=== PATIENT | male | born 1945 | race Caucasian/White ===

== ENCOUNTER 2019-06-17 06:00 | Outpatient (RCR) | payer MEDICARE, SELFPAY | END 2019-06-29 00:01 | LOC: APT 06:00 | PROVIDERS: Family Provider Family Medicine; Visit Provider Specialist | DX: Z47.1 Aftercare following joint replacement surgery (principal); Z96.651 Presence of right artificial knee joint | CPT/HCPCS: 97110 ×3; 97163 ==

== ENCOUNTER 2019-07-01 | Outpatient (RCR) | payer MEDICARE, SELFPAY | END 2019-07-30 23:59 | disposition home or self-care (01) | LOC: APT | PROVIDERS: PCP Family Medicine; Visit Provider Specialist | DX: Z47.1 Aftercare following joint replacement surgery (principal); Z96.651 Presence of right artificial knee joint | CPT/HCPCS: 97110 ==

== ENCOUNTER → 2019-07-05 09:54 | Outpatient (BNVA) | payer MEDICARE, SELFPAY | PROVIDERS: Family Provider Family Medicine; PCP Family Medicine; Visit Provider Specialist | DX: Z48.89 Encounter for other specified surgical aftercare (principal) | CPT/HCPCS: 73560; 73565 ==

== ENCOUNTER 2019-09-02 15:49 | Outpatient (CLI) | payer MEDICARE, SELFPAY ==
--- NOTE | 2019-09-02 | XR_ITS ---
WS: [id number] CHEST 2 VIEWS HISTORY: PRODUCTIVE COUGH COMPARISON: 05/31/2019 05/07/2019 Lungs: Moderate pulmonary hyperinflation with scattered granulomata. Patient has a known indeterminat e mass at the RIGHT lung base seen on the prior CT from 05/31/2019. This mass is not adequately evalua mikael radiographically. There is no pneumonia. Cardiac size: Normal. Mediastinum/Aorta: Mild atherosclerosis aorta. Bones: Thoracic spondylosis. XR/XR chest 2V* 26119 IMPRESSION: 1. Severe emphysema with no pneumonia. 2. Prior granulomatous disease. 3. Indeterminate mass at the RIGHT lung base seen on the chest CT of 05/31/2019 is not definitely seen radiographically. Radiograph is not an adequate study f or evaluating change. Chest CT with IV contrast should be obtained as recommend ed.
== END 2019-09-02 15:50 | disposition home or self-care (01) ==
LOC: RADOUTREAD 09-03 07:39
PROVIDERS: Family Provider Family Medicine; PCP Family Medicine; Visit Provider Family Medicine
DX: Z01.89 Encounter for other specified special examinations (principal)

== ENCOUNTER 2019-09-24 12:21 | Outpatient (CLI) | payer MEDICARE, SELFPAY ==
--- NOTE | 2019-09-24 12:39 | CT_ITS ---
WS: [id number] CT scan of the chest without IV contrast, additional two-dimensional coronal and sagittal reconstruct ion was performed. 09/24/2019 Clinical Data: ABNORMAL FINDINGS ON IMAGING TEST Comparison: CT chest, 05/31/2019 DLP: 1045.[address] scans at [facility] use at least one of these dose optimization techniques: automat ed exposure control; mA and/or kV adjustment per patient size (includes targeted exams where dose is matched to clinical indication); or iterative reconstruction. Findings: The right lower lobe posterior lesion noted on the prior study has completely cleared. Ther e is no residual. The lungs shows the changes of bullous emphysema. No nodules, masses or effusions a re seen. The heart size is normal with no pericardial effusion. Trachea bifurcates normally into the bronchi. The pulmonary arterial system and thoracic aorta demonstrate no abnormalities or dilatations . There is no axillary or significant mediastinal adenopathy. Calcified granulomas in both radha and t he subcarinal area. There are calcified granulomas in the peripheries of both lungs. The upper abdomen shows no change from before. There is osteoarthritic change of the thoracic vertebr al bodies. CT/CT chest wo con 52961 Impression: 1. Complete clearing of right lower lobe density which probably represented min imal basilar pneumonia. 2. Diffuse bullous emphysema unchanged.
== END 2019-09-24 12:22 | disposition home or self-care (01) ==
LOC: RADWPI 12:26
PROVIDERS: Family Provider Family Medicine; PCP Family Medicine; Visit Provider Family Medicine
DX: J43.9 Emphysema, unspecified (principal); R93.89 Abnormal findings on diagnostic imaging of other specified body structures
CPT/HCPCS: 71250

== ENCOUNTER → 2019-11-17 09:22 | Outpatient (BNVA) | payer MEDICARE, SELFPAY | PROVIDERS: Family Provider Family Medicine; PCP Family Medicine; Visit Provider Specialist | DX: Z48.89 Encounter for other specified surgical aftercare (principal); Z98.890 Other specified postprocedural states; Z96.651 Presence of right artificial knee joint | CPT/HCPCS: 73560; 73565 ==

== ENCOUNTER 2019-11-25 07:17 | Outpatient (CLI) | payer MEDICARE, SELFPAY ==
--- NOTE | 2019-11-25 08:00 | NM_ITS ---
WS: [id number] THREE-PHASE BONE SCAN HISTORY: ankle pain past surgery and fracture to ankle COMPARISON: Ankle radiographs obtained on 11/25/2019 for comparison. Patient is is injected with 25.7 mCi Tc99m HDP intravenously. Immediate angiographic phase imaging is performed over the area of concern. Static blood pool imaging also performed. Two-hour whole-body sc intigrams performed in anterior and posterior projections. Additional large field of view imaging sub mitted as necessary. 3 phase bone scan imaging is performed over the ankles. RIGHT ankle: Angiographic and blood pool phase imaging is normal. Delayed imaging is also normal. The re is no increased uptake at the ankle.. Prior RIGHT knee arthroplasty. Degenerative changes at the LEFT knee and at the AC joints and glenohu meral joints. Normal soft tissue uptake. Normal activity in the kidneys. NM/NM bone 3 phase 29342 IMPRESSION: Negative three-phase bone scan imaging of the RIGHT ankle. There is no evidence for osteomyelitis or acute fracture.
--- NOTE | 2019-11-25 10:47 | XR_ITS ---
WS: [id number] RIGHT ANKLE: 3 VIEW(S) TECHNIQUE: AP, oblique(s) and lateral. HISTORY: BONE SCAN COMPARISON COMPARISON: Bone scan imaging 11/25/2019. Bone scan was obtained to evaluate the RIGHT ankle. Plate and screw fixation distal fibula. No residual fracture. Screw fixation at the medial malleolus. There is mild narrowing of the tibiotalar joint space. No lucency around the screws or soft tissue e travis. No joint effusion. No soft tissue abnormality. XR/XR ankle RT min 3V* [id number] IMPRESSION: Status post bimalleolar ORIF. Mild degenerative changes at the tibiotalar joint.
== END 2019-11-25 07:18 | disposition home or self-care (01) ==
LOC: RAD 07:22
PROVIDERS: PCP Family Medicine; Visit Provider Specialist
DX: M25.571 Pain in right ankle and joints of right foot (principal)
CPT/HCPCS: 73610; 78315; A9561

== ENCOUNTER 2020-01-19 14:07 | Emergency (ER) | payer MEDICARE, SELFPAY ==
[2020-01-19 14:10] VITALS: BP 97/69; PULSE 84; RESP 20; TEMP 36.7; O2SAT 97; BMI 29.9
--- NOTE | 2020-01-19 15:07 | ED_ITS ---
Documented by User: LIZANDRO Rousseau 01/20/20 07:08 HPI - Abdominal Pain General: Chief Complaint: Abdominal Pain Stated Complaint: sent over by doctor fidelia Time Seen by Provider: 01/19/20 14:59 Source: patient Mode of arrival: ambulatory Limitations: no limitations History of Present Illness: HPI narrative: Patient is a 74-year-old male who presents to ED today along with his daughter for complaints of right upper quadrant pain and yellowing to his skin and eyes. Patient was seen by PCP Dr. Thompson and referred here for further evaluation. Patient tells me on Friday he began having a few episodes of non-bloody vomit. He states the following day he began developing right upper quadrant pain and noticed yesterday his skin and eyes turning yellow. Patient tells me he has no previous history of gallbladder disease. He has not been running fevers. He is having normal bowel movements. Urinary habits have been normal apart from some darker than normal urine. MD elicited complaint: abdominal pain Associated Symptoms: Reports nausea and vomiting; Denies change in stool character, chills, constipation, diarrhea, fever(s), hematochezia and melena Review of Systems Const: Denies: fever(s), chills or body aches Eyes: Reports: other (yellowing to eyes) Card: Denies: chest pain Resp: Denies: dyspnea GI: Reports: abdominal pain, nausea and vomiting; Denies: diarrhea, constipation, change in stool character, hematochezia, melena or white/light colored stool : Reports: other (dark colored urine); Denies: flank pain Skin/Breast: Denies: rash Neuro: Denies: headache(s), numbness in extremities, weakness in extremities or sensory changes PFS ED PFSH: Medical History (Updated 01/19/20 @ 21:22 by SKY Castro) Diabetes mellitus type 1 Primary osteoarthritis of right knee Surgical History Hx of total knee arthroplasty Right knee Family History Mother Hypertension Myocardial infarction CAD (coronary artery disease) Son Diabetes Social History Smoking and tobacco status: former smoker Alcohol intake: current Physical Exam Const: COMMON NORMALS: no acute distress, patient oriented x3, no limitations and alert NUTRITIONAL APPEARANCE: obese Eye: SCLERA: scleral abnormal (scleral icterus) Resp: COMMON NORMALS: normal respiratory effort and clear to auscultation bilaterally AUSCULTATION: clear to auscultation bilaterally Cardio: COMMON NORMALS: regular rate and regular rhythm RATE: regular rate RHYTHM: regular rhythm GI: COMMON NORMALS: Normal to inspection, nondistended, normoactive bowel sounds present, Soft to palpation, No hepatosplenomegaly present and no masses PALPATION: Yes Soft to palpation, Yes Tenderness to palpation present (GI) (RUQ) and Yes No hepatosplenomegaly present : COMMON NORMALS: Yes no CVA tenderness BLADDER/KIDNEY EXAM: Yes no CVA tenderness Back/Pelvis: COMMON NORMALS: no CVA tenderness Neuro: COMMON NORMALS: patient oriented x3 SENSORIUM/ORIENTATION: Yes alert Skin: NARRATIVE SKIN EXAM: jaundice Course Vital Signs: Vital signs: Vital Signs Temperature 98.1 F 01/19/20 14:10 Pulse Rate 72 01/19/20 21:51 Respiratory Rate 16 01/19/20 21:51 Blood Pressure 135/78 01/19/20 21:51 Pulse Oximetry 95 01/19/20 21:51 MDM - Abdominal Pain MDM Narrative: Medical decision making narrative: Patient with elevated LFTs, alk phos, lipase. Gallbladder ultrasound showing cholelithiasis with probable CBD stone. Patient will undergo MRCP evaluation. He is aware of possible transfer if a CBD stone is present. Care will be transferred over to SKY Castro at shift change. Lab Data: Labs: Lab Results 01/19/20 01/19/20 01/19/20 Range/Units 15:16 15:16 15:16 WBC 6.9 (4.0-10.0) 10^3/ uL RBC 4.19 (4.1-5.3) 10^6/u L Hgb 13.2 (11.7-16.6) g/dL Hct 40.3 L (42.0-52.0) % MCV 96.2 H (80-94) fL MCH 31.5 (28.0-34.0) pg MCHC 32.8 (30.0-36.0) g/dL RDW 16.8 H (12.1-15.1) % Plt Count 311 (130-400) 10^3/c mm MPV 11.3 H (7.4-10.4) fL Neut % (Auto) 61.1 % Lymph % (Auto) 18.3 % [place] % (Auto) 11.9 % Eos % (Auto) 7.4 % Baso % (Auto) 1.0 % Neut # (Auto) 4.20 (1.8-7.7) 10^3/u L Lymph # (Auto) 1.3 (0.8-4.8) 10^3/u L [place] # (Auto) 0.8 (0.2-0.9) 10^3/u L Eos # (Auto) 0.5 (0.0-0.8) 10^3/u L Baso # (Auto) 0.1 (0.0-0.1) 10^3/u L Nucleated RBC % (a uto) 0 % Nucleated RBCs # 0.0 /100WBC PT 13.10 (10.5-13.3) SECO NDS INR 0.96 (0.8-1.2) APTT 28.4 (23.9-36.7) SECO NDS Sodium 139 (136-145) mmol/L Potassium 4.2 (3.5-5.1) mmol/L Chloride 98 (98-107) mmol/L Carbon Dioxide 25 (22-29) mmol/L Anion Gap 20.2 H (5-19) BUN 54 H (8-23) mg/dL Creatinine 2.5 H (0.7-1.2) mg/dL GFR Calculation Not Reportable Glucose 101 (65-115) mg/dL Calculated Osmolal ity 287 (285-295) mOsm/k g Calcium 10.0 (8.5-10.5) mg/dL Total Bilirubin 17.4 H* (0.15-1.2) mg/dL AST 143 H (0-40) U/L ALT 191 H (0-41) U/L Alkaline Phosphata se 388 H (40-130) IU/L Ammonia (16-60) umol/L Total Protein 7.7 (6.6-8.7) g/dL Albumin 4.1 (3.5-5.2) g/dL Globulin 3.6 (1.3-4.6) g/dL Lipase 192 H (13-60) U/L Urine Color (Yellow) Urine Appearance (CLEAR) Urine pH (5-7) Ur Specific Gravit y (1.005-1.030) Urine Protein (Negative) Urine Glucose (UA) (Normal) Urine Ketones (Negative) Urine Blood (Negative) Urine Nitrate (Negative) Urine Bilirubin (NEGATIVE) Urine Urobilinogen (Negative) mg/dL Ur Leukocyte Erika ase (Negative) Urine RBC (0-2) /hpf Urine WBC (0-5) /hpf Ur Squamous Epith Cells (0-5) Amorphous Sediment Urine Bacteria (NONE) Coarse Granular Ca sts /lpf Urine Mucus Urine Opiates Scre en (Negative) ng/mL Acetaminophen < 5.0 L (10-30) ug/mL Ur Barbiturates Sc reen (Negative) ng/mL Ur Phencyclidine S crn (Negative) ng/mL Ur Amphetamines Sc reen (Negative) ng/mL U Benzodiazepines Scrn (Negative) ng/mL Urine Cocaine Scre en (Negative) ng/mL U Marijuana (THC) Screen (Negative) ng/mL Ethyl Alcohol < 10 (0-10) mg/dL Hepatitis A IgM Ab Non-reactive (Nonreactive) Hep Bs Antigen Non-reactive (Nonreactive) Hep B Core IgM Ab Non-reactive (Nonreactive) Hepatitis C Antibo dy Non-reactive (Nonreactive) 01/19/20 01/19/20 01/19/20 Range/Units 15:16 15:42 15:42 WBC (4.0-10.0) 10^3/ uL RBC (4.1-5.3) 10^6/u L Hgb (11.7-16.6) g/dL Hct (42.0-52.0) % MCV (80-94) fL MCH (28.0-34.0) pg MCHC (30.0-36.0) g/dL RDW (12.1-15.1) % Plt Count (130-400) 10^3/c mm MPV (7.4-10.4) fL Neut % (Auto) % Lymph % (Auto) % [place] % (Auto) % Eos % (Auto) % Baso % (Auto) % Neut # (Auto) (1.8-7.7) 10^3/u L Lymph # (Auto) (0.8-4.8) 10^3/u L [place] # (Auto) (0.2-0.9) 10^3/u L Eos # (Auto) (0.0-0.8) 10^3/u L Baso # (Auto) (0.0-0.1) 10^3/u L Nucleated RBC % (a uto) % Nucleated RBCs # /100WBC PT (10.5-13.3) SECO NDS INR (0.8-1.2) APTT (23.9-36.7) SECO NDS Sodium (136-145) mmol/L Potassium (3.5-5.1) mmol/L Chloride (98-107) mmol/L Carbon Dioxide (22-29) mmol/L Anion Gap (5-19) BUN (8-23) mg/dL Creatinine (0.7-1.2) mg/dL GFR Calculation Glucose (65-115) mg/dL Calculated Osmolal ity (285-295) mOsm/k g Calcium (8.5-10.5) mg/dL Total Bilirubin (0.15-1.2) mg/dL AST (0-40) U/L ALT (0-41) U/L Alkaline Phosphata se (40-130) IU/L Ammonia 19 (16-60) umol/L Total Protein (6.6-8.7) g/dL Albumin (3.5-5.2) g/dL Globulin (1.3-4.6) g/dL Lipase (13-60) U/L Urine Color [place] (Yellow) Urine Appearance Clear (CLEAR) Urine pH 5 (5-7) Ur Specific Gravit y 1.010 (1.005-1.030) Urine Protein Trace (Negative) Urine Glucose (UA) Norm (Normal) Urine Ketones Negative (Negative) Urine Blood Neg (Negative) Urine Nitrate Negative (Negative) Urine Bilirubin 2+ H (NEGATIVE) Urine Urobilinogen 4 H (Negative) mg/dL Ur Leukocyte Erika ase Negative (Negative) Urine RBC None (0-2) /hpf Urine WBC 0-4 H (0-5) /hpf Ur Squamous Epith Cells 0-4 H (0-5) Amorphous Sediment Not Reportable Urine Bacteria 1+ H (NONE) Coarse Granular Ca sts 0-4 H /lpf Urine Mucus 1+ Urine Opiates Scre en Negative (Negative) ng/mL Acetaminophen (10-30) ug/mL Ur Barbiturates Sc reen Negative (Negative) ng/mL Ur Phencyclidine S crn Negative (Negative) ng/mL Ur Amphetamines Sc reen Negative (Negative) ng/mL U Benzodiazepines Scrn Negative (Negative) ng/mL Urine Cocaine Scre en Negative (Negative) ng/mL U Marijuana (THC) Screen Negative (Negative) ng/mL Ethyl Alcohol (0-10) mg/dL Hepatitis A IgM Ab (Nonreactive) Hep Bs Antigen (Nonreactive) Hep B Core IgM Ab (Nonreactive) Hepatitis C Antibo dy (Nonreactive) Imaging Data ^: US gallbladder: Radiologist's impression: [address] [address] Ultrasound Report Signed Patient: Rohit Merritt Unit #: [id number] : 1945 Age/Sex: 74 / M ADM Date: 01/19/20 Loc: ER Room/Bed: Attending Dr: Ordering Provider/Ordering MD: Dalila Gotti Date of Service: 01/19/20 Procedure(s): US gall bladder 27671 Accession Number(s): [id number] Report Number: [id number] WS: [id number] RIGHT UPPER QUADRANT ULTRASOUND HISTORY: pain; jaundice COMPARISON: None available. Liver: 21.1 cm in length. Liver is moderately enlarged with coarsened echotexture. Very mild central bile duct dilatation. Gallbladder: Normally distended gallbladder with numerous stones. Gallbladder wall is top normal in 3 to 4 mm. No pericholecystic fluid. CBD: 1.0 cm Pancreas: Poorly visualized pancreas. No pancreatic head mass. Right kidney: 9.1 cm in length. Normal echogenicity with no mass or hydronephrosis. Aorta and IVC: Unremarkable. No ascites. US/US gall bladder 55076 IMPRESSION: 1. Cholelithiasis without other evidence for acute cholecystitis. 2. Dilated common bile duct and mild central hepatic duct dilatation. Recommend further evaluation by CT to exclude common bile duct stone. Dictated By: Jeane Mendoza DO Signed By: Jeane Mendoza DO Signed Date/Time: 01/19/20 1606 DD/ 1603 Discharge Plan Discharge Patient Disposition: Xfer Other Clinical Impression: Common bile duct (CBD) obstruction Condition: Stable Referrals: Kyle Thompson MD [Primary Care Provider] - Discharge Date/Time: 01/19/20 23:18 Coding Level of Care Code ED Blender/Braze Applicator for Chg Fwd Exam Detailed Documented by User: SKY Castro 01/19/20 23:18 HPI - Abdominal Pain General: Chief Complaint: Abdominal Pain Stated Complaint: sent over by doctor fidelia Time Seen by Provider: 01/19/20 14:59 PFSH ED PFSH: Medical History (Updated 01/19/20 @ 21:22 by SKY Castro) Diabetes mellitus type 1 Primary osteoarthritis of right knee Surgical History Hx of total knee arthroplasty Right knee Family History Mother Hypertension Myocardial infarction CAD (coronary artery disease) Son Diabetes Social History Smoking and tobacco status: former smoker Alcohol intake: current Course Vital Signs: Vital signs: Vital Signs Temperature 98.1 F 01/19/20 14:10 Pulse Rate 72 01/19/20 21:51 Respiratory Rate 16 01/19/20 21:51 Blood Pressure 135/78 01/19/20 21:51 Pulse Oximetry 95 01/19/20 21:51 MDM - Abdominal Pain MDM Narrative: Medical decision making narrative: [facility] think patient spoke with [facility] in transfer he spoke with Dr. Albaro Francis agreed except patient I was not involved speaking to Dr. Avila paperwork was signed patient's MRCP was positive for stone in the common bile duct will be going by ground ambulance Lab Data: Labs: Lab Results 01/19/20 01/19/20 01/19/20 Range/Units 15:16 15:16 15:16 WBC 6.9 (4.0-10.0) 10^3/ uL RBC 4.19 (4.1-5.3) 10^6/u L Hgb 13.2 (11.7-16.6) g/dL Hct 40.3 L (42.0-52.0) % MCV 96.2 H (80-94) fL MCH 31.5 (28.0-34.0) pg MCHC 32.8 (30.0-36.0) g/dL RDW 16.8 H (12.1-15.1) % Plt Count 311 (130-400) 10^3/c mm MPV 11.3 H (7.4-10.4) fL Neut % (Auto) 61.1 % Lymph % (Auto) 18.3 % [place] % (Auto) 11.9 % Eos % (Auto) 7.4 % Baso % (Auto) 1.0 % Neut # (Auto) 4.20 (1.8-7.7) 10^3/u L Lymph # (Auto) 1.3 (0.8-4.8) 10^3/u L [place] # (Auto) 0.8 (0.2-0.9) 10^3/u L Eos # (Auto) 0.5 (0.0-0.8) 10^3/u L Baso # (Auto) 0.1 (0.0-0.1) 10^3/u L Nucleated RBC % (a uto) 0 % Nucleated RBCs # 0.0 /100WBC PT 13.10 (10.5-13.3) SECO NDS INR 0.96 (0.8-1.2) APTT 28.4 (23.9-36.7) SECO NDS Sodium 139 (136-145) mmol/L Potassium 4.2 (3.5-5.1) mmol/L Chloride 98 (98-107) mmol/L Carbon Dioxide 25 (22-29) mmol/L Anion Gap 20.2 H (5-19) BUN 54 H (8-23) mg/dL Creatinine 2.5 H (0.7-1.2) mg/dL GFR Calculation Not Reportable Glucose 101 (65-115) mg/dL Calculated Osmolal ity 287 (285-295) mOsm/k g Calcium 10.0 (8.5-10.5) mg/dL Total Bilirubin 17.4 H* (0.15-1.2) mg/dL AST 143 H (0-40) U/L ALT 191 H (0-41) U/L Alkaline Phosphata se 388 H (40-130) IU/L Ammonia (16-60) umol/L Total Protein 7.7 (6.6-8.7) g/dL Albumin 4.1 (3.5-5.2) g/dL Globulin 3.6 (1.3-4.6) g/dL Lipase 192 H (13-60) U/L Urine Color (Yellow) Urine Appearance (CLEAR) Urine pH (5-7) Ur Specific Gravit y (1.005-1.030) Urine Protein (Negative) Urine Glucose (UA) (Normal) Urine Ketones (Negative) Urine Blood (Negative) Urine Nitrate (Negative) Urine Bilirubin (NEGATIVE) Urine Urobilinogen (Negative) mg/dL Ur Leukocyte Erika ase (Negative) Urine RBC (0-2) /hpf Urine WBC (0-5) /hpf Ur Squamous Epith Cells (0-5) Amorphous Sediment Urine Bacteria (NONE) Coarse Granular Ca sts /lpf Urine Mucus Urine Opiates Scre en (Negative) ng/mL Acetaminophen < 5.0 L (10-30) ug/mL Ur Barbiturates Sc reen (Negative) ng/mL Ur Phencyclidine S crn (Negative) ng/mL Ur Amphetamines Sc reen (Negative) ng/mL U Benzodiazepines Scrn (Negative) ng/mL Urine Cocaine Scre en (Negative) ng/mL U Marijuana (THC) Screen (Negative) ng/mL Ethyl Alcohol < 10 (0-10) mg/dL Hepatitis A IgM Ab Non-reactive (Nonreactive) Hep Bs Antigen Non-reactive (Nonreactive) Hep B Core IgM Ab Non-reactive (Nonreactive) Hepatitis C Antibo dy Non-reactive (Nonreactive) 01/19/20 01/19/20 01/19/20 Range/Units 15:16 15:42 15:42 WBC (4.0-10.0) 10^3/ uL RBC (4.1-5.3) 10^6/u L Hgb (11.7-16.6) g/dL Hct (42.0-52.0) % MCV (80-94) fL MCH (28.0-34.0) pg MCHC (30.0-36.0) g/dL RDW (12.1-15.1) % Plt Count (130-400) 10^3/c mm MPV (7.4-10.4) fL Neut % (Auto) % Lymph % (Auto) % [place] % (Auto) % Eos % (Auto) % Baso % (Auto) % Neut # (Auto) (1.8-7.7) 10^3/u L Lymph # (Auto) (0.8-4.8) 10^3/u L [place] # (Auto) (0.2-0.9) 10^3/u L Eos # (Auto) (0.0-0.8) 10^3/u L Baso # (Auto) (0.0-0.1) 10^3/u L Nucleated RBC % (a uto) % Nucleated RBCs # /100WBC PT (10.5-13.3) SECO NDS INR (0.8-1.2) APTT (23.9-36.7) SECO NDS Sodium (136-145) mmol/L Potassium (3.5-5.1) mmol/L Chloride (98-107) mmol/L Carbon Dioxide (22-29) mmol/L Anion Gap (5-19) BUN (8-23) mg/dL Creatinine (0.7-1.2) mg/dL GFR Calculation Glucose (65-115) mg/dL Calculated Osmolal ity (285-295) mOsm/k g Calcium (8.5-10.5) mg/dL Total Bilirubin (0.15-1.2) mg/dL AST (0-40) U/L ALT (0-41) U/L Alkaline Phosphata se (40-130) IU/L Ammonia 19 (16-60) umol/L Total Protein (6.6-8.7) g/dL Albumin (3.5-5.2) g/dL Globulin (1.3-4.6) g/dL Lipase (13-60) U/L Urine Color [place] (Yellow) Urine Appearance Clear (CLEAR) Urine pH 5 (5-7) Ur Specific Gravit y 1.010 (1.005-1.030) Urine Protein Trace (Negative) Urine Glucose (UA) Norm (Normal) Urine Ketones Negative (Negative) Urine Blood Neg (Negative) Urine Nitrate Negative (Negative) Urine Bilirubin 2+ H (NEGATIVE) Urine Urobilinogen 4 H (Negative) mg/dL Ur Leukocyte Erika ase Negative (Negative) Urine RBC None (0-2) /hpf Urine WBC 0-4 H (0-5) /hpf Ur Squamous Epith Cells 0-4 H (0-5) Amorphous Sediment Not Reportable Urine Bacteria 1+ H (NONE) Coarse Granular Ca sts 0-4 H /lpf Urine Mucus 1+ Urine Opiates Scre en Negative (Negative) ng/mL Acetaminophen (10-30) ug/mL Ur Barbiturates Sc reen Negative (Negative) ng/mL Ur Phencyclidine S crn Negative (Negative) ng/mL Ur Amphetamines Sc reen Negative (Negative) ng/mL U Benzodiazepines Scrn Negative (Negative) ng/mL Urine Cocaine Scre en Negative (Negative) ng/mL U Marijuana (THC) Screen Negative (Negative) ng/mL Ethyl Alcohol (0-10) mg/dL Hepatitis A IgM Ab (Nonreactive) Hep Bs Antigen (Nonreactive) Hep B Core IgM Ab (Nonreactive) Hepatitis C Antibo dy (Nonreactive) Discharge Plan Discharge Patient Disposition: Xfer Other Clinical Impression: Common bile duct (CBD) obstruction Condition: Stable Referrals: Kyle Thompson MD [Primary Care Provider] - Discharge Date/Time: 01/19/20 23:18 Coding Level of Care Code ED Blender/Braze Applicator for Chg Fwd Exam Detailed
--- NOTE | 2020-01-19 15:18 | US_ITS ---
WS: [id number] RIGHT UPPER QUADRANT ULTRASOUND HISTORY: pain; jaundice COMPARISON: None available. Liver: 21.1 cm in length. Liver is moderately enlarged with coarsened echotexture. Very mild central bile duct dilatation. Gallbladder: Normally distended gallbladder with numerous stones. Gallbladder wall is top normal in 3 to 4 mm. No pericholecystic fluid. CBD: 1.0 cm Pancreas: Poorly visualized pancreas. No pancreatic head mass. Right kidney: 9.1 cm in length. Normal echogenicity with no mass or hydronephrosis. Aorta and IVC: Unremarkable. No ascites. US/US gall bladder [id number] IMPRESSION: 1. Cholelithiasis without other evidence for acute cholecystitis. 2. Dilated common bile duct and mild central hepatic duct dilatation. Recommen d further evaluation by CT to exclude common bile duct stone.
[2020-01-19 15:28] LABS: Basophils # 0.1 10^3/uL (0.0-0.1); Eosinophils # 0.5 10^3/uL (0.0-0.8); Eosinophils % 7.4 %; Hematocrit 40.3 % (42.0-52.0); Hemoglobin 13.2 g/dL (11.7-16.6); Lymphocytes # 1.3 10^3/uL (0.8-4.8); Lymphocytes % 18.3 %; Mean Corpuscular HGB Conc 32.8 g/dL (30.0-36.0); Mean Corpuscular Hemoglobin 31.5 pg (28.0-34.0); Mean Corpuscular Volume 96.2 fL (80-94); Mean Platelet Volume 11.3 fL (7.4-10.4); Monocytes # 0.8 10^3/uL (0.2-0.9); Monocytes % 11.9 %; Neutrophils % 61.1 %; Nucleated Red Blood Cells % 0 %; Platelet Count 311 10^3/cmm (130-400); Red Blood Count 4.19 10^6/uL (4.1-5.3); Red Cell Distribution Width 16.8 % (12.1-15.1); White Blood Count 6.9 10^3/uL (4.0-10.0)
[2020-01-19 15:42] LABS: Ammonia 19 umol/L (16-60)
[2020-01-19 15:43] LABS: INR 0.96 (0.8-1.2)
[2020-01-19 15:44] LABS: Partial Thromboplastin Time 28.4 SECONDS (23.9-36.7)
[2020-01-19 16:05] LABS: Hepatitis A Antibody IgM Non-Reactive (Nonreactive); Hepatitis B Core IgM Non-Reactive (Nonreactive); Hepatitis B Surface Antigen Non-Reactive (Nonreactive); Hepatitis C Virus Antibody Non-Reactive (Nonreactive)
[2020-01-19 16:17] VITALS: BP 103/59; PULSE 70; RESP 16; O2SAT 99
[2020-01-19 16:17] LABS: Alanine Aminotransferase 191 U/L (0-41); Albumin Level 4.1 g/dL (3.5-5.2); Alkaline Phosphatase 388 IU/L (40-130); Anion Gap 20.2 (5-19); Aspartate Amino Transferase 143 U/L (0-40); Blood Urea Nitrogen 54 mg/dL (8-23); Carbon Dioxide 25 mmol/L (22-29); Chloride 98 mmol/L (98-107); Globulin 3.6 g/dL (1.3-4.6); Glucose 101 mg/dL (65-115); Lipase 192 U/L (13-60); Osmolality Calculated 287 mOsm/kg (285-295); Potassium 4.2 mmol/L (3.5-5.1); Sodium 139 mmol/L (136-145); Total Protein 7.7 g/dL (6.6-8.7)
[2020-01-19 16:24] LABS: Acetaminophen < 5.0 ug/mL (10-30); Alcohol Level < 10 mg/dL (0-10); Total Bilirubin 17.4 mg/dL (0.15-1.2)
[2020-01-19 16:30] LABS: Amphetamines Screen Urine Negative (Negative); Barbiturates Screen Urine Negative (Negative); Benzodiazepines Screen Urine Negative (Negative); Cocaine Screen Urine Negative (Negative); Opiate Screen Urine Negative (Negative); PCP Screen Urine Negative (Negative); THC Screen Urine Negative (Negative)
[2020-01-19 16:37] LABS: Urine Appearance Clear (CLEAR); Urine Color Orange (Yellow)
[2020-01-19 16:38] LABS: Add Urine Microscopic? YES; Bilirubin Urine 2+ (NEGATIVE); Blood Urine Neg (Negative); Glucose Urine UA Norm (Normal); Ketones Urine Negative (Negative); Leukocyte Esterase Urine Negative (Negative); Nitrate Urine Negative (Negative); Protein Urine Trace (Negative); Squamous Epithelial Cell Urine 0-4 (0-5); Urobilinogen Urine 4 mg/dL (Negative); WBC Urine 0-4 /hpf (0-5); pH Urine 5 (5-7)
[2020-01-19 16:39] LABS: Add Urine Culture? No; Bacteria Urine 1+; Coarse Granular Casts Urine 0-4 /lpf; Mucus Urine 1+
--- NOTE | 2020-01-19 16:42 | MRR_ITS ---
PROCEDURE INFORMATION: Exam: MR Abdomen Without Contrast, MRCP Exam date and time: 01/19/2020 4:43 PM Age: 74 years old Clinical indication: Constipation and vomiting; Additional info: Ruq pain; Elevated lfts, lipase; Possible cbd stone TECHNIQUE: Imaging protocol: MR of the abdomen without contrast. Exam focused on the bile ducts and pancreatic ducts. 3D MRCP images were acquired and processed without radiologist supervision. COMPARISON: US gall bladder [id number] 01/19/2020 3:45 PM FINDINGS: Liver: No mass. Gallbladder and bile ducts: Gallbladder contains numerous small gallstones. No gallbladder wall thickening or pericholecystic fluid. No asymmetrical gallbladder wall thickening. Suspected gallstone within the proximal cystic duct measuring approximately 5 mm. Distal common bile duct choledocholithiasis foci measuring approximately 6 mm. Common bile duct measures 9 mm proximally and 7 mm distally. Mild intrahepatic biliary ectasia. Pancreas: Mild atrophy with partial fatty replacement of the pancreas. No pancreatic ductal ectasia. Kidneys and ureters: Small left renal cortical cysts. No follow-up recommended. Intraperitoneal space: No fluid collection. MR/MR MRCP [id number] IMPRESSION: 1. Distal common bile duct choledocholithiasis foci measuring approximately 6 mm. 2. Cholelithiasis. 3. Suspected proximal cystic duct stone measuring approximately 5 mm. 4. Mild intra and extrahepatic biliary ectasia with the common bile duct measuring 9 mm proximally and 7 mm distally.
[2020-01-19] MEDS: sodium chloride 0.9% 1,000 ML 999 ML IV (16:57)
--- NOTE | 2020-01-19 17:23 | PC.NURSE ---
PT BEING TRANSPORTED VIA AMBULANCE TO MRI.
[2020-01-19 18:29] VITALS: BP 130/70; PULSE 71; RESP 16; O2SAT 98
[2020-01-19 20:30] VITALS: BP 121/59; PULSE 86; RESP 18; O2SAT 97
[2020-01-19 21:51] VITALS: BP 135/78; PULSE 72; RESP 16; O2SAT 95
== END 2020-01-19 23:18 | disposition other institution (70) ==
PROVIDERS: Family Medicine; Physician Assistant; Emergency Provider Nurse Practitioner Family; PCP Family Medicine
DX: K83.1 Obstruction of bile duct (principal); E10.9 Type 1 diabetes mellitus without complications; Z87.891 Personal history of nicotine dependence
CPT/HCPCS: 12345; 36415; 74181; 76705; 80053; 80074; 80306; 80307; 81001; 81003; 82140; 83690; 85025; 85610; 85730; 96360; 99283; 99285; J7030

== ENCOUNTER 2021-12-14 08:09 | Outpatient (CLI) | payer BC, SELFPAY ==
--- NOTE | 2021-12-14 08:16 | CT_ITS ---
WS: [id number] CT CHEST WITH INTRAVENOUS CONTRAST HISTORY: CHRONIC COUGH TECHNIQUE: Contiguous 5 mm axial imaging performed on the thorax. Coronal and sagittal reformats are submitted. All CT scans at [facility] use at least one of these dose optimization techniques: automated exposure control; mA and/or kV adjustment per patient size (includes targeted exams where dose is matched to clinical indication); or iterative reconstruction. CONTRAST: Visipaque 320; 50 mL IV. DLP: 800.91 mGy.cm COMPARISON: 09/24/2019, chest radiograph 12/10/2021 Lungs and central airway: Chronic emphysema. New nodular opacifications in the RIGHT upper lobe. Tubu lar and nodular appearance suggests bronchial obstruction and opacifications. This is adjacent to a l arge bulla. Benign granuloma RIGHT lower lobe. Numerous scattered granulomata throughout the LEFT eulalia g. Pleura: Normal. No pleural effusion. Heart and pericardium: Normal size heart with no pericardial effusion. Mediastinum and radha: Soft tissue lymphadenopathy at the RIGHT hilum. Cluster of lymph nodes measures 3.6 x 2.9 cm. Small caliber RIGHT upper lobe pulmonary artery. The configuration of the arteries is similar to the prior study from 05/31/2019. The soft tissue at the RIGHT hilum appears external to the pulmonary arteries and is probably adenopathy. This study was not protocoled for pulmonary embolism. Small amount of debris in the trachea. Vessels: Normal size pulmonary artery. Atherosclerosis aorta. No RIGHT heart strain. Chest wall and lower neck: No soft tissue masses. Upper abdomen: Small hiatal hernia. Prior cholecystectomy. There is a tiny focus of air near the port a hepatis which may be of pneumobilia. No adrenal mass. Osseous structures: Moderate thoracic spondylosis. CT/CT chest w con* [id number] IMPRESSION: 1. Nodular infiltrate RIGHT upper lobe corresponds to the finding on the recen t radiograph. Suspect this is bronchial occlusion and endobronchial pneumonia. There is additional RIGHT hilar lymphadenopathy. Neoplasm is obviously not excl uded. Recommend short-term CT follow-up to exclude a neoplasm. Suggest 2 week f ollow-up after treatment. 2. Severe emphysema and prior granulomatous disease. 3. Prominent soft tissue at the RIGHT hilum is probably all adenopathy. It is difficult to differentiate the lymph nodes from the pulmonary artery as this st udy was not obtained as a CTA angiogram for PE. Clinically if there is concern for pulmonary embolism additional CT angiogram should be obtained. Notified Kyle Thompson MD at 12/14/2021 9:21 AM.
[2021-12-14] MEDS: iodixanol 320 mg/mL 100mL Btl IV (08:54)
== END 2021-12-14 08:10 | disposition home or self-care (01) ==
LOC: RAD 08:11
PROVIDERS: PCP Family Medicine; Visit Provider Family Medicine
DX: J43.9 Emphysema, unspecified (principal)
CPT/HCPCS: 71260

== ENCOUNTER → 2021-12-28 09:06 | Outpatient (BNVA) | payer MEDICARE, SELFPAY | PROVIDERS: PCP Family Medicine; Visit Provider Internal Medicine Critical Care Medicine | DX: R59.0 Localized enlarged lymph nodes (principal); J44.9 Chronic obstructive pulmonary disease, unspecified; Z87.891 Personal history of nicotine dependence; I10 Essential (primary) hypertension; E10.8 Type 1 diabetes mellitus with unspecified complications | CPT/HCPCS: 99204 ==

== ENCOUNTER 2022-01-01 06:41 | Day surgery (SDC) | payer MEDICARE, SELFPAY ==
[2022-01-01] VITALS (8 sets, daily range): BP systolic 110–129; BP diastolic 64–82; PULSE 60–75; RESP 16–18; TEMP 36.1–36.2; O2SAT 95–97; BMI 29.0
--- NOTE | 2022-01-01 06:51 | ECG_ITS ---
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 Measurements Intervals [place] Rate: 69 P: 102 CA: 175 QRS: 30 QRSD: 93 T: 65 QT: 396 QTc: 425 Interpretive Statements SINUS RHYTHM Compared to ECG 05/07/2019 09:06:54 No significant changes Electronically Signed On 01-01-2022 16:58:24 CDT by Bryon Conte M.D. [id number]
--- NOTE | 2022-01-01 07:15 | ANES.PREANE2 ---
Pre-Anesthetic Assessment Height/Weight: Height 1.8 m Weight 94.347 kg Temp Pulse Resp BP Pulse Ox 97.1 F L 75 18 129/80 97 01/01/22 07:08 01/01/22 07:08 01/01/22 07:08 01/01/22 07:08 01/01/22 07:08 Preop Diagnosis: Right hilar lymphadenopathy Operation Date: 01/01/22 07:10 Proposed Procedures p Bronch, EBUS, 24554,21704, 08553, 54160,R59.0(Not Applicable) - Anjum Torres MD s Ebus(Not Applicable) - Anjum Torres MD Familial anesthetic complications: no issues Was Beta Esequiel taken within 24 hours: N/A Was Clonidine taken within 24 hours: N/A Last intake: Intake Last Liquid Date 12/31/21 Last Liquid Time 15:30 Last Solid Date 12/31/21 Last Solid Time 15:30 Social No alcohol and No tobacco previous smoker 2004 Exam alert, oriented x 3, clear to auscultation bilaterally and regular rate & rhythm Airway Submandibular: within normal limits Cervical ROM: within normal limits Mallampati: Class I Dentition: false Pulmonary Chronic Obstructive Pulmonary Disease, Sleep Apnea and Shortness of Breath CV/HEM Stable Angina (last took nitro 3-4 weeks prior states chest pain is pleuritic usually happens when he breaths heavy. ) and Hypertension Chronic Renal Insufficiency Hepatic None reported GI Gastroesophageal Reflux Disease Metabolic Diabetes Mellitus and Hyperlipidemia [facility] [place] None reported Neuropsych None reported Anesthetic Plan ASA status: 3 Anesthesia: General Medications/Allergies Home Medications Medication Instructions Recorded Confirmed Last Taken Type budesonide-formoterol HFA 160 2 puff INHALATION BID 07/05/19 01/01/22 1 Week Ago History mcg-4.5 mcg/actuation aerosol ~12/25/21 inhaler (Symbicort) losartan 100 1 tab PO DAILY 07/05/19 01/01/22 01/01/22 History mg-hydrochlorothiazide 12.5 mg tablet nitroglycerin 0.4 mg sublingual 0.4 mg SUBLINGUAL Q5M PRN 07/05/19 01/01/22 2 Months Ago History tablet (Nitrostat) ~11/01/21 potassium chloride 10 mEq 10 meq PO DAILY 07/05/19 01/01/22 12/31/21 History tablet,extended release (Klor-Con) fluticasone propionate 50 1 spray INTRANASAL BID 12/28/21 01/01/22 12/31/21 History mcg/actuation nasal spray,suspension (Allergy Relief (fluticasone)) furosemide 20 mg tablet 20 mg PO DAILY PRN 12/28/21 01/01/22 6 Months Ago History ~07/04/21 glipizide 2.5 mg tablet, extended 2.5 mg PO DAILY tab 12/28/21 01/01/22 12/31/21 History release 24 hr Allergies Allergy/AdvReac Type Severity Reaction Status Date / Time No Known Allergies Allergy Verified 01/01/22 06:59 [facility] Anesthesia Medical History Bradycardia COPD (chronic obstructive pulmonary disease) Diabetes mellitus type 1 Hypertension Primary osteoarthritis of right knee Sleep apnea Surgical History History of ankle surgery Hx of total knee arthroplasty Right knee Family History Mother Hypertension Myocardial infarction CAD (coronary artery disease) Son Diabetes Social History Smoking and tobacco status: former smoker Quit status (tobacco): has quit using tobacco Year quit tobacco: 1972 Former quit date comment: 1.5 ppd X 10 years Alcohol intake: current Data Anesthesia Cardiac Studies: No Data to Display
[2022-01-01] MEDS: sodium chloride 0.9% 1,000 ML 30 ML IV (07:21)
--- NOTE | 2022-01-01 07:46 | W.PM.OPSUD ---
Surgery/Procedure H&P Update DATE OF PROCEDURE: January 01, 2022 DATE H&P PERFORMED: 12/28/21 PREOP DIAGNOSIS: Right hilar lymphadenopathy PRIMARY INDICATION FOR PROCEDURE: Right hilar lymphadenopathy PLANNED PROCEDURE: Bronchoscopy inspection of the airway, bronchoalveolar lavage, possible endobronchial biopsy, endobronchial ultrasound-guided transbronchial needle aspiration of lymph nodes and control of bleeding. Operation Date: 01/01/22 07:10 Proposed Procedures p Bronch, EBUS, 12233,36629, 45640, 40473,R59.0(Not Applicable) - Anjum Torres MD s Ebus(Not Applicable) - Anjum Torres MD
[2022-01-01 07:50] LABS: Anion Gap 16.2 (5-19); Blood Urea Nitrogen 29 mg/dL (8-23); Calcium 9.2 mg/dL (8.5-10.5); Carbon Dioxide 24 mmol/L (22-29); Chloride 103 mmol/L (98-107); Glucose 84 mg/dL (65-115); Osmolality Calculated 293 mOsm/kg (285-295); Potassium 4.2 mmol/L (3.5-5.1); Sodium 139 mmol/L (136-145)
[2022-01-01 08:50] LABS: Cyto Order Verification Order Verified
--- NOTE | 2022-01-01 09:01 | P.OP_ITS ---
Operative Report Date of procedure: January 01, 2022 Pre-op diagnosis: Preop Diagnosis Right hilar lymphadenopathy Post-op diagnosis: Same Post-op findings: Name of the procedure: Bronchoscopy with inspection of the airway, bronchoalveolar lavage, endobronchial ultrasound-guided transbronchial needle aspiration of lymph nodes and control of bleeding. Indication: Right hilar lymphadenopathy Anesthesia: General anesthesia. Local anesthesia: The alexandra in the right and left mainstem bronchi were anesthetized with 1% lidocaine, 3 mL. Description of the procedure: The procedure was explained to the patient and the consent was obtained. The patient was brought to the OR. The patient underwent endotracheal intubation for general anesthesia. Following induction of general anesthesia, the bronchoscope was advanced through the ET tube. The lower trachea appeared to be normal. The alexandra was sharp. The alexandra, the right and left mainstem bronchi are anesthetized with 1% lidocaine. In a systematic manner bilateral bronchial tree was then examined. The bronchoscope was advanced into the left mainstem bronchus. The left upper lobe, lingula and left lower lobe bronchi were examined up to the third subsegmental level and no abnormalities were identified.The bronchoscope was then introduced into the right mainstem bronchus. The right upper lobe, right middle lobe and right lower lobe bronchi were examined up to the third subsegmental level and no abnormalities were identified. There was mild mucus throughout the airways. Bronchoalveolar lavage was performed from the posterior segment of the right upper lobe. 2 aliquots of 60 mL saline was instilled. Fluid return was 25 mm. The fluid was cloudy. The endobronchial ultrasound was introduced through the ET tube. Significant right hilar lymphadenopathy was noted. There was mild paratracheal lymphadenopathy as well. Fine-needle aspiration was obtained from the right hilar lymph node. Multiple samples were obtained. Samples: 1. Bronchoalveolar lavage specimen was sent for cell count and differential, Gr am stain and culture, fungal stain and culture, AFB stain and culture. 2. The transbronchial needle aspiration of the aforementioned lymph node was sent for histopathology. Complications: There was no immediate complications.
--- NOTE | 2022-01-01 14:40 | ANE.PACU2 ---
Inpatient post-anesthesia follow up: Airway intact: Yes Vital signs: Temperature 97.0 F Pulse Rate 60 Respiratory Rate 16 Blood Pressure 117/82 Pulse Oximetry 95 Oxygen Delivery Me thod Room Air Oxygen Flow Rate Fraction of Inspir ed Oxygen Hydration adequate: Yes Nausea and vomiting: No Pain level: 2 Mental status: Baseline
[2022-01-04 13:46] LABS: Total Cells Counted Bronch 100
[2022-01-04 13:47] LABS: Apprearance, Bronch Wash Clear (CLEAR); Color, Bronc Wash Slight Pink
[2022-01-04 13:48] LABS: Bronch Source Right Upper Lobe
== END 2022-01-01 10:21 | disposition home or self-care (01) ==
PROVIDERS: Anesthesiology; PCP Family Medicine; Visit Provider Internal Medicine Critical Care Medicine
PROC: 0BJ08ZZ Inspection of Tracheobronchial Tree, Via Natural or Artificial Opening Endoscopic (ICD-10-PCS; CPT 31622; principal; 2022-01-01 07:00)
PROC: BB4BZZZ Ultrasonography of Pleura (ICD-10-PCS; 2022-01-01 07:00)
DX: I89.0 Lymphedema, not elsewhere classified (principal)
CPT/HCPCS: 31624; 31652; 36415; 80048; 80503; 87015; 87070; 87102; 87116; 87205; 87206; 87801; 88108; 88305; 88342; 89050; 93005; J1100; J2405; J2704; J3010; J3490; J7030

== ENCOUNTER 2022-01-14 12:34 | Oncology outpatient (recurring) (ONCR) | payer MEDICARE, SELFPAY | END 2022-01-14 23:59 | disposition home or self-care (01) | PROVIDERS: PCP Family Medicine; Visit Provider Internal Medicine Medical Oncology | DX: C34.11 Malignant neoplasm of upper lobe, right bronchus or lung; Z87.891 Personal history of nicotine dependence; R19.7 Diarrhea, unspecified; J44.9 Chronic obstructive pulmonary disease, unspecified; F09 Unspecified mental disorder due to known physiological condition | CPT/HCPCS: 99205 ==

== ENCOUNTER 2022-01-15 14:23 | Outpatient (CLI) | payer MEDICARE, SELFPAY ==
[2022-01-15 14:58] LABS: Basophils # 0.1 10^3/uL (0.0-0.1); Basophils % 0.5 %; Eosinophils # 1.3 10^3/uL (0.0-0.8); Hematocrit 38.5 % (42.0-52.0); Hemoglobin 12.2 g/dL (11.7-16.6); Lymphocytes # 1.9 10^3/uL (0.8-4.8); Lymphocytes % 14.1 %; Mean Corpuscular HGB Conc 31.7 g/dL (30.0-36.0); Mean Corpuscular Hemoglobin 32.5 pg (28.0-34.0); Mean Corpuscular Volume 102.7 fl (80-94); Mean Platelet Volume 10.6 fL (7.4-10.4); Monocytes # 1.2 10^3/uL (0.2-0.9); Monocytes % 9.2 %; Neutrophils # 8.67 10^3/uL (1.8-7.7); Neutrophils % 65.8 %; Nucleated Red Blood Cells % 0.2 %; Platelet Count 333 10^3/cmm (130-400); Red Blood Count 3.75 10^6/uL (4.1-5.3); Red Cell Distribution Width 15.9 % (12.1-15.1); White Blood Count 13.2 10^3/uL (4.0-10.0)
[2022-01-15 15:53] LABS: Alanine Aminotransferase 9 U/L (0-41); Albumin Level 3.8 g/dL (3.5-5.2); Alkaline Phosphatase 79 IU/L (40-130); Aspartate Amino Transferase 16 U/L (0-40); Blood Urea Nitrogen 22 mg/dL (8-23); Calcium 9.1 mg/dL (8.5-10.5); Carbon Dioxide 24 mmol/L (22-29); Chloride 102 mmol/L (98-107); Globulin 3.1 g/dL (1.3-4.6); Glucose 100 mg/dL (65-115); Lactate Dehydrogenase 161 U/L (135-225); Osmolality Calculated 287 mOsm/kg (285-295); Sodium 137 mmol/L (136-145); Total Bilirubin 0.4 mg/dL (0.15-1.2); Total Protein 6.9 g/dL (6.6-8.7); Vitamin B12 470 pg/mL (232-1245)
== END 2022-01-15 14:24 | disposition home or self-care (01) ==
PROVIDERS: Internal Medicine Medical Oncology; PCP Family Medicine; Visit Provider Family Medicine
DX: C34.11 Malignant neoplasm of upper lobe, right bronchus or lung (principal); F09 Unspecified mental disorder due to known physiological condition
CPT/HCPCS: 36415; 80053; 82607; 83615; 84443; 85025

== ENCOUNTER 2022-01-21 09:28 | Oncology outpatient (recurring) (ONCR) | payer MEDICARE, SELFPAY ==
--- NOTE | 2022-01-15 15:17 | MR_ITS ---
WS: [id number] MRI BRAIN WITH AND WITHOUT CONTRAST HISTORY: small cell lung cancer staging COMPARISON: None available. TECHNIQUE: Multiplanar imaging performed through the brain with MultiHance 20 ml's IV. No acute infarcts are seen. Hernandez-white matter differentiation is well preserved. There are scattered T2 and FLAIR signal hyperintensities in the periventricular and subcortical white matter distribution . Very minimal small vessel ischemic disease. No prior infarct. No susceptibility artifacts or prior lacunar infarcts. Ventricles are very mildly prominent on the basis of atrophy. Clivus and pituitary gland are normal. Visualized posterior fossa and brainstem are also normal. Postcontrast images are negative for masses or vascular malformations. Dural venous sinuses are normal. Paranasal sinuses: Well aerated with no significant disease. Mastoid air cells: Normal. Calvarium and scalp: Normal. MR/MR head wo/w con [id number] IMPRESSION: 1. No evidence for metastatic disease to the brain. 2. Mild atrophy and mild small vessel ischemic disease. 3. No prior infarct. 4. No acute infarct.
[2022-01-15] MEDS: gadobenate dimeglumine 20 mL vial IV (16:36)
--- NOTE | 2022-01-16 17:01 | N.ONRAD NP_ITS ---
And although there could be radiation Oncology New Patient Visit Patient: Rohit Merritt MR#: [id number] : 1945 Age: 76 Sex: Male> Dictated by: Dr. Frederic Toscano Date of Service: 01/16/2022 Referring Physician(s) : Dr. Abdi Diagnosis: Lung, right, small cell carcinoma, stage limited Radiotherapy to date: Summary > No prior radiation therapy. Chief Complaint / History of Present Illness: Mr. Merritt is a 76-year-old man with a long history of COPD who presented with increasing cough, chest discomfort with cough, and periodic hemoptysis. A chest x-ray showed opacification in the right upper lobe. A CT was performed 12/14/2021 that showed a nodule associated with infiltrate in the right upper lobe as well as right hilar lymphadenopathy. Severe emphysema was also noted. He underwent a bronchoscopy 01/01/2022. He did not have an endobronchial lesion but a biopsy through the transbronchial route of a right hilar node showed small cell carcinoma. Staging was performed with a PET/CT. The patient has uptake in the right upper lobe in the area of the nodular infiltrate measuring 3.2 x 4 centimeters. Uptake was suspicious for malignancy. Also uptake on PET was noted in multiple right hilar nodes and also a right paratracheal lymph node. His scan was read as showing some uptake in the area of the diaphragm on the right posterior and lateral. The possibility of a pleural metastasis was mentioned. Overall Mr. Merritt has felt poorly recently. He has had increased fatigue for several months and his appetite is poor. He cannot give me an accurate estimate of recent weight loss. He states that he can only walk 15 to 25 feet before getting dyspnea. He has never used any supplemental oxygen. He has no new or acute bone pain. He does have headaches. Dr. Abdi ordered an MRI of the brain which has returned negative for metastatic disease. I reviewed the PET personally with Dr. Abdi. We believe that the area mentioned as a possible pleural metastasis may well be due to inflammatory changes. We feel that Mr. Merritt should be treated as limited stage small cell carcinoma and today he is referred for evaluation and preparation for treatment. He has a port scheduled for placement next week. Current Medications: Symbicort, fluticasone, furosemide, glipizide ER, losartan-HCTZ ,metformin, nitroglycerin, potassium Allergies: NKA Medical History: No history of collagen vascular disease. No previous radiation therapy. Cognitive dysfunction, COPD, degenerative arthritis, hypertension, sleep apnea, type 2 diabetes mellitus, depression. Surgical History: Ankle surgery, cholecystectomy Family History: Social History: Current Complaints / Review of Systems: . Vital Signs: Performed on 01/16/2022 3:23 PM BMI - 28.369 kg/m2 (high), Height - 71 in, Weight - 203.4 lbs, Temperature - 97.6 f, Pulse - 75 /min, Respiration - 18 /min, O2 Sat - 98 %, Pain - 0, Fatigue - 6 and BP - 121/ 64 mm(hg)(/low). Physical Exam: General: Alert, oriented, no acute distress neck: Supple. No masses. No cervical or supraclavicular lymphadenopathy. Lungs: Clear to percussion. On auscultation breath sounds are nearly silent. No rales rhonchi or wheezes noted. Heart rhythm regular. No murmur or gallop. Abdomen no distention. No organomegaly or mass or tenderness. Musculoskeletal no bone tenderness. Performance Status: ECOG 2 Pathology: Lung, small cell carcinoma Lab: Imaging: See HPI Impression: Limited stage small cell carcinoma. Mr. Merritt is a candidate for concomitant chemotherapy and radiation. He does have significantly symptomatic COPD. I told him using radiation could result in oxygen dependence. However I told him that his COPD alone or in combination with the cancer could also result in permanent oxygen dependence. Dr. Chris Toscano His cancer is in the right hemithorax and so major injury to the heart is very unlikely. He wishes to proceed with treatment as recommended. We will schedule simulation. The patient's asked about medication for depression. I recommended they talk to his family physician about that. <<Signature on File>> Time spent with patient: CPT Code: CPT Code:
--- NOTE | 2022-01-21 | CT_ITS ---
Radiation Therapy Planning CT images; total exam DLP: 720.47 mGy-cm MTDD
== END 2022-01-27 23:59 | disposition home or self-care (01) ==
PROVIDERS: PCP Family Medicine; Visit Provider Specialist
DX: Z51.0 Encounter for antineoplastic radiation therapy (principal); C34.11 Malignant neoplasm of upper lobe, right bronchus or lung; J44.9 Chronic obstructive pulmonary disease, unspecified; G47.33 Obstructive sleep apnea (adult) (pediatric); F32.A Depression, unspecified
CPT/HCPCS: 36415; 70553; 77290; 77300; 77301; 77334; 77338; 77470; 80053; 82607; 83615; 84443; 85025; 99204; 99205; A9577

== ENCOUNTER → 2022-01-22 10:41 | Outpatient (BNVA) | payer MEDICARE, SELFPAY | PROVIDERS: PCP Family Medicine; Referring Provider Internal Medicine Medical Oncology; Visit Provider Surgery | DX: C34.11 Malignant neoplasm of upper lobe, right bronchus or lung (principal); Z95.828 Presence of other vascular implants and grafts ==

== ENCOUNTER 2022-01-24 08:32 | Day surgery (SDC) | payer MEDICARE, SELFPAY ==
[2022-01-23 14:22] VITALS: BMI 14.5
--- NOTE | 2022-01-24 | SCC_ITS ---
Procedure done: Placement of PowerPort in the left subclavian vein Fluoroscopic guided interpretation for placement of catheter 32 seconds of fluoroscopic guidance, for a cumulative dose of 5.09 mGy, was provided to Dr. Coley by the radiology department. C-arm images of the chest were saved for the patient's permanent record. [facility]
[2022-01-24 08:56] VITALS: BP 144/98; PULSE 89; RESP 18; TEMP 36.7; O2SAT 98
--- NOTE | 2022-01-24 09:21 | P.ANESASSM_ITS ---
Pre-Anesthetic Assessment Height/Weight: Height 1.8 m Weight 47.174 kg Temp Pulse Resp BP Pulse Ox O2 Del Method 98.0 F 89 18 144/98 98 01/24/22 08:56 01/24/22 08:56 01/24/22 08:56 01/24/22 08:56 01/24/22 08:56 01/24/22 08:56 Preop Diagnosis: Lung cancer Operation Date: 01/24/22 10:15 Proposed Procedures p Portacath Placement 75080,C34.11(Not Applicable) - Clifton Coley MD Familial anesthetic complications: none Was Beta Esequiel taken within 24 hours: N/A Was Clonidine taken within 24 hours: N/A Last intake: 01/23/22 Social No alcohol and No tobacco Exam alert, oriented x 3 and regular rate & rhythm diminished breath sounds b/l Airway Submandibular: within normal limits Cervical ROM: within normal limits Mallampati: Class II Dentition: chipped Comments: Comments: Missing upper teeth and lower molars Pulmonary Chronic Obstructive Pulmonary Disease and Sleep Apnea Hilar lymphadenopathy SCC CV/HEM EGK 01/01/22 Interpretive Statements SINUS RHYTHM Compared to ECG 05/07/2019 09:06:54 No significant changes Electronically Signed On 01-01-2022 16:58:24 CDT by Bryon Conte M.D. [email or web address] [id number] None reported Hepatic None reported GI None reported Metabolic Diabetes Mellitus [facility] None reported Neuropsych None reported Anesthetic Plan ASA status: 3 Anesthesia: Anesthesia Evaluation, General and MAC Other: I discussed with the patient risks, goals, and benefits of MAC and general anesthesia. We discussed spectrum of MAC anesthesia including conversion to general as well as possibility of recall of intraoperative stimuli including discomfort/pain. Patient agrees to proceed with MAC. Risk of > 500 ml blood loss (7ml/kg in children): No Medications/Allergies Home Medications Medication Instructions Recorded Confirmed Last Taken Type budesonide-formoterol HFA 160 2 puff inhalation BID 07/05/19 01/24/22 01/16/22 History mcg-4.5 mcg/actuation aerosol inhaler (Symbicort) nitroglycerin 0.4 mg sublingual 0.4 mg sublingual Q5M PRN Chest 07/05/19 01/23/22 2 Months Ago History tablet (Nitrostat) Pain ~11/01/21 potassium chloride 10 mEq 10 meq PO DAILY 07/05/19 01/24/22 01/23/22 History tablet,extended release (Klor-Con) fluticasone propionate 50 1 spray intranasal BID 12/28/21 01/24/22 01/23/22 History mcg/actuation nasal spray,suspension (Allergy Relief (fluticasone)) furosemide 20 mg tablet 20 mg PO DAILY PRN edema 12/28/21 01/24/22 01/23/22 07:00 History glipizide 2.5 mg tablet, extended 2.5 mg PO DAILY 12/28/21 01/24/22 01/23/22 History release 24 hr losartan 100 1 tab PO DAILY 01/14/22 01/24/22 01/23/22 History mg-hydrochlorothiazide 12.5 mg tablet metformin 500 mg tablet See Rx Instructions PO DAILY 01/14/22 01/24/22 01/22/22 History Allergies Allergy/AdvReac Type Severity Reaction Status Date / Time No Known Allergies Allergy Verified 01/23/22 14:21 [facility] Anesthesia Medical History Bradycardia Cognitive dysfunction COPD (chronic obstructive pulmonary disease) Degenerative arthritis Hypertension Sleep apnea Type 2 diabetes mellitus Surgical History History of ankle surgery Open reduction for right ankle fracture History of bronchoscopy (01/01/22) Bronchoscopy with EBUS and FNA biopsy of lymph nodes History of cholecystectomy 2020 [place] Hx of total knee arthroplasty Right knee Family History Mother Hypertension Myocardial infarction CAD (coronary artery disease) Cancer Son Diabetes Grandmother Diabetes Other Hyperlipidemia Lung disease Denies family history of Clotting disorder Dementia Psychiatric illness Chronic kidney disease (CKD) Suicide Anesthesia complication Bleeding disorder Stroke Social History Smoking and tobacco status: former smoker Quit status (tobacco): has quit using tobacco Year quit tobacco: 1972 Former quit date comment: 1.5 ppd X 10 years Alcohol intake: current Data Anesthesia Cardiac Studies: No Data to Display
[2022-01-24 09:41] LABS: Glucose Point of Care 102 mg/dL (70-110)
--- NOTE | 2022-01-24 09:41 | SC_ITS ---
WS: [id number] C-ARM RADIOGRAPHS CHEST; 3 IMAGES HISTORY: Intraoperative imaging COMPARISON: None available. Intraoperative imaging during Port-A-Cath placement. Mediport ends just to the LEFT subclavian vein. SC/C-arm FL for CVA [id number] IMPRESSION: Intraoperative imaging during Mediport placement.
[2022-01-24 09:49] VITALS: BMI 28.4
[2022-01-24] MEDS: sodium chloride 0.9% 1,000 ML 30 ML IV (09:52)
[2022-01-24] MEDS: ceFAZolin 2,000 MG in sodium chloride 0.9% (plus) 50 ML 100 MG IV (09:57)
--- NOTE | 2022-01-24 10:00 | W.PM.OPSFHP ---
Same Day Surgery H&P Indication for Procedure/HPI DATE OF PROCEDURE: January 24, 2022 CHIEF COMPLAINT/INDICATIONFOR SURGICAL PROCEDURE: port placement PREOP DIAGNOSIS: Lung cancer PLANNED PROCEDURE: Operation Date: 01/24/22 10:15 Proposed Procedures p Portacath Placement 29983,C34.11(Not Applicable) - Clifton Coley MD Medications/Allergies* Home Medications Medication Instructions Recorded Confirmed Type budesonide-formoterol HFA 160 2 puff inhalation BID 07/05/19 01/24/22 History mcg-4.5 mcg/actuation aerosol inhaler (Symbicort) nitroglycerin 0.4 mg sublingual 0.4 mg sublingual Q5M PRN Chest 07/05/19 01/23/22 History tablet (Nitrostat) Pain potassium chloride 10 mEq 10 meq PO DAILY 07/05/19 01/24/22 History tablet,extended release (Klor-Con) fluticasone propionate 50 1 spray intranasal BID 12/28/21 01/24/22 History mcg/actuation nasal spray,suspension (Allergy Relief (fluticasone)) furosemide 20 mg tablet 20 mg PO DAILY PRN edema 12/28/21 01/24/22 History glipizide 2.5 mg tablet, extended 2.5 mg PO DAILY 12/28/21 01/24/22 History release 24 hr losartan 100 1 tab PO DAILY 01/14/22 01/24/22 History mg-hydrochlorothiazide 12.5 mg tablet metformin 500 mg tablet See Rx Instructions PO DAILY 01/14/22 01/24/22 History Allergies/Adverse Reactions Allergy/AdvReac Type Severity Reaction Status Date / Time No Known Allergies Allergy Verified 01/23/22 14:21 Current Medications: Generic Name Dose Route Start Last Admin Trade Name Freq PRN Reason Stop Dose Admin Sodium Chloride 1,000 mls @ 30 mls/hr 01/24/22 09:00 01/24/22 09:52 Sodium Chloride 0.9% IV 01/25/22 08:59 30 mls/hr .Q24H GIULIANO Administration Pertinent History/Comorbid Conditions* Medical History (Updated 01/15/22 @ 08:14 by Huseyin Abdi MD) Bradycardia Cognitive dysfunction COPD (chronic obstructive pulmonary disease) Degenerative arthritis Hypertension Sleep apnea Type 2 diabetes mellitus Surgical History (Updated 01/15/22 @ 05:50 by Huseyin Abdi MD) History of ankle surgery Open reduction for right ankle fracture History of bronchoscopy (01/01/22) Bronchoscopy with EBUS and FNA biopsy of lymph nodes History of cholecystectomy 2020 [place] R Sain[place], [place] Hx of total knee arthroplasty Right knee Family History (Updated 01/14/22 @ 14:52 by Alejandra Bond LPN) Diabetes Son Grandmother CAD (coronary artery disease) Mother Hyperlipidemia Myocardial infarction Mother Lung disease Cancer Mother Hypertension Mother Denies family history of Clotting disorder Dementia Psychiatric illness Chronic kidney disease (CKD) Suicide Anesthesia complication Bleeding disorder Stroke Social History Smoking and tobacco status: former smoker Quit status (tobacco): has quit using tobacco Year quit tobacco: 1972 Former quit date comment: 1.5 ppd X 10 years Alcohol intake: current Pertinent Exam Findings alert, oriented x 3 and regular rate & rhythm Recommendations Surgery/Procedure today Coding Level of Care Code 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
[2022-01-24] MEDS: lidocaine 2% INJ 20 mL INJECTION (10:14)
[2022-01-24] MEDS: heparin, porcine 1,000 unit/mL INJ 10 mL 6000 UNIT XX (10:18)
[2022-01-24] MEDS: sodium chloride 0.9% 100 mL Bag XX (10:20)
[2022-01-24 10:37] VITALS: BP 134/91; PULSE 74; RESP 21; TEMP 36.8; O2SAT 100
[2022-01-24 10:42] VITALS: BP 143/104; PULSE 75; RESP 18; O2SAT 100
[2022-01-24 10:46] VITALS: BP 157/82; PULSE 76; RESP 19; TEMP 36.6; O2SAT 100
[2022-01-24 11:32] VITALS: BP 162/92; PULSE 76; RESP 16; TEMP 36.8; O2SAT 98
[2022-01-24 11:43] VITALS: BP 153/88; PULSE 85; RESP 16; O2SAT 94
--- NOTE | 2022-01-24 11:52 | PM.OP ---
Operative Report Date of procedure: January 24, 2022 Pre-op diagnosis: Right lung cancer requiring central venous access for chemotherapy Post-op diagnosis: same Procedure done: Placement of PowerPort in the left subclavian vein Fluoroscopic guided interpretation for placement of catheter Pathology: none sent Surgeon: Clifton Coley Anesthesia: General Condition: stable Disposition: PACU Procedure: The patient was taken to the Operating Room and the chest and neck bilaterally were prepped and draped in a sterile manner after the antibiotic had been administered and shoulder rolls had been placed. A total of 10 mL of 1% lidocaine with 0.5% Marcaine was infiltrated under the clavicle on the left side at the site of the planned entry into the subclavian vein. An introducer needle was then used to access the subclavian vein under the clavicle and after withdrawing blood syringe was removed and a guidewire passed under fluoroscopy into the superior vena cava. The site of the planned port was then marked on the chest and a 15 blade was used to make a 3 cm skin incision this was extended into the subcutaneous tissue using electrocautery and a subcutaneous pocket over the pectoralis fascia was created 2-0 Vicryl suture was used to suture the port to the pectoral fascia in the pocket on 3 sides. The catheter, after having been flushed with hep saline, was attached to the tunneler and a tunnel created between the port site and the subclavian vein entry site. Under fluoroscopy the dilator sheath was passed over the guidewire into the proximal superior vena cava. The inner dilator was removed and the sheath left behind and~ the catheter was introduced through the peel-away sheath with the tip in the superior vena cava. The peel-away sheath was removed. The proximal end of the catheter was cut to the right size and was attached to the port. Using a Cosby needle the port was accessed, it withdrew blood easily and flushed easily. A final 5cc of heparin was used to flush the PowerPort. The subcutaneous tissue was approximated using interrupted 3-0 Vicryl sutures and the skin at the introducer site and the port site was closed using subcuticular running 4-0 Monocryl sutures. Surgical glue was applied and the patient was stable throughout the procedure. Fluoroscopic guidance and interpretation was performed for introduction of the guidewire in the left subclavian vein, passage of dilator and placement of catheter tip in the distal superior vena cava.
--- NOTE | 2022-01-24 12:54 | ANE.PACU2 ---
Inpatient post-anesthesia follow up: Airway intact: Yes Vital signs: Temperature 98.3 F Pulse Rate 85 Respiratory Rate 16 Blood Pressure 153/88 Pulse Oximetry 94 Oxygen Delivery Me thod Room Air Oxygen Flow Rate Fraction of Inspir ed Oxygen Hydration adequate: Yes Nausea and vomiting: No Pain level: 1 Mental status: Baseline
== END 2022-01-24 11:57 | disposition home or self-care (01) ==
PROVIDERS: PCP Family Medicine; Visit Provider Surgery
PROC: (CPT 36561; principal; 2022-01-24 09:55)
DX: C34.11 Malignant neoplasm of upper lobe, right bronchus or lung (principal); J44.9 Chronic obstructive pulmonary disease, unspecified; I10 Essential (primary) hypertension; G47.30 Sleep apnea, unspecified; E11.9 Type 2 diabetes mellitus without complications; Z87.891 Personal history of nicotine dependence; Z79.84 Long term (current) use of oral hypoglycemic drugs; M19.90 Unspecified osteoarthritis, unspecified site
CPT/HCPCS: 36561; 36416; 77001; 82962; C1788; J1644; J2704; J3010; J3490; J7030

== ENCOUNTER → 2022-01-28 08:56 | Outpatient (BNVA) | payer MEDICARE, SELFPAY | PROVIDERS: PCP Family Medicine; Visit Provider Internal Medicine Critical Care Medicine | DX: J44.9 Chronic obstructive pulmonary disease, unspecified (principal); C34.90 Malignant neoplasm of unspecified part of unspecified bronchus or lung; Z87.891 Personal history of nicotine dependence | CPT/HCPCS: 99214 ==

== ENCOUNTER 2022-02-27 10:00 | Oncology outpatient (recurring) (ONCR) | payer MEDICARE, SELFPAY ==
[2022-01-30 10:37] LABS: Basophils # 0.1 10^3/uL (0.0-0.1); Eosinophils % 10.1 %; Hematocrit 39.8 % (42.0-52.0); Hemoglobin 12.8 g/dL (11.7-16.6); Lymphocytes # 1.9 10^3/uL (0.8-4.8); Lymphocytes % 19.1 %; Mean Corpuscular HGB Conc 32.2 g/dL (30.0-36.0); Mean Corpuscular Hemoglobin 33.2 pg (28.0-34.0); Mean Corpuscular Volume 103.1 fl (80-94); Mean Platelet Volume 10.7 fL (7.4-10.4); Monocytes # 0.6 10^3/uL (0.2-0.9); Monocytes % 5.6 %; Neutrophils # 6.36 10^3/uL (1.8-7.7); Nucleated Red Blood Cells % 0 %; Platelet Count 292 10^3/cmm (130-400); Red Blood Count 3.86 10^6/uL (4.1-5.3); Red Cell Distribution Width 15.9 % (12.1-15.1); White Blood Count 9.9 10^3/uL (4.0-10.0)
[2022-01-30 10:58] LABS: Alanine Aminotransferase 8 U/L (0-41); Albumin Level 3.7 g/dL (3.5-5.2); Alkaline Phosphatase 80 IU/L (40-130); Anion Gap 14.2 (5-19); Aspartate Amino Transferase 19 U/L (0-40); Blood Urea Nitrogen 25 mg/dL (8-23); Carbon Dioxide 26 mmol/L (22-29); Chloride 103 mmol/L (98-107); Globulin 2.9 g/dL (1.3-4.6); Glucose 193 mg/dL (65-115); Osmolality Calculated 298 mOsm/kg (285-295); Potassium 4.2 mmol/L (3.5-5.1); Sodium 139 mmol/L (136-145); Total Bilirubin 0.6 mg/dL (0.15-1.2); Total Protein 6.6 g/dL (6.6-8.7)
[2022-01-30] MEDS: sodium chloride 0.9% 250 ML 75 ML IV (12:21)
[2022-01-30] MEDS: ondansetron 2 mg/ML SDV 2 mL 8 MG IVP (12:22)
[2022-01-30] MEDS: famotidine 20 mg/2 mL INJ IVP (12:24)
[2022-01-30] MEDS: OLANZapine 5 mg TABLET PO (12:25)
[2022-01-30] MEDS: diphenhydrAMINE 50 mg/mL SDV 1mL 25 MG IVP (12:25)
[2022-01-30] MEDS: fosaprepitant 150 MG in sodium chloride 0.9% 150 ML 300 MG IV (12:40)
[2022-01-30 15:35] VITALS: BP 128/68; PULSE 55; RESP 16; TEMP 35.9; O2SAT 98
[2022-01-31] MEDS: sodium chloride 0.9% 250 ML 100 ML IV (10:13)
[2022-01-31] MEDS: ondansetron 2 mg/ML SDV 2 mL 8 MG IVP (10:14)
[2022-02-01] MEDS: sodium chloride 0.9% 250 ML 100 ML IV (08:17)
[2022-02-01] MEDS: palonosetron 0.25 mg/5 mL SDV IVP (08:20)
[2022-02-01 09:59] VITALS: BP 133/72; PULSE 64; TEMP 37.1; O2SAT 99
--- NOTE | 2022-02-05 14:15 | ONCRAD TMN_ITS ---
Radiation Oncology Treatment Management Note Patient Name: Rohit Merritt Date of : 1945 Date of Service: 02/05/2022 Attending Physician: Khadar Villeda M.D. 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 The patient has received 8 Gy of a prescribed 60 Hernandez with an intensity modulated radiotherapy plan utilizing a step and shoot treatment technique. He has been prescribed carboplatin (AUC 5) and etoposide (100 mg/m???) every three weeks. Upon review of systems, he denied new pulmonary symptoms. On physical examination, the patient weighed 246 lbs. His temperature was 96.6 ???F with a blood pressure of 137/72 mmHg. The pulse was 74 bpm and his respiratory rate was 20. Oxygen saturation while breathing room air was 93%. Bilateral decreased breath sounds were auscultated. There was no erythema within the treatment . Continue thoracic radiotherapy as prescribed. Signed by: Dr. Khadar Villeda 02/05/2022 2:13:59 PM
[2022-02-06 09:10] LABS: Basophils % 0.7 %; Eosinophils # 0.1 10^3/uL (0.0-0.8); Eosinophils % 8.6 %; Hematocrit 33.3 % (42.0-52.0); Hemoglobin 11.1 g/dL (11.7-16.6); Lymphocytes # 0.5 10^3/uL (0.8-4.8); Lymphocytes % 35.5 %; Mean Corpuscular HGB Conc 33.3 g/dL (30.0-36.0); Mean Corpuscular Hemoglobin 33.5 pg (28.0-34.0); Mean Corpuscular Volume 100.6 fl (80-94); Mean Platelet Volume 10.7 fL (7.4-10.4); Monocytes % 1.3 %; Neutrophils % 43.4 %; Nucleated Red Blood Cells % 0 %; Platelet Count 133 10^3/cmm (130-400); Red Blood Count 3.31 10^6/uL (4.1-5.3); Red Cell Distribution Width 15.7 % (12.1-15.1); White Blood Count 1.5 10^3/uL (4.0-10.0)
[2022-02-06 09:30] LABS: Alanine Aminotransferase 20 U/L (0-41); Albumin Level 3.5 g/dL (3.5-5.2); Alkaline Phosphatase 68 IU/L (40-130); Anion Gap 14.3 (5-19); Aspartate Amino Transferase 28 U/L (0-40); Blood Urea Nitrogen 30 mg/dL (8-23); Calcium 8.7 mg/dL (8.5-10.5); Carbon Dioxide 27 mmol/L (22-29); Chloride 105 mmol/L (98-107); Globulin 2.9 g/dL (1.3-4.6); Glucose 109 mg/dL (65-115); Osmolality Calculated 301 mOsm/kg (285-295); Potassium 4.3 mmol/L (3.5-5.1); Sodium 142 mmol/L (136-145); Total Bilirubin 0.3 mg/dL (0.15-1.2); Total Protein 6.4 g/dL (6.6-8.7)
[2022-02-06 10:08] LABS: Slide Review Slide Review Perform
[2022-02-06 10:10] LABS: Neutrophils # 0.66 10^3/uL (1.8-7.7)
[2022-02-06] MEDS: sodium chloride 0.9% 500 ML 999 ML IV (10:52)
[2022-02-07 13:19] VITALS: BP 126/80; PULSE 94; RESP 20; TEMP 36.2; O2SAT 99
[2022-02-08 10:50] VITALS: BP 108/61; PULSE 97; RESP 18; TEMP 36.3; O2SAT 98
--- NOTE | 2022-02-12 14:07 | ONCRAD TMN_ITS ---
Radiation Oncology Treatment Management Note Patient Name: Rohit Merritt Date of : 1945 Date of Service: 02/12/2022 Attending Physician: Khadar Villeda M.D. 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 The patient has received 18 Gy of a prescribed 60 Hernandez with an intensity modulated radiotherapy plan utilizing a step and shoot treatment technique. He has been prescribed carboplatin (AUC 5) and etoposide (100 mg/m???) every three weeks. Upon review of systems, he reported dizziness. On physical examination, the patient weighed 195 lbs. His temperature was 97 ???F and the blood pressure was 91/61 mmHg. The pulse was 101 bpm and his respiratory rate was 20. Oxygen saturation while breathing room air was 98%. Bilateral decreased breath sounds were auscultated. There was no erythema within the treatment . Continue thoracic radiotherapy as planned. I will request IVFs and obtain orthostatic blood pressure testing. Signed by: Dr. Khadar Villeda 02/12/2022 2:05:39 PM
[2022-02-12 14:33] LABS: Basophils % 0.7 %; Hematocrit 26.1 % (42.0-52.0); Hemoglobin 8.9 g/dL (11.7-16.6); Lymphocytes # 0.5 10^3/uL (0.8-4.8); Mean Corpuscular HGB Conc 34.1 g/dL (30.0-36.0); Mean Corpuscular Hemoglobin 33.3 pg (28.0-34.0); Mean Corpuscular Volume 97.8 fl (80-94); Monocytes # 0.3 10^3/uL (0.2-0.9); Monocytes % 24.8 %; Neutrophils % 36.6 %; Nucleated Red Blood Cells % 0 %; Red Blood Count 2.67 10^6/uL (4.1-5.3); Red Cell Distribution Width 14.4 % (12.1-15.1); White Blood Count 1.4 10^3/uL (4.0-10.0)
[2022-02-12] MEDS: sodium chloride 0.9% 1,000 ML 999 ML IV (14:34)
[2022-02-12 15:17] LABS: Platelet Count 15 10^3/cmm (130-400)
[2022-02-12 15:18] LABS: Slide Review Slide Review Perform
[2022-02-12 15:20] LABS: Alanine Aminotransferase 12 U/L (0-41); Albumin Level 3.4 g/dL (3.5-5.2); Alkaline Phosphatase 69 U/L (40-130); Anion Gap 18.5 (5-19); Aspartate Amino Transferase 16 U/L (0-40); Blood Urea Nitrogen 44 mg/dL (8-23); Calcium 8.6 mg/dL (8.5-10.5); Carbon Dioxide 22 mmol/L (22-29); Chloride 99 mmol/L (98-107); Globulin 3.5 g/dL (1.3-4.6); Glucose 142 mg/dL (65-115); Osmolality Calculated 296 mOsm/kg (285-295); Potassium 3.5 mmol/L (3.5-5.1); Sodium 136 mmol/L (136-145); Total Bilirubin 0.3 mg/dL (0.15-1.2); Total Protein 6.9 g/dL (6.6-8.7)
[2022-02-12 16:09] VITALS: BP 97/56; PULSE 80; RESP 18; TEMP 36.1; O2SAT 97
[2022-02-13] MEDS: diphenhydrAMINE 25 mg Capsule PO (14:52)
[2022-02-13] MEDS: acetaminophen 325 mg Tablet 650 MG PO (14:53)
[2022-02-13 15:33] VITALS: BP 85/53; PULSE 100; RESP 18; TEMP 36.6; O2SAT 97
[2022-02-13 15:35] VITALS: BP 85/53; PULSE 100; RESP 18; TEMP 35.9; O2SAT 97
[2022-02-13 15:40] VITALS: BP 92/56; PULSE 100; RESP 18; TEMP 36.1; O2SAT 98
--- NOTE | 2022-02-19 13:58 | ONCRAD TMN_ITS ---
Radiation Oncology Treatment Management Note Patient Name: Rohit Merritt Date of : 1945 Date of Service: 02/19/2022 Attending Physician: Khadar Villeda M.D. 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 The patient has received 28 Gy of a prescribed 60 Hernandez with an intensity modulated radiotherapy plan utilizing a step and shoot treatment technique. He has been prescribed carboplatin (AUC 5) and etoposide (100 mg/m???) every three weeks. Upon review of systems, he continues to complain of intermittent dizziness. On physical examination, the patient weighed 196 lbs. His temperature was 97.7 ???F and the blood pressure was 105/72 mmHg. The pulse was 96 bpm and his respiratory rate was 18. Oxygen saturation while breathing room air was 96%. Bilateral decreased breath sounds were present. There was no erythema within the treatment . Continue thoracic radiotherapy as prescribed. Hold antihypertensive medications. Signed by: Dr. Khadar Villeda 02/19/2022 1:57:51 PM
[2022-02-20 09:56] LABS: Basophils # 0.1 10^3/uL (0.0-0.1); Basophils % 0.5 %; Hematocrit 24.8 % (42.0-52.0); Hemoglobin 8.4 g/dL (11.7-16.6); Lymphocytes # 0.7 10^3/uL (0.8-4.8); Mean Corpuscular HGB Conc 33.9 g/dL (30.0-36.0); Mean Corpuscular Hemoglobin 32.7 pg (28.0-34.0); Mean Corpuscular Volume 96.5 fl (80-94); Mean Platelet Volume 10.2 fL (7.4-10.4); Monocytes # 1.8 10^3/uL (0.2-0.9); Monocytes % 17.3 %; Neutrophils # 7.55 10^3/uL (1.8-7.7); Neutrophils % 71.6 %; Nucleated Red Blood Cells % 0.2 %; Platelet Count 431 10^3/cmm (130-400); Red Blood Count 2.57 10^6/uL (4.1-5.3); Red Cell Distribution Width 14.9 % (12.1-15.1); White Blood Count 10.6 10^3/uL (4.0-10.0)
[2022-02-20 10:10] LABS: Alanine Aminotransferase 7 U/L (0-41); Albumin Level 3.4 g/dL (3.5-5.2); Alkaline Phosphatase 99 U/L (40-130); Anion Gap 16.2 (5-19); Aspartate Amino Transferase 18 U/L (0-40); Blood Urea Nitrogen 27 mg/dL (8-23); Calcium 8.4 mg/dL (8.5-10.5); Carbon Dioxide 25 mmol/L (22-29); Chloride 100 mmol/L (98-107); Globulin 3.7 g/dL (1.3-4.6); Glucose 103 mg/dL (65-115); Osmolality Calculated 289 mOsm/kg (285-295); Potassium 4.2 mmol/L (3.5-5.1); Sodium 137 mmol/L (136-145); Total Bilirubin 0.2 mg/dL (0.15-1.2); Total Protein 7.1 g/dL (6.6-8.7)
[2022-02-20] MEDS: ondansetron 2 mg/ML SDV 2 mL 8 MG IVP (11:26)
[2022-02-20] MEDS: sodium chloride 0.9% 250 ML 100 ML IV (11:26)
[2022-02-20] MEDS: OLANZapine 5 mg TABLET PO (11:27)
[2022-02-20] MEDS: famotidine 20 mg/2 mL INJ IVP (11:27)
[2022-02-20] MEDS: diphenhydrAMINE 50 mg/mL SDV 1mL 25 MG IVP (11:27)
[2022-02-20] MEDS: fosaprepitant 150 MG in sodium chloride 0.9% 150 ML 300 MG IV (11:34)
[2022-02-20] MEDS: CARBOPLATIN IV (12:25)
[2022-02-20] MEDS: SODIUM CHLORIDE 0.9% IV (12:25)
[2022-02-20 14:45] VITALS: BP 125/70; PULSE 91; TEMP 36.2; O2SAT 99
[2022-02-21] MEDS: sodium chloride 0.9% 250 ML 100 ML IV (09:07)
[2022-02-21] MEDS: ondansetron 2 mg/ML SDV 2 mL 8 MG IVP (09:08)
[2022-02-21 11:25] VITALS: BP 125/66; PULSE 74; TEMP 36; O2SAT 99
[2022-02-22] MEDS: sodium chloride 0.9% 250 ML 100 ML IV (09:25)
[2022-02-22] MEDS: palonosetron 0.25 mg/5 mL SDV IVP (09:25)
[2022-02-22 10:47] VITALS: BP 124/68; PULSE 57; TEMP 36.3; O2SAT 98
--- NOTE | 2022-02-26 14:13 | ONCRAD TMN_ITS ---
Radiation Oncology Weekly Treatment Management Patient: René Bee MR#: [id number] : 1945 Attending Physician: Dr. Frederic Toscano Date of Service: 02/26/2022 Referring Physician(s) : Dr. Huseyin Abdi Diagnosis: C34.2 - Malignant neoplasm of middle lobe, bronchus or lung, Diagnosed 01/01/2022 (Active) Radiotherapy to date: Course: RT Lung, Treatment Site: RT [id number], Ref. ID: [id number], Energy: 6X, Dose/Fx (cGy): 200, #Fx: 30, Dose Correction (cGy): 0, Total Dose (cGy): 3,600, Start Date: 01/30/2022, Elapsed Days: 27 Reason for visit: The patient is being seen today as part of their regularly scheduled weekly on treatment visits to assess for acute toxicities from radiotherapy. Review of Systems: He has received 18 of 30 fractions. He has moderate fatigue. He has decreased appetite and early satiety. Weight is stable. He has developed mild swelling of the left hand. No swelling of the arm that he is aware of. His port is on the left, and he states that it is painful to access. He is scheduled for blood work today. He had his second cycle of carboplatin and etoposide on 02/20/2022. He has no nausea. His breathing is stable but poor. Pulse ox was 96% last week and is 99% today. No troublesome cough, sputum production, or hemoptysis. No unusual pain. Vital Signs: Performed on 02/26/2022 1:23 PM BMI - 27.56 kg/m2 (high), Height - 71 in, Weight - 197.6 lbs, Temperature - 97.0 f, Pulse - 79 /min, Respiration - 18 /min, O2 Sat - 99 %, Pain - 0, Fatigue - 3 and BP - 118/ 56 mm(hg)(/low). Physical Exam: Alert, oriented, no acute distress. He appears chronically ill. He has no lymphadenopathy in the neck. No distended neck veins. Lung exam reveals the breath sounds to be greatly diminished but clear without rales rhonchi or wheezes. Heart rhythm regular. The right hand and arm have no swelling. No right axillary nodes. The left hand is mildly swollen. No swelling detected above the hand. No tenderness along the course of the vasculature. No axillary nodes. No distention of veins in the neck and no lymphadenopathy in the supraclavicular area or neck. Imaging: Radiation therapy imaging related to accurate target localization (i.e. KV, MV and CBCT) was reviewed. Appropriate changes, if any, were made to ensure treatment accuracy. Plan: Continue radiation per plan. He is scheduled for blood work today and our therapist is notifying the chemotherapy staff of the pain with access of the port, and that he has mild left hand swelling. We discussed his nutrition. Discussed eating small amounts through the day. Signed by: Dr. Chris Toscano 02/26/2022 2:12:58 PM
[2022-02-26 14:20] LABS: Basophils % 3.1 %; Hemoglobin 6.7 g/dL (11.7-16.6); Lymphocytes # 0.2 10^3/uL (0.8-4.8); Lymphocytes % 17.6 %; Mean Corpuscular HGB Conc 32.5 g/dL (30.0-36.0); Mean Corpuscular Hemoglobin 32.8 pg (28.0-34.0); Mean Platelet Volume 9.2 fL (7.4-10.4); Monocytes % 1.5 %; Neutrophils % 65.6 %; Nucleated Red Blood Cells % 0 %; Platelet Count 333 10^3/cmm (130-400); Red Blood Count 2.04 10^6/uL (4.1-5.3); Red Cell Distribution Width 15.4 % (12.1-15.1); White Blood Count 1.3 10^3/uL (4.0-10.0)
[2022-02-26 14:24] VITALS: BP 118/56; PULSE 79; RESP 18; TEMP 36.4; O2SAT 99
[2022-02-26 14:37] LABS: Hematocrit 20.6 % (42.0-52.0)
[2022-02-26 14:38] LABS: Neutrophils # 0.86 10^3/uL (1.8-7.7)
[2022-02-26 14:48] LABS: Alanine Aminotransferase 6 U/L (0-41); Albumin Level 2.9 g/dL (3.5-5.2); Alkaline Phosphatase 61 U/L (40-130); Anion Gap 12.6 (5-19); Aspartate Amino Transferase 15 U/L (0-40); Blood Urea Nitrogen 22 mg/dL (8-23); Calcium 8.4 mg/dL (8.5-10.5); Carbon Dioxide 27 mmol/L (22-29); Chloride 103 mmol/L (98-107); Globulin 3.2 g/dL (1.3-4.6); Glucose 97 mg/dL (65-115); Osmolality Calculated 289 mOsm/kg (285-295); Potassium 4.6 mmol/L (3.5-5.1); Sodium 138 mmol/L (136-145); Total Bilirubin 0.3 mg/dL (0.15-1.2); Total Protein 6.1 g/dL (6.6-8.7)
[2022-02-27] VITALS (10 sets, daily range): BP systolic 120–135; BP diastolic 63–74; PULSE 53–84; RESP 16–20; TEMP 36.1–36.4; O2SAT 97–98
[2022-02-27] MEDS: acetaminophen 325 mg Tablet 650 MG PO (11:32)
[2022-02-27] MEDS: sodium chloride 0.9% 250 ML IV (11:33)
[2022-02-27] MEDS: diphenhydrAMINE 25 mg Capsule PO (11:33)
[2022-02-27] MEDS: FUROsemide 10 mg/mL SDV 2mL 20 MG IVP (13:17)
== END 2022-02-27 23:59 | disposition home or self-care (01) ==
PROVIDERS: Nurse Practitioner; Nurse Practitioner Family; PCP Family Medicine; Visit Provider Specialist
DX: C34.11 Malignant neoplasm of upper lobe, right bronchus or lung (principal)
CPT/HCPCS: 36430; 36591; 77014; 77336; 77386; 80053; 85025; 86850; 86900; 86920; 96365; 96367; 96372; 96374; 96375; 96401; 96413; 96417; 99214; 99215; J1100; J1200; J1453; J1940; J2405; J2469; J3490; J7030; J7040; J7050; J7060; J9045; J9181; P9040; Q5101

== ENCOUNTER 2022-03-27 14:30 | Oncology outpatient (recurring) (ONCR) | payer MEDICARE, SELFPAY ==
--- NOTE | 2022-03-05 13:48 | ONCRAD TMN_ITS ---
Radiation Oncology Treatment Management Note Patient Name: Rohit Merritt Date of : 1945 Date of Service: 03/05/2022 Attending Physician: Khadar Villeda M.D. 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 The patient has received 42 Gy of a prescribed 60 Hernandez with an intensity modulated radiotherapy plan utilizing a step and shoot treatment technique. He has been prescribed carboplatin (AUC 5) and etoposide (100 mg/m???) every three weeks. Upon review of systems, he reported odynophagia. On physical examination, the patient weighed 191 lbs. His temperature was 97.6 ???F and the blood pressure was 139/61 mmHg. The pulse was 100 bpm and his respiratory rate was 18. Oxygen saturation while breathing room air was 99%. Bilateral decreased breath sounds were noted. There was no erythema within the treatment . Continue thoracic radiotherapy as planned. I will prescribe oxycodone elixir for his complaint of odynophagia. Signed by: Dr. Khadar Villeda 03/05/2022 1:47:04 PM
[2022-03-05 14:24] LABS: Hematocrit 21.3 % (42.0-52.0); Hemoglobin 7.1 g/dL (11.7-16.6); Mean Corpuscular HGB Conc 33.3 g/dL (30.0-36.0); Mean Platelet Volume 10.7 fL (7.4-10.4); Red Blood Count 2.29 10^6/uL (4.1-5.3); Red Cell Distribution Width 14.4 % (12.1-15.1)
[2022-03-05 14:40] LABS: Slide Review Slide Review Perform
[2022-03-05 14:42] LABS: White Blood Count 0.9 10^3/uL (4.0-10.0)
[2022-03-05 14:43] LABS: Platelet Count 10 10^3/cmm (130-400)
[2022-03-05 14:44] LABS: Alanine Aminotransferase 6 U/L (0-41); Albumin Level 3.3 g/dL (3.5-5.2); Alkaline Phosphatase 70 U/L (40-130); Anion Gap 12.5 (5-19); Aspartate Amino Transferase 11 U/L (0-40); Blood Urea Nitrogen 23 mg/dL (8-23); Calcium 8.6 mg/dL (8.5-10.5); Carbon Dioxide 26 mmol/L (22-29); Chloride 101 mmol/L (98-107); Globulin 3.4 g/dL (1.3-4.6); Glucose 124 mg/dL (65-115); Osmolality Calculated 287 mOsm/kg (285-295); Potassium 3.5 mmol/L (3.5-5.1); Sodium 136 mmol/L (136-145); Total Bilirubin 0.5 mg/dL (0.15-1.2); Total Protein 6.7 g/dL (6.6-8.7)
[2022-03-05 15:03] LABS: Absolute Segmented Neutrophil 0.2 10/cmm (1.6-7.1); Eosinophils 2 %; Lymphocytes 24 %; Lymphocytes Absolute 0.6 10^3/cmm (1.2-3.4); Platelet Estimate Decreased (Normal); Segmented Neutrophils 26 %; Total Cells Counted 100 (0-100)
[2022-03-05 15:04] LABS: Absolute Neutrophil 0.2 10^3/cmm (1.4-6.5)
[2022-03-06] VITALS (9 sets, daily range): BP systolic 122–145; BP diastolic 62–90; PULSE 60–72; RESP 18; TEMP 35.8–36.1; O2SAT 96–99
[2022-03-06] MEDS: acetaminophen 325 mg Tablet 650 MG PO (09:39)
[2022-03-06] MEDS: diphenhydrAMINE 25 mg Capsule PO (09:40)
[2022-03-06] MEDS: FUROsemide 10 mg/mL SDV 2mL 20 MG IVP (12:10)
[2022-03-06] MEDS: sodium chloride 0.9% 250 ML 75 ML IV (15:37)
[2022-03-12 10:40] LABS: Basophils % 0.3 %; Eosinophils % 0.3 %; Hematocrit 26.7 % (42.0-52.0); Hemoglobin 8.8 g/dL (11.7-16.6); Lymphocytes # 0.4 10^3/uL (0.8-4.8); Lymphocytes % 9.1 %; Mean Corpuscular Hemoglobin 30.9 pg (28.0-34.0); Mean Corpuscular Volume 93.7 fl (80-94); Mean Platelet Volume 11.1 fL (7.4-10.4); Monocytes # 0.6 10^3/uL (0.2-0.9); Monocytes % 13.9 %; Neutrophils # 3.01 10^3/uL (1.8-7.7); Neutrophils % 75.9 %; Nucleated Red Blood Cells % 0 %; Platelet Count 89 10^3/cmm (130-400); Red Blood Count 2.85 10^6/uL (4.1-5.3); Red Cell Distribution Width 14.6 % (12.1-15.1)
--- NOTE | 2022-03-12 11:03 | ONCRAD TMN_ITS ---
Radiation Oncology Treatment Management Note Patient Name: Rohit Merritt Date of : 1945 Date of Service: 03/12/2022 Attending Physician: Khadar Villeda M.D. 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 The patient has received 52 Gy of a prescribed 60 Hernandez with an intensity modulated radiotherapy plan utilizing a step and shoot treatment technique. He has been prescribed carboplatin (AUC 5) and etoposide (100 mg/m???) every three weeks. Upon review of systems, he reported odynophagia. On physical examination, the patient weighed 190 lbs. His temperature was 97.8 ???F and the blood pressure was 147/64 mmHg. The pulse was 74 bpm and his respiratory rate was 16. Oxygen saturation while breathing room air was 98%. Decreased breath sounds were auscultated. Continue thoracic radiotherapy as prescribed. Signed by: Dr. Khadar Villeda 03/12/2022 11:02:02 AM
[2022-03-12 11:06] LABS: Alanine Aminotransferase 6 U/L (0-41); Albumin Level 3.1 g/dL (3.5-5.2); Alkaline Phosphatase 80 U/L (40-130); Anion Gap 10.6 (5-19); Aspartate Amino Transferase 14 U/L (0-40); Blood Urea Nitrogen 14 mg/dL (8-23); Calcium 8.5 mg/dL (8.5-10.5); Carbon Dioxide 30 mmol/L (22-29); Chloride 104 mmol/L (98-107); Globulin 3.4 g/dL (1.3-4.6); Glucose 117 mg/dL (65-115); Osmolality Calculated 294 mOsm/kg (285-295); Potassium 3.6 mmol/L (3.5-5.1); Sodium 141 mmol/L (136-145); Total Bilirubin 0.3 mg/dL (0.15-1.2); Total Protein 6.5 g/dL (6.6-8.7)
[2022-03-18 09:22] LABS: Basophils % 0.7 %; Eosinophils % 0.7 %; Hematocrit 26.2 % (42.0-52.0); Hemoglobin 8.3 g/dL (11.7-16.6); Lymphocytes # 0.4 10^3/uL (0.8-4.8); Lymphocytes % 8.7 %; Mean Corpuscular HGB Conc 31.7 g/dL (30.0-36.0); Mean Corpuscular Volume 97.8 fl (80-94); Mean Platelet Volume 9.9 fL (7.4-10.4); Monocytes # 0.7 10^3/uL (0.2-0.9); Neutrophils # 2.87 10^3/uL (1.8-7.7); Neutrophils % 71.7 %; Nucleated Red Blood Cells % 0 %; Platelet Count 212 10^3/cmm (130-400); Red Blood Count 2.68 10^6/uL (4.1-5.3)
[2022-03-18 09:54] LABS: Alanine Aminotransferase 6 U/L (0-41); Albumin Level 2.9 g/dL (3.5-5.2); Alkaline Phosphatase 102 U/L (40-130); Aspartate Amino Transferase 24 U/L (0-40); Blood Urea Nitrogen 15 mg/dL (8-23); Calcium 8.4 mg/dL (8.5-10.5); Carbon Dioxide 30 mmol/L (22-29); Chloride 107 mmol/L (98-107); Globulin 3.5 g/dL (1.3-4.6); Glucose 110 mg/dL (65-115); Osmolality Calculated 297 mOsm/kg (285-295); Sodium 143 mmol/L (136-145); Total Bilirubin 0.3 mg/dL (0.15-1.2); Total Protein 6.4 g/dL (6.6-8.7)
--- NOTE | 2022-03-18 11:00 | CT_ITS ---
WS: [id number] CT CHEST WITH INTRAVENOUS CONTRAST HISTORY: History of lung cancer. TECHNIQUE: Contiguous 5 mm axial imaging performed on the thorax. Coronal and sagittal reformats are submitted. All CT scans at [facility] use at least one of these dose optimization techniques: automated exposure control; mA and/or kV adjustment per patient size (includes targeted exams where dose is matched to clinical indication); or iterative reconstruction. CONTRAST: Omnipaque 350; 95 mL IV. DLP: 892.06 mGy.cm COMPARISON: 12/14/2021, 09/24/2019, PET/CT 01/05/2022 Lungs, pleura and central airway: Severe bullous emphysema. Bullous and bleb disease predominantly in the upper lobes. Recently described nodular opacifications in the RIGHT upper lobe has resolved sinc e the prior examination. This was positive on recent PET/CT. There is mild residual pleural thickenin g in the RIGHT upper lobe. There is a new small RIGHT pleural effusion. Diaphragmatic implant that wa s noted on a recent PET/CT measures 1.8 x 1.0 cm. Not significantly changed in size. Additional benig n scattered granulomata. Heart and pericardium: Normal size heart. No pericardial effusion. Mediastinum and radha: Significant decrease in size of the RIGHT hilar lymphadenopathy. Largest cluste r of lymph nodes now measures 1.4 x 1.5 cm as compared to 3.6 x 2.9 cm. No enlarging or new lymph nod es. Diffuse mild wall thickening of the esophagus. Vessels: Mild atherosclerosis aorta. Normal size pulmonary artery. Chest wall and lower neck: No soft tissue masses. Upper abdomen: Small hiatal hernia. No adrenal mass. No metastatic lesions within the liver. No adeno chip or ascites. Moderate amount of thrombus noted in the proximal SMA. There is greater than 50% st enosis of the SMA. Pancreas is fatty replaced. Osseous structures: Increase in thoracic kyphosis. No destructive bone lesions. CT/CT chest w con* [id number] IMPRESSION: 1. Near complete resolution of the PET/CT positive nodular opacification in th e RIGHT upper lobe. There is now only very minimal pleural thickening and tethe ring remaining. 2. Significant decrease in size of the RIGHT hilar lymphadenopathy since 2021. 3. Severe emphysema. 4. 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 5. New small RIGHT pleural effusion. 6. 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 Increasing p atient's risk for GI tract ischemia. 7. Negative adrenal glands.
[2022-03-18] MEDS: iohexol 350 mg/mL 100 mL Btl IV (12:04)
[2022-03-18] MEDS: sodium chloride 0.9% 250 ML 100 ML IV (12:52)
[2022-03-18] MEDS: ondansetron 2 mg/ML SDV 2 mL 8 MG IVP (12:53)
[2022-03-18] MEDS: OLANZapine 5 mg TABLET PO (12:53)
[2022-03-18] MEDS: famotidine 20 mg/2 mL INJ IVP (12:54)
[2022-03-18] MEDS: diphenhydrAMINE 50 mg/mL SDV 1mL 25 MG IVP (12:55)
[2022-03-18] MEDS: fosaprepitant 150 MG in sodium chloride 0.9% 150 ML 300 MG IV (13:16)
[2022-03-18] MEDS: etoposide 205 MG in sodium chloride 0.9%(non-DEHP) 500 ML 510.25 MG IV (14:08)
[2022-03-18] MEDS: CARBOplatin 550 MG in sodium chloride 0.9% 500 ML 555 MG IV (15:23)
[2022-03-18 16:29] VITALS: BP 153/76; PULSE 73; RESP 16; TEMP 36.2; O2SAT 93
[2022-03-19] MEDS: sodium chloride 0.9% 250 ML 100 ML IV (13:14)
[2022-03-19] MEDS: ondansetron 2 mg/ML SDV 2 mL 8 MG IVP (13:15)
[2022-03-19] MEDS: etoposide 205 MG in sodium chloride 0.9%(non-DEHP) 500 ML 510.25 MG IV (13:28)
[2022-03-19 14:52] VITALS: BP 125/62; PULSE 69; RESP 16; TEMP 36.2; O2SAT 98
[2022-03-20] MEDS: sodium chloride 0.9% 250 ML 100 ML IV (13:17)
[2022-03-20] MEDS: palonosetron 0.25 mg/5 mL SDV IVP (13:20)
[2022-03-20] MEDS: etoposide 205 MG in sodium chloride 0.9%(non-DEHP) 500 ML 510.25 MG IV (14:03)
[2022-03-20 15:10] VITALS: BP 144/74; PULSE 58; RESP 16; TEMP 36.2; O2SAT 99
[2022-03-25 11:28] LABS: Basophils % 1.6 %; Eosinophils % 2.4 %; Hematocrit 25.4 % (42.0-52.0); Hemoglobin 8.1 g/dL (11.7-16.6); Lymphocytes # 0.1 10^3/uL (0.8-4.8); Lymphocytes % 7.9 %; Mean Corpuscular HGB Conc 31.9 g/dL (30.0-36.0); Mean Corpuscular Hemoglobin 30.5 pg (28.0-34.0); Mean Corpuscular Volume 95.5 fl (80-94); Mean Platelet Volume 9.9 fL (7.4-10.4); Monocytes % 2.4 %; Nucleated Red Blood Cells % 0 %; Platelet Count 143 10^3/cmm (130-400); Red Blood Count 2.66 10^6/uL (4.1-5.3); Red Cell Distribution Width 16.8 % (12.1-15.1); White Blood Count 1.3 10^3/uL (4.0-10.0)
[2022-03-25 11:50] LABS: Alanine Aminotransferase 13 U/L (0-41); Albumin Level 3.3 g/dL (3.5-5.2); Alkaline Phosphatase 86 U/L (40-130); Anion Gap 14.8 (5-19); Aspartate Amino Transferase 24 U/L (0-40); Blood Urea Nitrogen 21 mg/dL (8-23); Calcium 8.7 mg/dL (8.5-10.5); Carbon Dioxide 27 mmol/L (22-29); Chloride 102 mmol/L (98-107); Globulin 3.6 g/dL (1.3-4.6); Glucose 128 mg/dL (65-115); Osmolality Calculated 295 mOsm/kg (285-295); Potassium 3.8 mmol/L (3.5-5.1); Sodium 140 mmol/L (136-145); Total Bilirubin 0.4 mg/dL (0.15-1.2); Total Protein 6.9 g/dL (6.6-8.7)
[2022-03-25 11:51] LABS: Neutrophils % 85.7 %
[2022-03-25 11:52] LABS: Neutrophils # 1.08 10^3/uL (1.8-7.7); Slide Review Slide Review Perform
[2022-03-25 12:22] VITALS: BP 133/79; PULSE 80; RESP 18; TEMP 36.1; O2SAT 98
[2022-03-26 09:20] VITALS: BP 124/74; PULSE 97; RESP 18; TEMP 36.2; O2SAT 98
[2022-03-27 14:37] VITALS: BP 133/82; PULSE 87; RESP 18; TEMP 36.3; O2SAT 98
== END 2022-03-29 23:59 | disposition home or self-care (01) ==
PROVIDERS: Nurse Practitioner Family; Absent Provider Radiology Radiation Oncology; PCP Family Medicine; Visit Provider Internal Medicine Medical Oncology
DX: Z79.899 Other long term (current) drug therapy (principal); Z53.9 Procedure and treatment not carried out, unspecified reason; C34.11 Malignant neoplasm of upper lobe, right bronchus or lung
CPT/HCPCS: 36430; 36591; 71260; 77014; 77336; 77386; 77427; 80053; 85007; 85025; 86850; 86900; 86920; 96367; 96372; 96374; 96375; 96413; 96417; 99215; J1100; J1200; J1453; J1940; J2405; J2469; J3490; J7030; J7040; J7050; J9045; J9181; P9037; P9040; Q5101

== ENCOUNTER 2022-03-27 23:43 | Inpatient (IN) | payer MEDICARE, SELFPAY ==
--- NOTE | 2022-03-27 23:49 | ECG_ITS ---
[facility] Test Date: 2022-03-28 Pat Name: Rohit Merritt Department: Room: Gender: Male Account Leader: : 1945 Requested By: Colette Maurice Order Number: [id number] Mazin MD: Eugenio Olson M.D. Measurements Intervals [place] Rate: 103 P: 268 [place]: 79 QRS: 47 QRSD: 92 T: 74 QT: 330 QTc: 434 Interpretive Statements Sinus TACHYCARDIA WITH OCCASIONAL VENTRICULAR PREMATURE COMPLEXES NONSPECIFIC ST & T-WAVE ABNORMALITY ABNORMAL RHYTHM ECG Ventricular premature complex(es) now present T-wave abnormality now present Sinus rhythm no longer present Electronically Signed On 03-28-2022 20:34:54 CDT by Eugenio Olson M.D. [id number]
[2022-03-27 23:50] VITALS: BP 135/75; BP 147/77; PULSE 118; PULSE 99; RESP 18; TEMP 36.7; O2SAT 94; O2SAT 97; BMI 28.8
--- NOTE | 2022-03-27 23:50 | XRR_ITS ---
PROCEDURE INFORMATION: Exam: XR Chest Exam date and time: 03/27/2022 11:57 PM Age: 76 years old Clinical indication: Shortness of breath; Prior surgery; Surgery type: Chest port. Gb; Patient HX: C/O SOB. History of lung cancer. TECHNIQUE: Imaging protocol: Radiologic exam of the chest. Views: 1 view. COMPARISON: CT chest w con* [id number] 03/18/2022 11:32 AM FINDINGS: Tubes, catheters and devices: Stable position of the left chest port catheter with its tip in the superior vena cava. Lungs: Pulmonary hyperinflation and hyperlucent upper lobes consistent with known emphysema. The previously described right upper lobe opacity has resolved. There is no evidence of focal pulmonary consolidation. Multiple stable calcified granulomata seen throughout both lung . There are multiple calcified bilateral hilar lymph nodes. Increased linear opacities at the left lung base may represent atelectasis or in the appropriate clinical setting, pneumonia. Pleural spaces: No pleural effusion or pneumothorax. Heart/Mediastinum: Normal in size. Bones/joints: No acute fracture is identified. XR/XR chest 1V portable [id number] IMPRESSION: 1. Pulmonary emphysema. 2. Old granulomatous disease. 3. Increased linear opacities at the left lung base that may reflect atelectasis or in the appropriate clinical setting, developing pneumonia. Clinical correlation is necessary.
--- NOTE | 2022-03-27 23:58 | ED_ITS ---
HPI - SOB/Dyspnea General: Chief Complaint: Shortness of Breath/Dyspnea Stated Complaint: Resp. Distress Time Seen by Provider: 03/27/22 23:45 Source: patient and EMS Mode of arrival: EMS Limitations: no limitations History of Present Illness: HPI Narrative: 76-year-old male has a history of lung cancer along with COPD along with CHF. He states he is currently on chemo he states he has not been on any meds for his CHF did stop tamales also ran out of his albuterol inhaler he states that tonight he started having worsening shortness of breath along with a slight cough patient given Solu-Medrol breathing treatment in route he states he feels much improved after that. He is able speak in full sentences here he denies any pain denies any vomiting or diarrhea. Associated symptoms: Deny abdominal pain, chest pain, fever(s), nausea or vomiting Review of Systems Const: Denies: fever(s), chills, body aches or change in appetite Eyes: Denies: blurry vision or eye discomfort ENMT: Denies: throat pain or dental pain Card: Denies: chest pain Resp: Reports: dyspnea GI: Denies: abdominal pain, nausea, vomiting or diarrhea : Denies: dysuria Musc: Denies: neck pain or back pain Skin/Breast: Denies: rash Neuro: Denies: headache(s) Psych: Denies: depression Andrew/Lymph: Denies: easy bruising All/Imm: Denies: urticaria PFSH ED PFSH: Medical History Bradycardia Cognitive dysfunction COPD (chronic obstructive pulmonary disease) Degenerative arthritis Hypertension Sleep apnea Type 2 diabetes mellitus Surgical History History of ankle surgery Open reduction for right ankle fracture History of bronchoscopy (01/01/22) Bronchoscopy with EBUS and FNA biopsy of lymph nodes History of cholecystectomy 2020 [place], [place] Hx of total knee arthroplasty Right knee Port-A-Cath in place (01/24/22) Family History Mother Hypertension Myocardial infarction CAD (coronary artery disease) Cancer Son Diabetes Grandmother Diabetes Other Hyperlipidemia Lung disease Denies family history of Clotting disorder Dementia Psychiatric illness Chronic kidney disease (CKD) Suicide Anesthesia complication Bleeding disorder Stroke Social History Smoking and tobacco status: former smoker (Quit smoking 2004, smoked for 13 years) Quit status (tobacco): has quit using tobacco Year quit tobacco: 1972 Former quit date comment: 1.5 ppd X 10 years Alcohol intake: current Physical Exam Const: COMMON NORMALS: no acute distress, patient oriented x3 and healthy olivia earing HENMT: COMMON NORMALS: normocephalic and atraumatic HEAD & SCALP: normocephalic and atraumatic Eye: COMMON NORMALS: Equal, round and reactive pupils present and EOMs intact bilaterally PUPIL: Yes Equal, round and reactive pupils present Neck/C-Spine: COMMON NORMALS: full ROM and supple Chest: COMMONS NORMALS: normal inspection of the chest and normal palpation of entire chest wall Resp: COMMON NORMALS: normal respiratory effort, No retractions, No use of accessory muscles and clear to auscultation bilaterally AUSCULTATION: clear to auscultation bilaterally Cardio: COMMON NORMALS: regular rate, regular rhythm and No murmurs present (Cardio) RATE: regular rate RHYTHM: regular rhythm GI: COMMON NORMALS: Normal to inspection, nondistended, normoactive bowel sounds present, Soft to palpation, non-tender and no masses PALPATION: Yes Soft to palpation Extremity: COMMON NORMALS: normal to inspection and full ROM Neuro: COMMON NORMALS: patient oriented x3, moves all extremities and no focal motor deficits Psych: COMMON NORMALS: mental status grossly normal, Normal thought process present and cooperative THOUGHT PROCESS: Normal thought process present Skin: COMMON NORMALS: no rashes or lesions noted and no wounds GENERAL SKIN EXAM: no rashes or lesions noted Course Vital Signs: Vital signs: Vital Signs Temperature 98.1 F 03/27/22 23:50 Pulse Rate 99 03/27/22 23:50 Respiratory Rate 18 03/27/22 23:50 Blood Pressure 147/77 03/27/22 23:50 Pulse Oximetry 97 03/27/22 23:50 Oxygen Delivery Me thod 03/27/22 23:50 Oxygen Flow Rate 2 03/27/22 23:50 MDM - SOB/Dyspnea Medical Decision Making Patient presents here with shortness of breath he has a cough as well. Patient is much improved here x-ray shows a possible pneumonia he is also neutropenic likely from his chemotherapy will admit him to follow blood cultures along with giving him antibiotics. Lab Data : 03/28/22 00:02 03/28/22 00:02 Labs/Radiology: Radiology Impressions Chest X-Ray 03/27/22 23:50 IMPRESSION: 1. Pulmonary emphysema. 2. Old granulomatous disease. 3. Increased linear opacities at the left lung base that may reflect atelectasis or in the appropriate clinical setting, developing pneumonia. Clinical correlation is necessary. Laboratory Results WBC 0.1 10^3/uL (4.0-10.0) L* 03/28/22 00:02 RBC 2.57 10^6/uL (4.1-5.3) L 03/28/22 00:02 Hgb 7.9 g/dL (11.7-16.6) L 03/28/22 00:02 Hct 24.5 % (42.0-52.0) L 03/28/22 00:02 MCV 95.3 fl (80-94) H 03/28/22 00:02 MCH 30.7 pg (28.0-34.0) 03/28/22 00:02 MCHC 32.2 g/dL (30.0-36.0) 03/28/22 00:02 RDW 16.5 % (12.1-15.1) H 03/28/22 00:02 Plt Count 35 10^3/cmm (130-400) L 03/28/22 00:02 MPV 10.2 fL (7.4-10.4) 03/28/22 00:02 Neut % (Auto) 14.3 % 03/28/22 00:02 Lymph % (Auto) 50.0 % 03/28/22 00:02 [place] % (Auto) 28.6 % 03/28/22 00:02 Eos % (Auto) 0.0 % 03/28/22 00:02 Baso % (Auto) 0.0 % 03/28/22 00:02 Neut # (Auto) 0.02 10^3/uL (1.8-7.7) L* 03/28/22 00:02 Lymph # (Auto) 0.1 10^3/uL (0.8-4.8) L 03/28/22 00:02 [place] # (Auto) 0.0 10^3/uL (0.2-0.9) L 03/28/22 00:02 Eos # (Auto) 0.0 10^3/uL (0.0-0.8) 03/28/22 00:02 Baso # (Auto) 0.0 10^3/uL (0.0-0.1) 03/28/22 00:02 Nucleated RBC % (auto) 0 % 03/28/22 00:02 Nucleated RBCs # 0.0 /100WBC 03/28/22 00:02 PT 14.50 SECONDS (12.1-14.9) 03/28/22 00:02 INR 1.09 (0.8-1.2) 03/28/22 00:02 Sodium 138 mmol/L (136-145) 03/28/22 00:02 Potassium 3.4 mmol/L (3.5-5.1) L 03/28/22 00:02 Chloride 98 mmol/L (98-107) 03/28/22 00:02 Carbon Dioxide 24 mmol/L (22-29) 03/28/22 00:02 Anion Gap 19.4 (5-19) H 03/28/22 00:02 BUN 33 mg/dL (8-23) H 03/28/22 00:02 Creatinine 1.4 mg/dL (0.7-1.2) H 03/28/22 00:02 GFR Calculation Not Reportable 03/28/22 00:02 Glucose 121 mg/dL (65-115) H 03/28/22 00:02 Calculated Osmolality 295 mOsm/kg (285-295) 03/28/22 00:02 Calcium 9.2 mg/dL (8.5-10.5) 03/28/22 00:02 Total Bilirubin 0.8 mg/dL (0.15-1.2) 03/28/22 00:02 AST 32 U/L (0-40) 03/28/22 00:02 ALT 22 U/L (0-41) 03/28/22 00:02 Alkaline Phosphatase 102 U/L (40-130) 03/28/22 00:02 NT-Pro-B Natriuret Pep 697 pg/mL (0-450) H 03/28/22 00:02 Total Protein 6.9 g/dL (6.6-8.7) 03/28/22 00:02 Albumin 3.4 g/dL (3.5-5.2) L 03/28/22 00:02 Globulin 3.5 g/dL (1.3-4.6) 03/28/22 00:02 SARS-CoV-2 Ag (Rapid) Negative (Negative) 03/28/22 00:02 EKG Data EKG 1: I personally reviewed and interpreted this EKG as follows: EKG Interpretation Date: 03/28/22 EKG interpretation time: 00:09 Interpretation: nsr hr [address] or t wave abnormalities qrs 92 qtc 390 Discharge Plan Discharge Patient Disposition: Admitted As Inpatient Clinical Impression: Acute exacerbation of chronic obstructive airways disease, Community acquired pneumonia, Neutropenia Condition: Stable Prescriptions: No Action nitroglycerin [Nitrostat] 0.4 mg tablet, sublingual 0.4 mg SUBLINGUAL Q5M PRN (Reason: Chest Pain) furosemide 20 mg tablet 20 mg PO DAILY PRN (Reason: edema) paroxetine HCl [Paxil] 40 mg tablet 40 mg PO DAILY fluticasone propionate [Allergy Relief (fluticasone)] 50 mcg/actuation spray,suspension 1 spray intranasal BID PRN Rx Instructions: administer into each nostril lidocaine-prilocaine 2.5-2.5 % cream 1 applic topical DIRECTED Qty: 30 2RF Rx Instructions: apply quarter sized amount 45 minutes prior to port access oxycodone 5 mg/5 mL solution 5 mg PO Q6H PRN (Reason: pain) 14 Days Qty: 250 0RF ondansetron HCl 4 mg tablet 4 mg PO Q6H PRN (Reason: nausea and vomiting) Qty: 30 2RF hydrocodone-acetaminophen 5-325 mg tablet 1 tab PO Q6H PRN (Reason: pain) Qty: 20 0RF olanzapine 5 mg tablet 5 mg PO QPM Qty: 30 3RF Rx Instructions: Take for 5 days post chemo. Compazine 10 mg tablet 10 mg PO Q4H PRN (Reason: Mild Nausea) Qty: 30 3RF lorazepam 1 mg tablet 0.5 - 1 mg PO Q6H PRN (Reason: Severe Nausea) Qty: 30 3RF Referrals: Kyle Thompson MD [Primary Care Provider] - Coding Level of Care Code ED Control Room Supervisor for Chg Fwd Exam Comprehensive
[2022-03-28] VITALS (9 sets, daily range): BP systolic 119–163; BP diastolic 50–79; PULSE 76–101; RESP 16–20; TEMP 36.5–36.8; O2SAT 90–97; BMI 28.8
[2022-03-28 00:19] LABS: Hematocrit 24.5 % (42.0-52.0); Hemoglobin 7.9 g/dL (11.7-16.6); Lymphocytes # 0.1 10^3/uL (0.8-4.8); Mean Corpuscular HGB Conc 32.2 g/dL (30.0-36.0); Mean Corpuscular Hemoglobin 30.7 pg (28.0-34.0); Mean Corpuscular Volume 95.3 fl (80-94); Mean Platelet Volume 10.2 fL (7.4-10.4); Monocytes % 28.6 %; Neutrophils % 14.3 %; Nucleated Red Blood Cells % 0 %; Platelet Count 35 10^3/cmm (130-400); Positive C 1; Positive M 1; Red Blood Count 2.57 10^6/uL (4.1-5.3); Red Cell Distribution Width 16.5 % (12.1-15.1)
[2022-03-28 00:36] LABS: SARS Covid-2 Antigen Negative (Negative)
[2022-03-28 00:40] LABS: INR 1.09 (0.8-1.2)
[2022-03-28 00:54] LABS: Alanine Aminotransferase 22 U/L (0-41); Albumin Level 3.4 g/dL (3.5-5.2); Alkaline Phosphatase 102 U/L (40-130); Anion Gap 19.4 (5-19); Aspartate Amino Transferase 32 U/L (0-40); Blood Urea Nitrogen 33 mg/dL (8-23); Calcium 9.2 mg/dL (8.5-10.5); Carbon Dioxide 24 mmol/L (22-29); Chloride 98 mmol/L (98-107); Creatinine Clr Calc Pharmacy 52.5318; Globulin 3.5 g/dL (1.3-4.6); Glucose 121 mg/dL (65-115); NT Pro B Type Natriuretic Pept 697 pg/mL (0-450); Osmolality Calculated 295 mOsm/kg (285-295); Potassium 3.4 mmol/L (3.5-5.1); Sodium 138 mmol/L (136-145); Total Bilirubin 0.8 mg/dL (0.15-1.2); Total Protein 6.9 g/dL (6.6-8.7)
[2022-03-28 01:04] LABS: Neutrophils # 0.02 10^3/uL (1.8-7.7); White Blood Count 0.1 10^3/uL (4.0-10.0)
[2022-03-28 01:05] LABS: Slide Review Slide Review Perform
--- NOTE | 2022-03-28 01:12 | PC.NURSE ---
CRITICAL LABS NOTED AND REPORTED TO DR. GREEN. PT IS ON CHEMO CURRENTLY.
[2022-03-28] MEDS: cefTRIAXone 1,000 MG in sodium chloride 0.9% (plus) 50 ML 100 MG IV (01:50)
--- NOTE | 2022-03-28 01:52 | P.HP_ITS ---
Providers/Chief Complaint Admitting Physician: Benjamin Willett MD Primary Care Provider: Kyle Thompson MD Chief Complaint: Resp. Distress History of Present Illness Rohit Merritt is a 76 year old male with past medical history of Ca rt lung on chemotherapy, COPD hypertension, CHF, was brought in with chief complaint of worsening shortness of breath as well as mild cough started today,he was also desaturating at home wiith sop2 in high 80s as well as was tachycardic as per the patient. Patient denied any chest pain, fever, abdominal pain nausea vomiting diarrhea constipation. Upon arrival in the ER he was worked up for above-mentioned complaint: Pertinent imaging studies: X-ray chest: Is suggestive of possible developing left lower lobe pneumonia Pertinent labs: WBC: 0.1 , H&H: 7.9/24 , PLT : 35 , neutrophil count: 0.02 , serum sodium 138 serum potassium 3.4, BUN serum creatinine 33 / 1.4 proBNP 697 Rapid COVID-negative Review of Systems General: Reports: 10 or more systems reviewed and unremarkable except in HPI and below Const: Denies: fever(s), chills, body aches, change in appetite or diaphoresis Card: Denies: palpitations, edema, swelling of feet/ankles or leg pain with exertion Resp: Reports: dyspnea and productive cough; Denies: wheezing or pain on inspiration GI: Denies: abdominal pain, nausea, vomiting, diarrhea or constipation : Denies: flank pain or difficulty urinating Musc: Denies: back pain, extremity pain or extremity swelling Neuro: Denies: headache(s), difficulty walking or confusion Medications/Allergies Home Medications Medication Instructions Recorded Confirmed Last Taken Type paroxetine HCl 40 mg tablet (Paxil) 40 mg PO DAILY 01/28/22 03/28/22 03/27/22 08:00 History Allergies Allergy/AdvReac Type Severity Reaction Status Date / Time codeine Allergy ALGY-Rash Verified 03/28/22 01:47 PFSH Acute PFSH: Medical History Bradycardia Cognitive dysfunction COPD (chronic obstructive pulmonary disease) Degenerative arthritis Hypertension Sleep apnea Type 2 diabetes mellitus Surgical History History of ankle surgery Open reduction for right ankle fracture History of bronchoscopy (01/01/22) Bronchoscopy with EBUS and FNA biopsy of lymph nodes History of cholecystectomy 2020 [facility], [place] Hx of total knee arthroplasty Right knee Port-A-Cath in place (01/24/22) Family History Mother Hypertension Myocardial infarction CAD (coronary artery disease) Cancer Son Diabetes Grandmother Diabetes Other Hyperlipidemia Lung disease Denies family history of Clotting disorder Dementia Psychiatric illness Chronic kidney disease (CKD) Suicide Anesthesia complication Bleeding disorder Stroke Social History Smoking and tobacco status: former smoker (Quit smoking 2004, smoked for 13 years) Quit status (tobacco): has quit using tobacco Year quit tobacco: 1972 Former quit date comment: 1.5 ppd X 10 years Alcohol intake: current Vitals/I&O/Wt Last Vital Signs Temp 98.1 F 03/27/22 23:50 Pulse 101 H 03/28/22 01:44 Resp 16 03/28/22 01:44 BP 144/79 03/28/22 01:44 Pulse Ox 95 03/28/22 01:44 O2 Del Method 03/28/22 01:44 O2 Flow Rate 2 03/28/22 01:44 Weight last 48 hrs Weight 93.894 kg Physical Exam Const: COMMON NORMALS: patient oriented x3 Resp: COMMON NORMALS: clear to auscultation bilaterally EFFORT & INSPECTION: Yes symmetric chest movement AUSCULTATION: clear to auscultation bilaterally OTHER: Diminished Air entry B/L Cardio: COMMON NORMALS: regular rate, regular rhythm, S1 normal heart sound present, S2 normal heart sound present, No gallops present (Cardio), No murmurs present (Cardio), No rub (Cardio) and Peripheral pulses 2+ throughout RATE: regular rate RHYTHM: regular rhythm HEART SOUNDS: S1 normal heart sound present and S2 normal heart sound present PERIPHERAL PULSES: Peripheral pulses 2+ throughout GI: COMMON NORMALS: Normal to inspection, nondistended, normoactive bowel sounds present, Soft to palpation, non-tender, No hepatosplenomegaly present and no masses AUSCULTATION: Yes normoactive bowel sounds PALPATION: Yes Soft to palpation and Yes No hepatosplenomegaly present RECTAL EXAM: Yes deferred Extremity: COMMON NORMALS: no clubbing, cyanosis or edema and no pedal edema Neuro: COMMON NORMALS: patient oriented x3 Data : 03/28/22 00:02 03/28/22 00:02 Micro: Microbiology 03/28/22 01:39 Blood Culture - Preliminary Blood SPECIMEN COLLECTED 03/28/22 01:38 Blood Culture - Preliminary Blood SPECIMEN COLLECTED A&P Assessment and plan (1) Neutropenia: (2) Community acquired pneumonia: (3) Acute exacerbation of chronic obstructive airways disease: (4) 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 Assessment: Pneumonia COPD Neutropenia Thrombocytopenia Leukopenia BRITANY ON CKD History of Ca right lung on chemotherapy COPD Hypertension Congestive heart failure Plan: Follow blood culture Sputum gram stain and culture Urine culture Continue duo nebs Continue ceftriaxone azithromycin for now We will initiate filgrastim DVT prophylaxis: On SCDs CODE STATUS: Full code Attestations Medical Necessity Statement*: Patient is to be in hospital for management of pneumonia COPD , neutropenia thrombocytopenia. Anticipated length of stay greater than 2 midnights Time Spent in Patient Care: Greater than 35 minutes (>than 50% of time spent in counselling and/or direct pt care on unit) . 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
[2022-03-28] MEDS: azithromycin 500 MG in sodium chloride 0.9% 250 ML 250 MG IV (02:23)
[2022-03-28] MEDS: sodium chloride 0.9% 1,000 ML 50 ML IV ×2 (03:31→19:48)
[2022-03-28] MEDS: ipratropium-albuterol 3 mL Neb INHALATION ×4 (03:31→20:00)
--- NOTE | 2022-03-28 10:48 | P.PN_ITS ---
Subjective Subjective: He has some mild cough. States does not have much phlegm to bring up. Denies any pain or trouble swallowing. No nausea or vomiting. No diarrhea. Vitals/I&O/Wt Last Vital Signs Temp 97.7 F 03/28/22 04:00 Pulse 76 03/28/22 08:11 Resp 16 03/28/22 08:11 BP 163/55 03/28/22 04:00 Pulse Ox 96 03/28/22 08:11 O2 Del Method 03/28/22 08:11 O2 Flow Rate 2 03/28/22 01:44 03/27/22 03/28/22 03/28/22 22:59 06:59 14:59 Intake Total 300 / 300 Output Total 200 / 200 Balance 300 / 300 -200 / -200 Weight last 48 hrs Weight 93.894 kg Weight 93.894 kg Physical Exam Const: COMMON NORMALS: patient oriented x3 and alert GENERAL APPEARANCE: cooperative and frail appearing ORIENTATION/CONSCIOUSNESS: Yes awake HENMT: COMMON NORMALS: oropharynx normal Neck/C-Spine: COMMON NORMALS: no JVD Resp: COMMON NORMALS: normal respiratory effort and clear to auscultation bilaterally AUSCULTATION: clear to auscultation bilaterally Cardio: COMMON NORMALS: no JVD, regular rhythm, S1 normal heart sound present, S2 normal heart sound present and No murmurs present (Cardio) RHYTHM: regular rhythm HEART SOUNDS: S1 normal heart sound present and S2 normal heart sound present GI: COMMON NORMALS: Normal to inspection, nondistended, normoactive bowel sounds present, Soft to palpation and non-tender PALPATION: Yes Soft to palpation Extremity: COMMON NORMALS: no joint enlargement and no pedal edema Neuro: COMMON NORMALS: patient oriented x3 and moves all extremities SENSORIUM/ORIENTATION: Yes alert Skin: COMMON NORMALS: no rashes or lesions noted GENERAL SKIN EXAM: no rashes or lesions noted Data : 03/28/22 00:02 03/28/22 00:02 Micro: Microbiology 03/28/22 01:39 Blood Culture - Preliminary Blood SPECIMEN COLLECTED 03/28/22 01:38 Blood Culture - Preliminary Blood SPECIMEN COLLECTED A&P Assessment and plan (1) Neutropenia: ANC 20. Receiving filgrastim. Neutropenic precautions. Zosyn, vancomycin. (2) Community acquired pneumonia: Empiric antibiotic coverage with Zosyn, vancomycin. Rapid COVID-19 negative. (3) Acute exacerbation of chronic obstructive airways disease: Doing little bit better. Currently down to room air. Mild cough. Continue breathing treatments. 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 SCD for DVT prophylaxis. Plan BRITANY: Creatinine 1.4. Receiving gentle fluid challenge. Follow-up renal function. Pneumonia COPD Neutropenia Thrombocytopenia Leukopenia BRITANY ON CKD History of Ca right lung on chemotherapy COPD Hypertension Congestive heart failure Attestations Medical Necessity Statement*: Continue admission for assessment management of pneumonia in the setting of severe neutropenia. 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
[2022-03-28] MEDS: piperacillin-tazobactam 3.375 GM in sodium chloride 0.9% (plus) 50 ML IV ×2 (11:55→19:46)
[2022-03-28] MEDS: vancomycin 1,500 MG/300 ML PIGGYBACK 200 MG IV (12:44)
--- NOTE | 2022-03-28 21:52 | PC.NURSE ---
Bedside report done with CARLTON Manzanares and CARLTON Ontiveros.
[2022-03-29] VITALS (78 sets, daily range): BP systolic 109–168; BP diastolic 69–101; PULSE 82–130; RESP 15–41; TEMP 36.4–37.4; O2SAT 86–100
[2022-03-29] MEDS: ipratropium-albuterol 3 mL Neb INHALATION ×5 (02:33→23:49)
[2022-03-29] MEDS: piperacillin-tazobactam 3.375 GM in sodium chloride 0.9% (plus) 50 ML IV ×3 (03:13→21:20)
[2022-03-29 05:06] LABS: Lymphocytes # 0.1 10^3/uL (0.8-4.8); Lymphocytes % 45.5 %; Mean Corpuscular HGB Conc 32.5 g/dL (30.0-36.0); Mean Corpuscular Hemoglobin 30.3 pg (28.0-34.0); Mean Corpuscular Volume 93.3 fl (80-94); Mean Platelet Volume 10.1 fL (7.4-10.4); Monocytes % 36.4 %; Neutrophils % 18.1 %; Nucleated Red Blood Cells % 0 %; Positive C 1; Positive M 1; Red Blood Count 2.08 10^6/uL (4.1-5.3); Red Cell Distribution Width 16.6 % (12.1-15.1)
[2022-03-29 05:28] LABS: Neutrophils # 0.02 10^3/uL (1.8-7.7)
[2022-03-29 05:34] LABS: Hematocrit 19.4 % (42.0-52.0); Hemoglobin 6.3 g/dL (11.7-16.6); Platelet Count 11 10^3/cmm (130-400); White Blood Count 0.1 10^3/uL (4.0-10.0)
[2022-03-29 05:41] LABS: Anion Gap 15.8 (5-19); Blood Urea Nitrogen 25 mg/dL (8-23); Calcium 8.5 mg/dL (8.5-10.5); Carbon Dioxide 24 mmol/L (22-29); Chloride 99 mmol/L (98-107); Glucose 99 mg/dL (65-115); Magnesium 1.6 mg/dL (1.7-2.3); Osmolality Calculated 286 mOsm/kg (285-295); Sodium 136 mmol/L (136-145)
--- NOTE | 2022-03-29 06:01 | PC.NURSE ---
Addendum entered by Sravanthi Dickey RN 03/29/22 06:11: And notified of potassium of 2.8. Original Note: Dr. Willett notified of the following critical labs: WBC 0.1, hemoglobin 6.3, hematocrit 19.4, and platelets 11.
--- NOTE | 2022-03-29 06:03 | PC.NURSE ---
Patient refused to have SCDs on. He states, they tired those yesterday and they were just too tight on my legs. Patient educated that they are to helping prevent blood clots and patient verbalized understanding.
[2022-03-29 06:12] LABS: Potassium 2.8 mmol/L (3.5-5.1)
[2022-03-29] MEDS: potassium chloride ER 20 mEq Tablet PO (06:33)
[2022-03-29] MEDS: lidocaine 1% 5 ML in potassium chloride premix 100 ML 25 ML IV (06:33)
--- NOTE | 2022-03-29 06:43 | PC.NURSE ---
Patient alert and oriented x4. Patient's linens and underwear had urine and feces on them. Patient's linens changed. Patient offered x2 for us to change his underwear and refused both times. nurse lucrecia Franks at bedside as well when patient refused x2. Patient states both times, my will do it when she comes in.
[2022-03-29] MEDS: magnesium sulfate premix 2 GM/50 ML PIGGYBACK IV (08:39)
--- NOTE | 2022-03-29 10:48 | PM.PN ---
Subjective Subjective: States he is doing fair to partly cloudy . Denies any particular pain. Mild cough. No nausea vomiting or diarrhea. No trouble or pain swallowing. Discussed with him regarding lower counts today, discussed regarding transfusion of RBC, platelets. Discussed replacement of hypokalemia, hypomagnesemia. Continue treatment of pneumonia, Neupogen. Vitals/I&O/Wt Last Vital Signs Temp 99.1 F 03/29/22 08:00 Pulse 101 H 03/29/22 08:49 Resp 20 H 03/29/22 08:40 BP 146/72 03/29/22 08:00 Pulse Ox 86 L 03/29/22 08:40 O2 Del Method 03/29/22 08:40 O2 Flow Rate 2 03/28/22 01:44 03/28/22 03/29/22 03/29/22 22:59 06:59 14:59 Intake Total 864.167 / 1404.167 780 / 2184.167 Output Total 300 / 750 350 / 350 Balance 864.167 / 954.167 480 / 1434.167 -350 / -350 Weight last 48 hrs Weight 85.185 kg Weight 93.894 kg Weight 93.894 kg Physical Exam Const: COMMON NORMALS: patient oriented x3 and alert GENERAL APPEARANCE: cooperative and frail appearing ORIENTATION/CONSCIOUSNESS: Yes awake HENMT: COMMON NORMALS: oropharynx normal Neck/C-Spine: COMMON NORMALS: no JVD Chest: OTHER: L chest port appears unremarkable Resp: COMMON NORMALS: normal respiratory effort and clear to auscultation bilaterally AUSCULTATION: clear to auscultation bilaterally Cardio: COMMON NORMALS: no JVD, regular rhythm, S1 normal heart sound present, S2 normal heart sound present and No murmurs present (Cardio) RHYTHM: regular rhythm HEART SOUNDS: S1 normal heart sound present and S2 normal heart sound present GI: COMMON NORMALS: Normal to inspection, nondistended, normoactive bowel sounds present, Soft to palpation and non-tender PALPATION: Yes Soft to palpation Extremity: COMMON NORMALS: no joint enlargement and no pedal edema Neuro: COMMON NORMALS: patient oriented x3 and moves all extremities SENSORIUM/ORIENTATION: Yes alert Skin: COMMON NORMALS: no rashes or lesions noted GENERAL SKIN EXAM: no rashes or lesions noted Data : 03/29/22 04:40 03/29/22 04:40 Micro: Microbiology 03/28/22 01:39 Blood Culture - Preliminary Blood NEGATIVE TO DATE 03/28/22 01:38 Blood Culture - Preliminary Blood NEGATIVE TO DATE A&P Assessment and plan (1) Neutropenia: ANC 20. Receiving filgrastim. Neutropenic precautions. Zosyn, vancomycin. (2) Community acquired pneumonia: Empiric antibiotic coverage with Zosyn, vancomycin. Rapid COVID-19 negative. (3) Acute exacerbation of chronic obstructive airways disease: Doing little bit better. Currently down to room air. Mild cough. Continue breathing treatments. 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 Transfused 2 units irradiated. SCD for DVT prophylaxis. (6) Pancytopenia: Hemoglobin down to 6.3, transfuse 1 unit RBC look reduced, irradiated Plan Hypokalemia: Replaced, also replace magnesium Hypomagnesemia: Replace, recheck BRITANY: Improved. Receiving gentle fluid challenge. Follow-up renal function. Pneumonia COPD Neutropenia Thrombocytopenia Leukopenia BRITANY ON CKD History of Ca right lung on chemotherapy COPD Hypertension Congestive heart failure Attestations Medical Necessity Statement*: Continue admission for assessment management of pneumonia with severe neutropenia, pancytopenia, electrolyte deficiencies. 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
[2022-03-29] MEDS: lidocaine-prilocaine cream 5 gm 1 APPLIC TOPICAL (11:12)
--- NOTE | 2022-03-29 11:48 | PC.CHAP ---
Pastoral Care Encounter/Spiritual Assessment Type of Contact [] Declined malt loader visit [] Patient/Family/Request visit [] Outpatient visit [] Follow-up visit [] Physician referral [] Code/Alert [x] Routine visit [] Staff referral [] Actively dying [] Patient sleeping [] Family support [] [] Out of room [] Palliative care [] [] Receiving care in room [] Pre-surgical visit [] Trauma [] Long length of stay [] ICU visit [x] Other:sob b Relational/Emotional Strength [] Patient feels connected with others/family/visitors/staff [] Distress [] Loneliness/isolation [] Abandonment Spirituality of Patient [] Person of [place] [] Attends Cheondoism of their [place] [] Believes in Prayer [] Reads Bible or Caodaism materials [] There are Spiritual issues to be addressed Craft Recruiter Interventions [x] Prayer [] Active listening [] Non-anxious presence [] Spiritual/emotional support [] Crisis/trauma care [] Spiritual counseling [] Bereavement support [] Provided bereavement packet [] Provided Bible/devotional materials [] Provided toy/stuffed animal, coloring book to patient or family member [] Provided Communion [] Anointing/[place] [] Salvation [x] Completed spiritual assessment [] Other: Impact on Illness or Injury [] Angry [] Fearful [] Anxious [] Often cries [] Exhaustion [] Unable to work [] Unable to attend uatsdin [] Unable to walk/stand [] Unable to read [] Unable to drive [] Unable to eat/drink [] Unable to sleep [] Unable to be with family [] Patient intubated [] Other: Summary Time spent with patient
[2022-03-29] MEDS: vancomycin 1,500 MG/300 ML PIGGYBACK 200 MG IV (13:43)
[2022-03-29] MEDS: sodium chloride 0.9% (100 ml) 100 ML (17:43)
--- NOTE | 2022-03-29 18:36 | XRR_ITS ---
PROCEDURE INFORMATION: Exam: XR Chest Exam date and time: 03/29/2022 6:56 PM Age: 76 years old Clinical indication: Other: Resp distress, look for pneumo; Additional info: Cxr TECHNIQUE: Imaging protocol: Radiologic exam of the chest. Views: 1 view. COMPARISON: CR (CHEST, ) 03/27/2022 11:57 PM FINDINGS: Tubes, catheters and devices: Stable left Mediport catheter. Lungs: Stable COPD . Pleural spaces: Unremarkable. No pleural effusion. No pneumothorax. Heart/Mediastinum: Unremarkable. No cardiomegaly. Bones/joints: Moderate thoracic spondylosis. XR/XR chest 1V portable [id number] IMPRESSION: 1. Stable COPD . 2. Stable left Mediport catheter.
--- NOTE | 2022-03-29 18:37 | ECG_ITS ---
[facility] Test Date: 2022-03-29 Pat Name: Rohit Merritt Department: Room: [facility] Gender: Male Associate Designer: : 1945 Requested By: Ravindra Mejia Order Number: [id number] Mazin MD: Zacarias Ritter M.D. Measurements Intervals [place] Rate: 138 P: 109 VT: 152 QRS: 45 QRSD: 85 T: 72 QT: 296 QTc: 449 Interpretive Statements SINUS TACHYCARDIA MODERATE ST DEPRESSION [0.05+ mV ST DEPRESSION] Compared to ECG 03/28/2022 00:09:47 ST (T wave) deviation now present Ventricular premature complex(es) no longer present T-wave abnormality no longer present Sinus rhythm no longer present Electronically Signed On 03-31-2022 22:04:29 CDT by Zacarias Ritter M.D. [id number]
[2022-03-29 18:49] LABS: Hematocrit 26.7 % (42.0-52.0); Hemoglobin 8.6 g/dL (11.7-16.6); Lymphocytes # 0.1 10^3/uL (0.8-4.8); Lymphocytes % 63.6 %; Mean Corpuscular HGB Conc 32.2 g/dL (30.0-36.0); Mean Corpuscular Hemoglobin 30.1 pg (28.0-34.0); Mean Corpuscular Volume 93.4 fl (80-94); Mean Platelet Volume 10.2 fL (7.4-10.4); Monocytes % 18.2 %; Neutrophils % 18.2 %; Nucleated Red Blood Cells % 0 %; Platelet Count 51 10^3/cmm (130-400); Red Blood Count 2.86 10^6/uL (4.1-5.3); Red Cell Distribution Width 16.1 % (12.1-15.1)
[2022-03-29 19:00] LABS: Neutrophils # 0.02 10^3/uL (1.8-7.7); White Blood Count 0.1 10^3/uL (4.0-10.0)
[2022-03-29 19:09] LABS: D Dimer 2.58 ug/mIFEU (0-0.59)
[2022-03-29 19:14] LABS: Troponin T (5th) Once 46 ng/L (0-15)
[2022-03-29 19:15] LABS: Alanine Aminotransferase 25 U/L (0-41); Albumin Level 2.7 g/dL (3.5-5.2); Alkaline Phosphatase 70 U/L (40-130); Anion Gap 13.4 (5-19); Aspartate Amino Transferase 26 U/L (0-40); Blood Urea Nitrogen 21 mg/dL (8-23); Calcium 8.4 mg/dL (8.5-10.5); Carbon Dioxide 25 mmol/L (22-29); Chloride 101 mmol/L (98-107); Globulin 3.1 g/dL (1.3-4.6); Glucose 127 mg/dL (65-115); Osmolality Calculated 287 mOsm/kg (285-295); Potassium 3.4 mmol/L (3.5-5.1); Sodium 136 mmol/L (136-145); Total Bilirubin 1.1 mg/dL (0.15-1.2); Total Protein 5.8 g/dL (6.6-8.7)
--- NOTE | 2022-03-29 19:33 | CTR_ITS ---
PROCEDURE INFORMATION: Exam: CTA Chest With Contrast Exam date and time: 03/29/2022 10:01 PM Age: 76 years old Clinical indication: Dyspnea; Additional info: Dyspnea, tachycardia, assess for pe TECHNIQUE: Imaging protocol: Computed tomographic angiography of the chest with contrast. 3D rendering (Not supervised by radiologist): MIP and/or 3D reconstructed images were created by the technologist. Radiation optimization: All CT scans at this facility use at least one of these dose optimization techniques: automated exposure control; mA and/or kV adjustment per patient size (includes targeted exams where dose is matched to clinical indication); or iterative reconstruction. Contrast material: OMNIPAQUE 350; Contrast volume: 95 ml; Contrast route: INTRAVENOUS (IV); COMPARISON: CT angio chest PE protcl [id number] 05/31/2019 12:00 PM RADIATION DOSE METRICS: Total DLP (mGy-cm): 405.07 FINDINGS: Tubes, catheters and devices: Interval placement of a left Mediport catheter. Pulmonary arteries: No pulmonary embolus or aortic dissection. Aorta: Calcification of the thoracic aorta and/or great vessels consistent with atherosclerotic vessel disease. Lungs: See Lymph nodes finding. Pleural spaces: Unremarkable. No pneumothorax. No pleural effusion. Heart: Severe calcified coronary artery disease. Lymph nodes: Stable calcified bilateral hilar nodes and/or mediastinal nodes and/or lung granulomas consistent with old granulomatous disease. Gallbladder and bile ducts: Interval cholecystectomy since the previous exam. Bones/joints: Large flowing multilevel hypertrophic vertebral body osteophytes consistent with diffuse idiopathic skeletal hyperostosis (DISH) syndrome. Soft tissues: Unremarkable. CT/CT angio chest PE protcl [id number] IMPRESSION: 1. Interval placement of a left Mediport catheter. 2. Severe calcified coronary artery disease. 3. No pulmonary embolus or aortic dissection. 4. Interval cholecystectomy since the previous exam.
[2022-03-29] MEDS: budesonide 0.5 mg/2 mL Neb INHALATION (19:36)
[2022-03-29] MEDS: LORazepam 0.5 mg Tablet PO (21:21)
[2022-03-29] MEDS: iohexol 350 mg/mL 100 mL Btl IV (22:15)
--- NOTE | 2022-03-29 22:33 | PC.NURSE ---
Pt taken by bed to CT with all monitor devices attached and oxygen 10L via oxymask. Transfer and procedure tolerated well, pt back in room at this time.
[2022-03-30] VITALS (184 sets, daily range): BP systolic 110–158; BP diastolic 60–100; PULSE 62–102; RESP 12–54; TEMP 36.4–36.9; O2SAT 94–100
[2022-03-30 00:24] LABS: Hemoglobin 7.1 g/dL (11.7-16.6); Mean Corpuscular HGB Conc 34.3 g/dL (30.0-36.0); Mean Corpuscular Hemoglobin 31.1 pg (28.0-34.0); Mean Corpuscular Volume 90.8 fl (80-94); Mean Platelet Volume 10.4 fL (7.4-10.4); Monocytes # 0.1 10^3/uL (0.2-0.9); Monocytes % 46.7 %; Neutrophils % 33.3 %; Nucleated Red Blood Cells % 0 %; Platelet Count 36 10^3/cmm (130-400); Red Blood Count 2.28 10^6/uL (4.1-5.3); Red Cell Distribution Width 16.3 % (12.1-15.1)
[2022-03-30 00:54] LABS: Slide Review Slide Review Perform
[2022-03-30 00:55] LABS: Hematocrit 20.7 % (42.0-52.0); Neutrophils # 0.05 10^3/uL (1.8-7.7); White Blood Count 0.2 10^3/uL (4.0-10.0)
[2022-03-30] MEDS: piperacillin-tazobactam 3.375 GM in sodium chloride 0.9% (plus) 50 ML IV ×3 (03:04→20:06)
[2022-03-30] MEDS: ipratropium-albuterol 3 mL Neb INHALATION ×6 (03:22→23:53)
[2022-03-30 04:00] LABS: Hematocrit 20.9 % (42.0-52.0); Hemoglobin 6.8 g/dL (11.7-16.6); Mean Corpuscular HGB Conc 32.5 g/dL (30.0-36.0); Mean Corpuscular Volume 92.1 fl (80-94); Mean Platelet Volume 10.8 fL (7.4-10.4); Monocytes # 0.1 10^3/uL (0.2-0.9); Monocytes % 43.5 %; Neutrophils % 43.5 %; Nucleated Red Blood Cells % 0 %; Platelet Count 32 10^3/cmm (130-400); Red Blood Count 2.27 10^6/uL (4.1-5.3); Red Cell Distribution Width 16.3 % (12.1-15.1)
[2022-03-30 04:16] LABS: Anion Gap 12.6 (5-19); Blood Urea Nitrogen 23 mg/dL (8-23); Calcium 8.2 mg/dL (8.5-10.5); Carbon Dioxide 24 mmol/L (22-29); Chloride 100 mmol/L (98-107); Glucose 156 mg/dL (65-115); Magnesium 1.8 mg/dL (1.7-2.3); Osmolality Calculated 283 mOsm/kg (285-295); Potassium 3.6 mmol/L (3.5-5.1); Sodium 133 mmol/L (136-145)
[2022-03-30 04:29] LABS: Slide Review Slide Review Perform
[2022-03-30 04:31] LABS: White Blood Count 0.2 10^3/uL (4.0-10.0)
--- NOTE | 2022-03-30 08:19 | PC.NURSE ---
Morning labs show a drop in hemoglobin form 8.6 to 6.8 in a [address]se [address] lopez. Roberto advised he will order a unit of blood. Patient is not symptomatic at this time. Nurse is keeping patient on bedrest due to low HGB as well as low platelets.
[2022-03-30] MEDS: budesonide 0.5 mg/2 mL Neb INHALATION ×2 (09:01→20:14)
[2022-03-30 09:47] LABS: Hematocrit 23.1 % (42.0-52.0); Hemoglobin 7.5 g/dL (11.7-16.6); Lymphocytes # 0.1 10^3/uL (0.8-4.8); Lymphocytes % 13.6 %; Mean Corpuscular HGB Conc 32.5 g/dL (30.0-36.0); Mean Corpuscular Volume 92.4 fl (80-94); Mean Platelet Volume 10.1 fL (7.4-10.4); Monocytes # 0.2 10^3/uL (0.2-0.9); Monocytes % 36.4 %; Nucleated Red Blood Cells % 0 %; Platelet Count 34 10^3/cmm (130-400); Red Cell Distribution Width 16.1 % (12.1-15.1)
[2022-03-30 09:59] LABS: Neutrophils # 0.22 10^3/uL (1.8-7.7); White Blood Count 0.4 10^3/uL (4.0-10.0)
[2022-03-30] MEDS: PARoxetine 20 mg Tablet 40 MG PO (10:08)
[2022-03-30 10:26] LABS: Bilirubin Urine Negative (Negative); Blood Urine Small (Negative); Glucose Urine UA Negative (Normal); Ketones Urine 1+ (Negative); Leukocyte Esterase Urine Negative (Negative); Nitrate Urine Negative; Protein Urine 2+; Urine Color Yellow (Yellow); Urobilinogen Urine 0.2 mg/dL (Negative); pH Urine 5.5 (5-7)
[2022-03-30 10:41] LABS: Add Urine Microscopic? YES
[2022-03-30 10:43] LABS: Squamous Epithelial Cell Urine RARE /hpf (0-5)
[2022-03-30 10:44] LABS: Add Urine Culture? No; Bacteria Urine 1+ /hpf
[2022-03-30] MEDS: vancomycin 1,500 MG/300 ML PIGGYBACK 200 MG IV (11:08)
--- NOTE | 2022-03-30 16:30 | PM.PN ---
Subjective Subjective: Last night rapid response was called shortly before 7 PM. He had just completed first unit of platelets. He was doing well prior to that, about an hour earlier he had completed a unit of RBC. Rapid response was called due to severe dyspnea, sinus tachycardia, diminished lung sounds. HR 130s, sinus rhythm. Denies chest pain or pressure. Received a breathing treatment with some relief. Started on NIPPV support. Sounding tight on exam, did not sound wet, no noted JVD. Chest x-ray was obtained, without signs of fluid overload or acute lung injury. Troponin with mild elevation EKG with nonspecific ST-T wave changes. No additional dialysis and repeat labs. Transfusion reaction labs and urine requested. Received a dose of Solu-Medrol, added steroid nebs, continue with duo nebs for COPD exacerbation. D-dimer Abnormal, suspect CT scan of the chest, without PE and otherwise nonacute. Continued gradual improvement. Weaned off BiPAP, this morning doing well on 2-3 L nasal cannula. Denies any chest discomfort. States he is back to feeling like his previous self. Denies any nausea, vomiting or diarrhea. No pain on swallowing. Vitals/I&O/Wt Last Vital Signs Temp 97.7 F 03/30/22 13:15 Pulse 90 03/30/22 16:00 Resp 20 H 03/30/22 16:00 BP 125/63 03/30/22 16:00 Pulse Ox 98 03/30/22 16:00 O2 Del Method 03/30/22 16:00 O2 Flow Rate 3 03/30/22 16:00 FiO2 50 03/29/22 19:38 03/30/22 03/30/22 03/30/22 06:59 14:59 22:59 Intake Total 100 / 2289 50 / 50 Output Total 200 / 200 350 / 550 Balance 100 / 1939 -150 / -150 -350 / -500 Weight last 48 hrs Weight 85.185 kg Physical Exam Const: COMMON NORMALS: patient oriented x3 and alert GENERAL APPEARANCE: cooperative and frail appearing ORIENTATION/CONSCIOUSNESS: Yes awake HENMT: COMMON NORMALS: oropharynx normal OTHER: No thrush Neck/C-Spine: COMMON NORMALS: no JVD Chest: OTHER: L chest port appears unremarkable Resp: COMMON NORMALS: normal respiratory effort OTHER: Mildly diminished but improving air entry. Cardio: COMMON NORMALS: no JVD, regular rhythm, S1 normal heart sound present, S2 normal heart sound present and No murmurs present (Cardio) RHYTHM: regular rhythm HEART SOUNDS: S1 normal heart sound present and S2 normal heart sound present GI: COMMON NORMALS: Normal to inspection, nondistended, normoactive bowel sounds present, Soft to palpation and non-tender PALPATION: Yes Soft to palpation Extremity: COMMON NORMALS: no joint enlargement and no pedal edema Neuro: COMMON NORMALS: patient oriented x3 and moves all extremities SENSORIUM/ORIENTATION: Yes alert Skin: COMMON NORMALS: no rashes or lesions noted GENERAL SKIN EXAM: no rashes or lesions noted Data : 03/30/22 09:24 03/30/22 02:55 A&P Assessment and plan (1) Acute respiratory failure with hypoxia: Acute episode of dyspnea, sinus tachycardia, diminished air entry shortly after completing platelets. Possibly antibiotic reaction to platelet transfusion. Does also have underlying COPD, possible COPD exacerbation. Responded well to breathing treatment, steroids, additionally started on budesonide neb. No hemolysis or transfusion reaction noted on studies. No evidence of fluid overload, lung injury on imaging studies. Abnormal D-dimer, but possibly due to his malignancy, recent chemotherapy, other comorbidities. No PE on CTA. Weaned off NIPPV support. Doing well on nasal cannula this morning. Continue care on medical floor. (2) Neutropenia: ANC appears to be now recovering, up to 220 currently. Continue filgrastim. Continue treatment of pneumonia, Zosyn, vancomycin. (3) Pancytopenia: Yesterday received 1 unit RBC transfusion due to hemoglobin 6.3, 1 unit platelets due to platelet down to 11,000. Rest. Stress episode with sinus tachycardia, diminished lung sounds shortly after platelet transfusion. Today initially blood count indicating hemoglobin 6.8, but on recheck counts overall appear to be improving. Hemoglobin down to 7.5. Platelets up to 34,000. ANC up to 220. Hold off additional transfusion for now. Will reassess blood counts in the morning. (4) Community acquired pneumonia: Empiric antibiotic coverage with Zosyn, vancomycin. Rapid COVID-19 negative. (5) Acute exacerbation of chronic obstructive airways disease: Acute worsening last night, received IV steroid, additional breathing treatment, nebulized budesonide. Continue nebs and inhaled steroid. Empiric antibiotics. 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 Platelets today up to 34,000. Second unit not transfused. SCD for DVT prophylaxis. Plan Hypokalemia: Replaced, Hypomagnesemia: Additional replacement, recheck BRITANY: Improved. Receiving gentle fluid challenge. Follow-up renal function. Pneumonia COPD Neutropenia Thrombocytopenia Leukopenia BRITANY ON CKD History of Ca right lung on chemotherapy COPD Hypertension Congestive heart failure Attestations Medical Necessity Statement*: Continue admission for cyst management of severe neutropenia, pneumonia, pancytopenia and gentleman with underlying lung cancer on chemotherapy. 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
[2022-03-30] MEDS: LORazepam 0.5 mg Tablet PO (20:02)
[2022-03-31] VITALS (21 sets, daily range): BP systolic 122–154; BP diastolic 67–81; PULSE 62–109; RESP 16–20; TEMP 36.3–37.3; O2SAT 89–100
[2022-03-31] MEDS: ipratropium-albuterol 3 mL Neb INHALATION ×6 (04:01→23:18)
[2022-03-31] MEDS: piperacillin-tazobactam 3.375 GM in sodium chloride 0.9% (plus) 50 ML IV ×3 (04:11→20:49)
[2022-03-31 05:25] LABS: Hemoglobin 6.6 g/dL (11.7-16.6); Lymphocytes # 0.1 10^3/uL (0.8-4.8); Lymphocytes % 9.7 %; Mean Corpuscular HGB Conc 33.3 g/dL (30.0-36.0); Mean Corpuscular Hemoglobin 30.1 pg (28.0-34.0); Mean Corpuscular Volume 90.4 fl (80-94); Mean Platelet Volume 10.1 fL (7.4-10.4); Monocytes # 0.3 10^3/uL (0.2-0.9); Monocytes % 26.9 %; Neutrophils % 59.1 %; Nucleated Red Blood Cells % 0 %; Red Blood Count 2.19 10^6/uL (4.1-5.3); Red Cell Distribution Width 16.4 % (12.1-15.1)
[2022-03-31 06:02] LABS: Blood Urea Nitrogen 25 mg/dL (8-23); Calcium 8.4 mg/dL (8.5-10.5); Carbon Dioxide 26 mmol/L (22-29); Chloride 105 mmol/L (98-107); Glucose 113 mg/dL (65-115); Magnesium 1.8 mg/dL (1.7-2.3); Osmolality Calculated 299 mOsm/kg (285-295); Slide Review Slide Review Perform; Sodium 142 mmol/L (136-145)
[2022-03-31 06:03] LABS: Hematocrit 19.8 % (42.0-52.0); Neutrophils # 0.55 10^3/uL (1.8-7.7); Platelet Count 19 10^3/cmm (130-400); White Blood Count 0.9 10^3/uL (4.0-10.0)
[2022-03-31] MEDS: budesonide 0.5 mg/2 mL Neb INHALATION ×2 (07:24→20:06)
[2022-03-31] MEDS: potassium chloride ER 20 mEq Tablet 40 MEQ PO (08:41)
[2022-03-31] MEDS: PARoxetine 20 mg Tablet 40 MG PO (08:42)
[2022-03-31] MEDS: vancomycin 1,500 MG/300 ML PIGGYBACK 200 MG IV (11:22)
[2022-03-31 11:36] LABS: Vancomycin Trough 14.6 ug/mL (10-15)
--- NOTE | 2022-03-31 11:40 | PC.SOCIAL ---
IMM update IMM updated with patient and family at bedside. Verbalized an understanding. Copy Pg 2 provided. Initialled, dated, timed, and placed in chart.
[2022-03-31 11:44] LABS: Basophils % 0.8 %; Eosinophils % 0.8 %; Lymphocytes # 0.1 10^3/uL (0.8-4.8); Lymphocytes % 9.8 %; Mean Corpuscular HGB Conc 33.2 g/dL (30.0-36.0); Mean Corpuscular Hemoglobin 29.9 pg (28.0-34.0); Mean Corpuscular Volume 90.2 fl (80-94); Mean Platelet Volume 10.2 fL (7.4-10.4); Monocytes # 0.3 10^3/uL (0.2-0.9); Monocytes % 27.9 %; Neutrophils % 52.5 %; Nucleated Red Blood Cells % 0 %; Red Blood Count 2.14 10^6/uL (4.1-5.3); Red Cell Distribution Width 16.5 % (12.1-15.1); White Blood Count 1.2 10^3/uL (4.0-10.0)
[2022-03-31 12:03] LABS: Hematocrit 19.3 % (42.0-52.0); Hemoglobin 6.4 g/dL (11.7-16.6)
[2022-03-31 12:04] LABS: Platelet Count 19 10^3/cmm (130-400)
[2022-03-31 12:05] LABS: Neutrophils # 0.64 10^3/uL (1.8-7.7)
[2022-03-31] MEDS: LORazepam 0.5 mg Tablet PO (17:38)
--- NOTE | 2022-03-31 17:57 | P.PN_ITS ---
Subjective Subjective: Today he reports he is doing fair to partly cloudy. Denies any additional changes. Breathing overall unchanged since improved. No headache, no nausea vomiting or diarrhea. No trouble swallowing. No thrush. Discussed further regarding additional decline in red blood cells, 6.6, his daughter has been very concerned about giving additional transfusion given his previous respiratory distress episode. Discussed again regarding results of transfusion reaction studies, discussed findings on exam as well as imaging, without signs of lung injury, overload, and suspected idiopathic reaction after platelets as per discussion with hematology. Still we discussed a different reaction cannot be guaranteed against, but blood would be discontinued in case of any additional signs of reaction. Discussed rechecking CBC, recheck CBC with hemoglobin 6.4. Vitals/I&O/Wt Last Vital Signs Temp 97.8 F 03/31/22 17:23 Pulse 93 03/31/22 17:23 Resp 17 03/31/22 17:23 BP 154/81 03/31/22 17:23 Pulse Ox 97 03/31/22 17:23 O2 Del Method 03/31/22 16:00 O2 Flow Rate 1 03/31/22 08:49 FiO2 50 03/29/22 19:38 03/31/22 03/31/22 03/31/22 06:59 14:59 22:59 Intake Total 200 / 922 830 / 830 50 / 880 Balance 200 / 372 830 / 830 50 / 880 Physical Exam Narrative: Accompanied by his daughter. Const: COMMON NORMALS: patient oriented x3 and alert GENERAL APPEARANCE: cooperative and frail appearing ORIENTATION/CONSCIOUSNESS: Yes awake HENMT: COMMON NORMALS: oropharynx normal OTHER: No thrush Neck/C-Spine: COMMON NORMALS: no JVD Chest: OTHER: L chest port appears unremarkable Resp: COMMON NORMALS: normal respiratory effort and clear to auscultation bilaterally AUSCULTATION: clear to auscultation bilaterally OTHER: Mildly diminished but improving air entry. Cardio: COMMON NORMALS: no JVD, regular rhythm, S1 normal heart sound present, S2 normal heart sound present and No murmurs present (Cardio) RHYTHM: regular rhythm HEART SOUNDS: S1 normal heart sound present and S2 normal heart sound present GI: COMMON NORMALS: Normal to inspection, nondistended, normoactive bowel sounds present, Soft to palpation and non-tender PALPATION: Yes Soft to palpation Extremity: COMMON NORMALS: no joint enlargement and no pedal edema Neuro: COMMON NORMALS: patient oriented x3 and moves all extremities SENSORIUM/ORIENTATION: Yes alert Skin: COMMON NORMALS: no rashes or lesions noted GENERAL SKIN EXAM: no rashes or lesions noted Data : 03/31/22 11:34 03/31/22 05:05 A&P Assessment and plan (1) Neutropenia: ANC improving, continue filgrastim until ANC at least several thousand. Continue treatment of pneumonia, Zosyn, vancomycin. (2) Pancytopenia: Hemoglobin again lower today 6.6, recheck 6.4. As per discussion additional RBC transfusion. Thrombocytopenia, platelets 19,000, although given reaction they are hesitant regarding additional transfusions. Will reassess counts. Currently no active bleeding. Appears may have had KELSEY pathic reaction to platelet transfusion with dyspnea, tachycardia, bronchospasm, malaise. (3) Acute respiratory failure with hypoxia: Resolved. Acute episode of dyspnea, sinus tachycardia, diminished air entry shortly after completing platelets. Possibly antibiotic reaction to platelet transfusion. Does also have underlying COPD, possible COPD exacerbation. Responded well to breathing treatment, steroids, additionally started on budesonide neb. No hemolysis or transfusion reaction noted on studies. No evidence of fluid overload, lung injury on imaging studies. Abnormal D-dimer, but possibly due to his malignancy, recent chemotherapy, other comorbidities. No PE on CTA. Weaned off NIPPV support. Weaning off nasal cannula, now on room air. (4) Community acquired pneumonia: Empiric antibiotic coverage with Zosyn, vancomycin. Rapid COVID-19 negative. (5) Acute exacerbation of chronic obstructive airways disease: Improving. Continue nebs and inhaled steroid. Empiric antibiotics. 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 SCD for DVT prophylaxis. Plan Hypokalemia: Replace. Recheck. Hypomagnesemia: Replace, recheck. BRITANY: Resolved. Off IV fluid. Follow-up renal function. Pneumonia COPD Neutropenia Thrombocytopenia Leukopenia BRITANY ON CKD resolved History of Ca right lung on chemotherapy COPD Hypertension Congestive heart failure Attestations Medical Necessity Statement*: Continue admission for management of pneumonia in the setting of neutropenia, pancytopenia requiring RBC transfusion. 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
[2022-04-01] VITALS (9 sets, daily range): BP systolic 131–159; BP diastolic 68–76; PULSE 71–112; RESP 16–24; TEMP 36.4–36.6; O2SAT 92–98
[2022-04-01] MEDS: ipratropium-albuterol 3 mL Neb INHALATION ×3 (03:09→11:01)
[2022-04-01] MEDS: piperacillin-tazobactam 3.375 GM in sodium chloride 0.9% (plus) 50 ML IV ×2 (03:38→11:43)
[2022-04-01 04:56] LABS: Basophils % 1.2 %; Eosinophils % 0.8 %; Hematocrit 23.5 % (42.0-52.0); Hemoglobin 7.7 g/dL (11.7-16.6); Lymphocytes # 0.2 10^3/uL (0.8-4.8); Lymphocytes % 7.1 %; Mean Corpuscular HGB Conc 32.8 g/dL (30.0-36.0); Mean Corpuscular Hemoglobin 30.1 pg (28.0-34.0); Mean Corpuscular Volume 91.8 fl (80-94); Mean Platelet Volume 11.8 fL (7.4-10.4); Monocytes # 0.5 10^3/uL (0.2-0.9); Monocytes % 19.1 %; Neutrophils # 1.54 10^3/uL (1.8-7.7); Neutrophils % 63.9 %; Nucleated Red Blood Cells % 0 %; Red Blood Count 2.56 10^6/uL (4.1-5.3); Red Cell Distribution Width 15.9 % (12.1-15.1); White Blood Count 2.4 10^3/uL (4.0-10.0)
[2022-04-01 05:15] LABS: Anion Gap 12.1 (5-19); Blood Urea Nitrogen 14 mg/dL (8-23); Calcium 8.5 mg/dL (8.5-10.5); Carbon Dioxide 24 mmol/L (22-29); Chloride 105 mmol/L (98-107); Glucose 92 mg/dL (65-115); Magnesium 1.7 mg/dL (1.7-2.3); Osmolality Calculated 286 mOsm/kg (285-295); Potassium 3.1 mmol/L (3.5-5.1); Sodium 138 mmol/L (136-145)
[2022-04-01 05:19] LABS: Slide Review Slide Review Perform
[2022-04-01 05:20] LABS: Platelet Count 14 10^3/cmm (130-400)
[2022-04-01] MEDS: budesonide 0.5 mg/2 mL Neb INHALATION (08:05)
[2022-04-01] MEDS: PARoxetine 20 mg Tablet 40 MG PO (08:39)
[2022-04-01] MEDS: vancomycin 1,500 MG/300 ML PIGGYBACK 200 MG IV (11:38)
[2022-04-01] MEDS: potassium chloride ER 20 mEq Tablet 40 MEQ PO (11:39)
--- NOTE | 2022-04-01 12:11 | P.DS_ITS ---
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 Distress Hospital Course Hospital Course 76 year old male with past medical history of Ca rt lung on chemotherapy, COPD hypertension, CHF, was brought in with chief complaint of worsening shortness of breath as well as mild cough started today. Patient presented to [facility] for neutropenia, pancytopenia, dyspnea. Patient was admitted with broad-spectrum antibiotic therapy coverage, COVID-19 testing negative, remained afebrile, blood cultures remain unremarkable, required 1 unit PRBC for anemia. 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 Also received filgrastim for his neutropenia. Overall patient clinically improved. I discussed the case with Dr. Abdi, plan is discharge home today with close follow-up with Dr. Abdi on Friday for blood work. White blood cell count 2.4, neutrophils 1.54, platelet count 14, hemoglobin 7.7. Patient was advised if he were to develop any bloody or black stools or any bleeding go to the emergency room immediately discharged on 5 remaining days of antibiotic therapy. Physical Exam Const: COMMON NORMALS: no acute distress and patient oriented x3 Resp: COMMON NORMALS: normal respiratory effort, No retractions, No use of accessory muscles and clear to auscultation bilaterally AUSCULTATION: clear t o auscultation bilaterally Cardio: COMMON NORMALS: regular rate, regular rhythm, S1 normal heart sound present and S2 normal heart sound present RATE: regular rate RHYTHM: regular rhythm HEART SOUNDS: S1 normal heart sound present and S2 normal heart sound present GI: COMMON NORMALS: Normal to inspection, nondistended, normoactive bowel sounds present, non-tender and no masses Extremity: COMMON NORMALS: no pedal edema Neuro: COMMON NORMALS: patient oriented x3 Psych: COMMON NORMALS: mental status grossly normal Discharge Data Studies Completed and Pending Completed Studies During Hospitalization Category Date Time Status CTA chest [CT angio chest PE protcl [id number]] Routine Cat Scan 03/29/22 19:33 Completed CXRP [XR chest 1V portable [id number]] Stat Exams 03/29/22 18:36 Completed XR chest 1V portable [id number] Stat Exams 03/27/22 23:50 Completed Pending at discharge Category Date Time Status ABO/Rh Type Routine Lab 03/29/22 08:10 Results Basic Metabolic Panel AM LABS Lab 04/02/22 04:00 Ordered Basic Metabolic Panel AM LABS Lab 04/03/22 04:00 Ordered Blood Culture Stat Lab 03/28/22 01:39 Results Complete Blood Count w/Auto AM LABS Lab 04/02/22 04:00 Ordered Complete Blood Count w/Auto AM LABS Lab 04/03/22 04:00 Ordered Complete Crossmatch Routine Lab 03/29/22 08:10 Results Irradiated Leuko Red RBC Routine Lab 03/29/22 08:10 Results Irradiated Leuko Red RBC Routine Lab 03/31/22 08:16 Results Platelets Leukoreduced Irradia Routine Lab 03/29/22 08:10 Results Transfusion Reaction Routine Lab 03/29/22 19:40 Results Type and Screen Routine Lab 03/29/22 08:10 Results Radiology Impressions Chest X-Ray 03/29/22 18:36 IMPRESSION: 1. Stable COPD . 2. Stable left Mediport catheter. Chest CTA 03/29/22 19:33 IMPRESSION: 1. Interval placement of a left Mediport catheter. 2. Severe calcified coronary artery disease. 3. No pulmonary embolus or aortic dissection. 4. Interval cholecystectomy since the previous exam. Laboratory Results WBC 2.4 10^3/uL (4.0-10.0) L 04/01/22 04:44 RBC 2.56 10^6/uL (4.1-5.3) L 04/01/22 04:44 Hgb 7.7 g/dL (11.7-16.6) L 04/01/22 04:44 Hct 23.5 % (42.0-52.0) L 04/01/22 04:44 MCV 91.8 fl (80-94) 04/01/22 04:44 MCH 30.1 pg (28.0-34.0) 04/01/22 04:44 MCHC 32.8 g/dL (30.0-36.0) 04/01/22 04:44 RDW 15.9 % (12.1-15.1) H 04/01/22 04:44 Plt Count 14 10^3/cmm (130-400) L* 04/01/22 04:44 MPV 11.8 fL (7.4-10.4) H 04/01/22 04:44 Neut % (Auto) 63.9 % 04/01/22 04:44 Lymph % (Auto) 7.1 % 04/01/22 04:44 [place] % (Auto) 19.1 % 04/01/22 04:44 Eos % (Auto) 0.8 % 04/01/22 04:44 Baso % (Auto) 1.2 % 04/01/22 04:44 Neut # (Auto) 1.54 10^3/uL (1.8-7.7) L 04/01/22 04:44 Lymph # (Auto) 0.2 10^3/uL (0.8-4.8) L 04/01/22 04:44 [place] # (Auto) 0.5 10^3/uL (0.2-0.9) 04/01/22 04:44 Eos # (Auto) 0.0 10^3/uL (0.0-0.8) 04/01/22 04:44 Baso # (Auto) 0.0 10^3/uL (0.0-0.1) 04/01/22 04:44 Nucleated RBC % (auto) 0 % 04/01/22 04:44 Nucleated RBCs # 0.0 /100WBC 04/01/22 04:44 Haptoglobin 285.0 mg/L (30-200) H 03/29/22 18:48 PT 14.50 SECONDS (12.1-14.9) 03/28/22 00:02 INR 1.09 (0.8-1.2) 03/28/22 00:02 D-Dimer 2.58 ug/mIFEU (0-0.59) H 03/29/22 18:48 Sodium 138 mmol/L (136-145) 04/01/22 04:44 Potassium 3.1 mmol/L (3.5-5.1) L 04/01/22 04:44 Chloride 105 mmol/L (98-107) 04/01/22 04:44 Carbon Dioxide 24 mmol/L (22-29) 04/01/22 04:44 Anion Gap 12.1 (5-19) 04/01/22 04:44 BUN 14 mg/dL (8-23) 04/01/22 04:44 Creatinine 0.7 mg/dL (0.7-1.2) 04/01/22 04:44 GFR Calculation Not Reportable 04/01/22 04:44 Glucose 92 mg/dL (65-115) 04/01/22 04:44 Calculated Osmolality 286 mOsm/kg (285-295) 04/01/22 04:44 Calcium 8.5 mg/dL (8.5-10.5) 04/01/22 04:44 Magnesium 1.7 mg/dL (1.7-2.3) 04/01/22 04:44 Total Bilirubin 1.1 mg/dL (0.15-1.2) 03/29/22 18:40 AST 26 U/L (0-40) 03/29/22 18:40 ALT 25 U/L (0-41) 03/29/22 18:40 Alkaline Phosphatase 70 U/L (40-130) 03/29/22 18:40 Troponin T Gen 5 ng/L 46 ng/L (0-15) H 03/29/22 18:48 NT-Pro-B Natriuret Pep 697 pg/mL (0-450) H 03/28/22 00:02 Total Protein 5.8 g/dL (6.6-8.7) L 03/29/22 18:40 Albumin 2.7 g/dL (3.5-5.2) L 03/29/22 18:40 Globulin 3.1 g/dL (1.3-4.6) 03/29/22 18:40 Procalcitonin 3.20 ng/mL (0-0.5) H 03/29/22 04:40 Urine Color Yellow (Yellow) 03/30/22 08:42 Urine Appearance Sl cloudy (CLEAR) A 03/30/22 08:42 Urine pH 5.5 (5-7) 03/30/22 08:42 Ur Specific [place] 1.020 (1.005-1.030) 03/30/22 08:42 Urine Protein 2+ 03/30/22 08:42 Urine Glucose (UA) Negative (Normal) 03/30/22 08:42 Urine Ketones 1+ (Negative) A 03/30/22 08:42 Urine Blood Small (Negative) A 03/30/22 08:42 Urine Nitrate Negative 03/30/22 08:42 Urine Bilirubin Negative (Negative) 03/30/22 08:42 Urine Urobilinogen 0.2 mg/dL (Negative) 03/30/22 08:42 Ur Leukocyte Esterase Negative (Negative) 03/30/22 08:42 Urine RBC None /hpf (0-2) 03/30/22 08:42 Urine WBC None /hpf (0-5) 03/30/22 08:42 Ur Squamous Epith Cells Rare /hpf (0-5) 03/30/22 08:42 Amorphous Sediment Not Reportable 03/30/22 08:42 Urine Bacteria 1+ /hpf (NONE) H 03/30/22 08:42 Vancomycin Trough 14.6 ug/mL (10-15) 03/31/22 11:02 SARS-CoV-2 Ag (Rapid) Negative (Negative) 03/28/22 00:02 Blood Type A Positive 03/29/22 08:10 Rho(D) Type Positive 03/29/22 08:10 Antibody Screen Negative 03/29/22 08:10 Crossmatch See Detail 03/29/22 08:10 Reaction Clerical Check No discrepancy 03/29/22 19:40 Pre-Trans Blood Type Ap 03/29/22 19:40 Pre-Trans Urine RBC Gynecology Teacher 03/29/22 18:54 Post-Trans Blood Type A Positive 03/29/22 19:40 Post-Tx Visible Hemolys No hemolysis 03/29/22 19:40 Post-Trans KALPANA Negative 03/29/22 19:40 Vitals Last Vital Signs Temp 97.5 F L 04/01/22 08:00 Pulse 92 04/01/22 11:07 Resp 16 04/01/22 11:01 BP 131/72 04/01/22 08:00 Pulse Ox 96 04/01/22 11:01 O2 Del Method 04/01/22 11:01 O2 Flow Rate 1 03/31/22 20:00 FiO2 50 03/29/22 19:38 Discharge Plan Discharge Patient Disposition: Home Condition: Stable Prescriptions: New levofloxacin 750 mg tablet 750 mg PO DAILY 5 Days Qty: 5 0RF Continued paroxetine HCl [Paxil] 40 mg tablet 40 mg PO DAILY Discharge Orders: Discharge Order (Routine); Ordered 04/01/22 Ordered By: Berny Wagoner Referrals: Kyle Thompson MD [Primary Care Provider] - 04/05/22 7:30 am Huseyin Abdi MD [Hospitalist] - 1-3 days (friday needs appt) Discharge Diet: Cardiac Discharge Activity: Resume usual activity Patient Instructions: Neutropenic Precautions (GEN), Pancytopenia (DC), Neutropenia - Oncology, Neutropenic Diet, Opioid Safety Assessment: - Continue to facemask, hand wash, socially distancing -Continue to take antibiotic therapy -Continue to hydrate well -Neutropenic precautions -Follow-up with Dr. 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
--- NOTE | 2022-04-01 14:55 | PC.NURSE ---
patients port de-accessed. patient verbalized understanding of discharge instructions, home medications, and follow up appointments.
== END 2022-04-01 14:34 | disposition home or self-care (01) | DRG 808 ==
LOC: ER 03-28 01:38 → MEDSURG 03-28 01:44 → ICU 03-29 18:48 → MEDSURG 03-30 15:55
PROVIDERS: Internal Medicine; Admitting Provider Internal Medicine; Emergency Provider Emergency Medicine; PCP Family Medicine; Visit Provider Family Medicine
DX: D70.1 Agranulocytosis secondary to cancer chemotherapy (principal); J18.9 Pneumonia, unspecified organism; J96.01 Acute respiratory failure with hypoxia; C34.11 Malignant neoplasm of upper lobe, right bronchus or lung; J44.1 Chronic obstructive pulmonary disease with (acute) exacerbation; J44.0 Chronic obstructive pulmonary disease with (acute) lower respiratory infection; I13.0 Hypertensive heart and chronic kidney disease with heart failure and stage 1 through stage 4 chronic kidney disease, or unspecified chronic kidney disease; N17.9 Acute kidney failure, unspecified; T45.1X5A Adverse effect of antineoplastic and immunosuppressive drugs, initial encounter; Z79.899 Other long term (current) drug therapy; I50.9 Heart failure, unspecified; N18.9 Chronic kidney disease, unspecified; E11.22 Type 2 diabetes mellitus with diabetic chronic kidney disease; G47.30 Sleep apnea, unspecified; Z96.651 Presence of right artificial knee joint; Z87.891 Personal history of nicotine dependence; D69.6 Thrombocytopenia, unspecified; E87.6 Hypokalemia; E83.42 Hypomagnesemia; D61.818 Other pancytopenia; Z95.828 Presence of other vascular implants and grafts; I25.10 Atherosclerotic heart disease of native coronary artery without angina pectoris; T80.89XA Other complications following infusion, transfusion and therapeutic injection, initial encounter
CPT/HCPCS: 36415; 36430; 71045; 71275; 80048; 80053; 80202; 80503; 81001; 83010; 83735; 83880; 84145; 84484; 85025; 85378; 85610; 86850; 86900; 86920; 87040; 87426; 93005; 94640; 94660; 96365; 96367; 96372; 99285; J0456; J0696; J1442; J2543; J2930; J3370; J3475; J3480; J7030; J7050; J7626; P9037; P9040; Q5101; Q9967

== ENCOUNTER 2022-04-23 08:00 | Oncology outpatient (recurring) (ONCR) | payer MEDICARE, SELFPAY ==
[2022-04-03 12:31] LABS: Basophils # 0.1 10^3/uL (0.0-0.1); Basophils % 0.9 %; Hemoglobin 8.3 g/dL (11.7-16.6); Lymphocytes # 0.3 10^3/uL (0.8-4.8); Lymphocytes % 4.6 %; Mean Corpuscular HGB Conc 33.2 g/dL (30.0-36.0); Mean Corpuscular Hemoglobin 30.2 pg (28.0-34.0); Mean Corpuscular Volume 90.9 fl (80-94); Monocytes # 0.7 10^3/uL (0.2-0.9); Monocytes % 12.6 %; Neutrophils # 4.29 10^3/uL (1.8-7.7); Neutrophils % 79.5 %; Nucleated Red Blood Cells % 0 %; Red Blood Count 2.75 10^6/uL (4.1-5.3); Red Cell Distribution Width 15.6 % (12.1-15.1); White Blood Count 5.4 10^3/uL (4.0-10.0)
[2022-04-03] MEDS: acetaminophen 325 mg Tablet 650 MG PO (13:02)
[2022-04-03 13:03] LABS: Platelet Count 13 10^3/cmm (130-400)
[2022-04-04] MEDS: diphenhydrAMINE 25 mg Capsule PO (14:44)
[2022-04-04] MEDS: acetaminophen 325 mg Tablet 650 MG PO (14:44)
[2022-04-04 14:48] VITALS: BP 128/73; PULSE 101; TEMP 36.5; O2SAT 97
[2022-04-04 15:05] VITALS: BP 125/68; PULSE 80; TEMP 36.6; O2SAT 96
[2022-04-04 15:19] VITALS: BP 125/68; PULSE 80; TEMP 36.4; O2SAT 96
[2022-04-08 11:04] LABS: Basophils % 0.4 %; Hematocrit 24.1 % (42.0-52.0); Hemoglobin 7.9 g/dL (11.7-16.6); Lymphocytes # 0.4 10^3/uL (0.8-4.8); Lymphocytes % 13.7 %; Mean Corpuscular HGB Conc 32.8 g/dL (30.0-36.0); Mean Corpuscular Hemoglobin 30.5 pg (28.0-34.0); Mean Corpuscular Volume 93.1 fl (80-94); Mean Platelet Volume 11.2 fL (7.4-10.4); Monocytes # 0.5 10^3/uL (0.2-0.9); Monocytes % 19.8 %; Neutrophils # 1.72 10^3/uL (1.8-7.7); Neutrophils % 65.3 %; Nucleated Red Blood Cells % 0 %; Platelet Count 57 10^3/cmm (130-400); Red Blood Count 2.59 10^6/uL (4.1-5.3); Red Cell Distribution Width 15.4 % (12.1-15.1); White Blood Count 2.6 10^3/uL (4.0-10.0)
[2022-04-08 11:15] VITALS: BMI 24.5
[2022-04-08 11:22] LABS: Alanine Aminotransferase 7 U/L (0-41); Albumin Level 3.2 g/dL (3.5-5.2); Alkaline Phosphatase 80 U/L (40-130); Anion Gap 14.3 (5-19); Aspartate Amino Transferase 13 U/L (0-40); Blood Urea Nitrogen 16 mg/dL (8-23); Calcium 8.7 mg/dL (8.5-10.5); Carbon Dioxide 28 mmol/L (22-29); Chloride 100 mmol/L (98-107); Globulin 3.3 g/dL (1.3-4.6); Glucose 162 mg/dL (65-115); Osmolality Calculated 293 mOsm/kg (285-295); Potassium 3.3 mmol/L (3.5-5.1); Sodium 139 mmol/L (136-145); Total Bilirubin 0.4 mg/dL (0.15-1.2); Total Protein 6.5 g/dL (6.6-8.7)
[2022-04-09] VITALS (11 sets, daily range): BP systolic 113–160; BP diastolic 68–84; PULSE 62–87; RESP 17–18; TEMP 36.1–36.6; O2SAT 97–100
[2022-04-09] MEDS: acetaminophen 325 mg Tablet 650 MG PO (10:07)
[2022-04-09] MEDS: diphenhydrAMINE 25 mg Capsule PO (10:08)
[2022-04-09] MEDS: sodium chloride 0.9% 100 mL Bag 250 ML IV (10:20)
[2022-04-09] MEDS: FUROsemide 10 mg/mL SDV 2mL 20 MG IVP (12:04)
[2022-04-15 12:11] LABS: Basophils % 0.6 %; Eosinophils % 0.9 %; Hematocrit 34.9 % (42.0-52.0); Hemoglobin 11.3 g/dL (11.7-16.6); Lymphocytes # 0.8 10^3/uL (0.8-4.8); Lymphocytes % 23.1 %; Mean Corpuscular HGB Conc 32.4 g/dL (30.0-36.0); Mean Corpuscular Hemoglobin 29.9 pg (28.0-34.0); Mean Corpuscular Volume 92.3 fl (80-94); Monocytes # 0.7 10^3/uL (0.2-0.9); Monocytes % 22.2 %; Neutrophils # 1.76 10^3/uL (1.8-7.7); Neutrophils % 52.9 %; Nucleated Red Blood Cells % 0 %; Platelet Count 116 10^3/cmm (130-400); Red Blood Count 3.78 10^6/uL (4.1-5.3); White Blood Count 3.3 10^3/uL (4.0-10.0)
[2022-04-15 12:49] LABS: Alanine Aminotransferase 9 U/L (0-41); Albumin Level 3.4 g/dL (3.5-5.2); Alkaline Phosphatase 102 U/L (40-130); Anion Gap 14.1 (5-19); Aspartate Amino Transferase 22 U/L (0-40); Blood Urea Nitrogen 16 mg/dL (8-23); Calcium 8.8 mg/dL (8.5-10.5); Carbon Dioxide 30 mmol/L (22-29); Chloride 100 mmol/L (98-107); Globulin 3.5 g/dL (1.3-4.6); Glucose 163 mg/dL (65-115); Osmolality Calculated 297 mOsm/kg (285-295); Potassium 3.1 mmol/L (3.5-5.1); Sodium 141 mmol/L (136-145); Total Bilirubin 0.5 mg/dL (0.15-1.2); Total Protein 6.9 g/dL (6.6-8.7)
[2022-04-16 10:20] VITALS: BMI 24.5
[2022-04-16] MEDS: sodium chlor 0.9% + KCl 40 mEq 40 MEQ/1,000 ML BAG 500 MEQ IV (11:00)
[2022-04-16 13:30] VITALS: BP 147/78; PULSE 74; RESP 18; TEMP 36.2; O2SAT 96
--- NOTE | 2022-04-16 15:11 | PC.NURSE ---
Called to remind the patient that he needs to take his Potassium that was prescribed by Dr. Abdi. Patient let this nurse know that he will turkey picker the prescription later and start taking it. The patient had no other questions or concerns at this time.
[2022-04-23 09:55] LABS: Basophils % 0.4 %; Eosinophils # 0.1 10^3/uL (0.0-0.8); Eosinophils % 1.6 %; Hematocrit 32.1 % (42.0-52.0); Hemoglobin 10.2 g/dL (11.7-16.6); Lymphocytes # 0.8 10^3/uL (0.8-4.8); Lymphocytes % 18.2 %; Mean Corpuscular HGB Conc 31.8 g/dL (30.0-36.0); Mean Corpuscular Hemoglobin 30.7 pg (28.0-34.0); Mean Corpuscular Volume 96.7 fl (80-94); Mean Platelet Volume 9.5 fL (7.4-10.4); Monocytes # 0.8 10^3/uL (0.2-0.9); Monocytes % 18.9 %; Neutrophils # 2.69 10^3/uL (1.8-7.7); Neutrophils % 60.5 %; Nucleated Red Blood Cells % 0 %; Platelet Count 162 10^3/cmm (130-400); Red Blood Count 3.32 10^6/uL (4.1-5.3); Red Cell Distribution Width 20.2 % (12.1-15.1); White Blood Count 4.5 10^3/uL (4.0-10.0)
[2022-04-23 10:18] LABS: Alanine Aminotransferase < 5 U/L (0-41); Alkaline Phosphatase 103 U/L (40-130); Anion Gap 13.5 (5-19); Aspartate Amino Transferase 19 U/L (0-40); Blood Urea Nitrogen 16 mg/dL (8-23); Calcium 8.5 mg/dL (8.5-10.5); Carbon Dioxide 28 mmol/L (22-29); Chloride 105 mmol/L (98-107); Creatinine Clr Calc Pharmacy 68.7463; Globulin 3.1 g/dL (1.3-4.6); Glucose 162 mg/dL (65-115); Osmolality Calculated 301 mOsm/kg (285-295); Potassium 3.5 mmol/L (3.5-5.1); Sodium 143 mmol/L (136-145); Total Bilirubin 0.4 mg/dL (0.15-1.2); Total Protein 6.1 g/dL (6.6-8.7)
== END 2022-04-29 23:59 | disposition home or self-care (01) ==
PROVIDERS: Absent Provider Radiology Radiation Oncology; PCP Family Medicine; Visit Provider Internal Medicine Medical Oncology
DX: Z87.891 Personal history of nicotine dependence; C34.11 Malignant neoplasm of upper lobe, right bronchus or lung; Z79.899 Other long term (current) drug therapy
CPT/HCPCS: 36430; 36591; 80053; 85025; 86850; 86900; 86920; 96365; 96366; 96375; 99214; J1940; P9016; P9040

== ENCOUNTER 2022-05-20 11:52 | Outpatient (CLI) | payer MEDICARE, SELFPAY ==
[2022-05-20] MEDS: iohexol 350 mg/mL 100 mL Btl PO (12:03)
--- NOTE | 2022-05-20 13:00 | CT_ITS ---
WS: [id number] CT CHEST, ABDOMEN AND PELVIS WITH CONTRAST HISTORY: Restaging lung cancer. TECHNIQUE: Contiguous 5 mm axial imaging performed through the chest, abdomen and pelvis with IV cont rast, oral contrast has been provided. Coronal and sagittal reformats chest. Coronal and sagittal ref ormats through the abdomen and pelvis. All CT scans at [facility] use at least one of these d ose optimization techniques: automated exposure control; mA and/or kV adjustment per patient size (in cludes targeted exams where dose is matched to clinical indication); or iterative reconstruction. CONTRAST: Omnipaque 350; 95 mL IV. DLP: 1759.91 mGy.cm COMPARISON: 03/29/2022, 03/18/[address]: Previously identified RIGHT upper lobe PET/CT positive neoplasm has essentially resolved. T here is a small amount of reactive pleural thickening remaining in the RIGHT upper thorax. Pleural me tastatic nodule reidentified measuring 1.4 x 1.1 cm. No decrease in size. There is a small layering R IGHT pleural effusion which is unchanged. There are additional calcified granulomata. Mild dependent changes at the LEFT lung base. Small amount of mucus in the posterior inferior trachea. RIGHT paratra cheal lymph nodes are very small caliber. Residual soft tissue in the RIGHT hilum measures 5 mm. Smal l hiatal hernia. Heart size is normal. No pericardial effusion. Very mild atherosclerosis aorta. Pulm onary artery is mildly enlarged. RIGHT pericardial fat lymph node measures 9.6 mm in short axis diameter. This lymph node was not pres ent on the prior exams. Abdomen CT: Normal size liver. There is mild pneumobilia. There are a few small foci of air centrally which are probably related to the postcholecystectomy. No metastatic lesions within the liver or adr enal glands. Normal spleen and pancreas. No renal obstruction. No solid mass. Mild atherosclerosis ao rta. No ascites or adenopathy. Stomach is well-distended with oral contrast. No small bowel obstruction. Numerous diverticula in the distal colon. No evidence for acute diverticulitis. There is circumferential wall thickening within the sigmoid. This is more progressed than on the prior PET/CT. If colonoscopy has not been performed this may be of benefit to exclude early sigmoid lesion. These changes may also be due to peristalsis and contraction. No GI tract obstruction. The appendix is not definitely identified. Pelvic CT: Well-distended urinary bladder. Marked fecal retention at the rectum. Prostate gland centr al calcifications. No osteoblastic bone changes. Subchondral cystic changes in the hips bilaterally s imilar to 01/05/2022. CT/CT chest abd pel w con* IMPRESSION: 1. Complete resolution RIGHT upper lobe PET/CT positive lung neoplasm. 2. Severe emphysema. 3. Decrease in size of the mediastinal and hilar lymph nodes. 4. New lymph node in the RIGHT pericardiac fat measures 9.6 mm. This can be re evaluated on follow-up imaging. 5. Small layering RIGHT pleural effusion. 6. Minimal residual pleural-based nodule in the RIGHT lower thorax described o n PET/CT is positive also. Does not appear improved. 7. Prior cholecystectomy.
[2022-05-20] MEDS: iohexol 350 mg/mL 100 mL Btl IV (13:09)
== END 2022-05-20 11:53 | disposition home or self-care (01) ==
PROVIDERS: PCP Family Medicine; Visit Provider Internal Medicine Medical Oncology
DX: C34.11 Malignant neoplasm of upper lobe, right bronchus or lung (principal); J43.9 Emphysema, unspecified; Z90.49 Acquired absence of other specified parts of digestive tract; J90 Pleural effusion, not elsewhere classified
CPT/HCPCS: 71260; 74177; Q9967

== ENCOUNTER 2022-05-22 10:46 | Outpatient (CLI) | payer MEDICARE, SELFPAY ==
--- NOTE | 2022-05-22 11:00 | MR_ITS ---
WS: [id number] MRI HEAD WITH CONTRAST TECHNIQUE: Sagittal T1, T2 axial, T2 axial FLAIR, axial susceptibility weighted imaging, axial diffus ion weighted images, and coronal T2 images were obtained. Pre and post-T1 axial and post T1 coronal i mages. ADC and FSPGR images. CLINICAL INFORMATION: Surveillance COMPARISON: MRI January 15, 2022 FINDINGS: No evidence of restricted diffusion to suggest acute ischemia. Ventricular system and basal cisterns are patent. No hemosiderin on the susceptibility weighted images. Mild small vessel changes. Moderate parenchymal volume loss. Small vessel changes appears slightly progressed compared to January 15, 2022. Normal posterior fossa. Normal vascular flow voids at the skull base. No extra-axial fluid collections. No evidence of mass o r mass effect. Normal posterior nasopharynx. Normal parapharyngeal fat. Paranasal sinuses and mastoid air cells are well aerated. Moderate to advanced symmetric atrophy temporal lobes and hippocampal fo rmations. Normal optic chiasm and pituitary infundibulum. Normal cavernous sinuses and Meckel's cave. No abnormal gadolinium enhancement. No evidence of enhancing intracranial metastatic disease. Normal visualized dural venous sinuses. MR/MR head wo/w con [id number] IMPRESSION: 1. No evidence of restricted diffusion to suggest acute ischemia. 2. No evidence of enhancing intracranial metastatic disease. 3. Mild small vessel changes with moderate parenchymal volume loss. This appea rs slightly progressed compared to January 15, 2022. 4. Moderate to advanced symmetric atrophy temporal lobes and hippocampal forma tions. 5. No hemosiderin on susceptibly weighted images. 6. No other significant findings.
[2022-05-22] MEDS: gadobenate dimeglumine 20 mL vial IV (11:51)
== END 2022-05-22 10:47 | disposition home or self-care (01) ==
LOC: RAD 10:47
PROVIDERS: PCP Family Medicine; Visit Provider Internal Medicine Medical Oncology
DX: C34.11 Malignant neoplasm of upper lobe, right bronchus or lung (principal); G31.9 Degenerative disease of nervous system, unspecified
CPT/HCPCS: 70553; A9577

== ENCOUNTER 2022-06-13 10:15 | Oncology outpatient (recurring) (ONCR) | payer MEDICARE, SELFPAY ==
[2022-06-10 10:11] LABS: Basophils % 0.6 %; Eosinophils # 0.4 10^3/uL (0.0-0.8); Hematocrit 33.6 % (42.0-52.0); Hemoglobin 10.9 g/dL (11.7-16.6); Lymphocytes # 0.7 10^3/uL (0.8-4.8); Lymphocytes % 13.3 %; Mean Corpuscular HGB Conc 32.4 g/dL (30.0-36.0); Mean Corpuscular Hemoglobin 33.7 pg (28.0-34.0); Mean Platelet Volume 11.4 fL (7.4-10.4); Monocytes # 0.3 10^3/uL (0.2-0.9); Monocytes % 6.6 %; Neutrophils % 72.3 %; Nucleated Red Blood Cells % 0 %; Platelet Count 72 10^3/cmm (130-400); Red Blood Count 3.23 10^6/uL (4.1-5.3); Red Cell Distribution Width 15.4 % (12.1-15.1); White Blood Count 5.1 10^3/uL (4.0-10.0)
[2022-06-10 10:30] LABS: Alanine Aminotransferase < 5 U/L (0-41); Albumin Level 3.5 g/dL (3.5-5.2); Alkaline Phosphatase 111 U/L (40-130); Anion Gap 11.3 (5-19); Blood Urea Nitrogen 13 mg/dL (8-23); Calcium 8.7 mg/dL (8.5-10.5); Carbon Dioxide 28 mmol/L (22-29); Chloride 102 mmol/L (98-107); Globulin 3.2 g/dL (1.3-4.6); Glucose 146 mg/dL (65-115); Osmolality Calculated 289 mOsm/kg (285-295); Potassium 3.3 mmol/L (3.5-5.1); Sodium 138 mmol/L (136-145); Total Bilirubin 0.4 mg/dL (0.15-1.2); Total Protein 6.7 g/dL (6.6-8.7)
[2022-06-10 10:41] LABS: Aspartate Amino Transferase 14 U/L (0-40)
[2022-06-10 11:23] LABS: Magnesium 1.7 mg/dL (1.7-2.3); Thyroid Stimulating Hormone 2.57 uIU/mL (0.27-4.20); Vitamin B12 196 pg/mL (232-1245)
--- NOTE | 2022-06-10 12:39 | PC.NURSE ---
Pt sent to infusion suite for lab draw and port flush from OV. Pt had previous port needle in place. Pts states it has been there for weeks, unsure of exactly how long. No date noted on needle dressing. Educated pt and that the needle is only able to stay in place for up to a week. Port needle removed without flushing. Port site does not appear to have any signs of infection. Reaccessed pts port via sterile technique. Labs drawn as ordered, port flushed, needle removed. - ramy
[2022-06-19 09:29] LABS: Methylmalonic Acid 1150 nmol/L (87-318)
== END 2022-06-13 18:00 | disposition home or self-care (01) ==
PROVIDERS: PCP Family Medicine; Visit Provider Internal Medicine Medical Oncology
DX: D51.9 Vitamin B12 deficiency anemia, unspecified
CPT/HCPCS: 36415; 36591; 80053; 82607; 83735; 83921; 84443; 85025; 99214

== ENCOUNTER 2022-06-25 20:34 | Emergency (ER) | payer MEDICARE, SELFPAY ==
[2022-06-25 20:40] VITALS: BMI 26.4
[2022-06-25 20:44] VITALS: BP 193/97; PULSE 92; RESP 16; TEMP 37.1; O2SAT 94
--- NOTE | 2022-06-25 21:04 | ED_ITS ---
Documented by User: Virgie Whitley MD 06/25/22 22:50 HPI - Altered Mental Status General: Chief Complaint: Altered Mental Status Stated Complaint: AMS Time Seen by Provider: 06/25/22 21:03 History of Present Illness: Patient has been sent in by EMS for worsening confusion. History is limited as the family is not here. EMS reports that the patient's family states that he is becoming increasingly confused and they are concerned that he has dementia. They wanted to have them checked out . The patient does state that he is fallen several times over the past couple of months. The patient is oriented to person only. Review of Systems General: Reports: ROS unobtainable due to mental status PFSH ED PFSH: Medical History Bradycardia Cognitive dysfunction COPD (chronic obstructive pulmonary disease) Degenerative arthritis Hypertension Sleep apnea Type 2 diabetes mellitus Surgical History History of ankle surgery Open reduction for right ankle fracture History of bronchoscopy (01/01/22) Bronchoscopy with EBUS and FNA biopsy of lymph nodes History of cholecystectomy 2020 [place], [place] Hx of total knee arthroplasty Right knee Port-A-Cath in place (01/24/22) Family History Mother Hypertension Myocardial infarction CAD (coronary artery disease) Cancer Son Diabetes Grandmother Diabetes Other Hyperlipidemia Lung disease Denies family history of Clotting disorder Dementia Psychiatric illness Chronic kidney disease (CKD) Suicide Anesthesia complication Bleeding disorder Stroke Social History Smoking and tobacco status: former smoker (Quit smoking 2004, smoked for 13 years) Quit status (tobacco): has quit using tobacco Year quit tobacco: 1972 Former quit date comment: 1.5 ppd X 10 years Alcohol intake: current Physical Exam Const: COMMON NORMALS: no acute distress ORIENTATION/CONSCIOUSNESS: Yes oriented to person; not oriented to place and not oriented to time Resp: COMMON NORMALS: normal respiratory effort, No retractions, No use of accessory muscles and clear to auscultation bilaterally AUSCULTATION: clear to auscultation bilaterally Cardio: COMMON NORMALS: regular rate, regular rhythm, S1 normal heart sound present and S2 normal heart sound present RATE: regular rate RHYTHM: regular rhythm HEART SOUNDS: S1 normal heart sound present and S2 normal heart sound present GI: COMMON NORMALS: Normal to inspection, nondistended, normoactive bowel sounds present, non-tender and no masses Extremity: COMMON NORMALS: no pedal edema Neuro: COMMON NORMALS: moves all extremities, no focal motor deficits and no sensory deficits noted SENSORIUM/ORIENTATION: Yes oriented to person, No oriented to place and No oriented to time Psych: COMMON NORMALS: mental status grossly normal Course ED course: Patient's been evaluated in the emergency department. He had labs obtained, chest x-ray head CT. Urinalysis is pending at this time. His head CT shows no acute changes. His chest x-ray stable from prior. His laboratory studies are unremarkable with the exception of his urinalysis is pending. He has a normal white blood cell count. Hemoglobin 7.6, hematocrit 32.9. Platelets are 83. Patient is a chemotherapy patient, received his last chemo in the past couple of weeks and has had pancytopenia in the past. Sodium 137, potassium 3.9, chloride 100, CO2 is 30 BUN 15, creatinine 0.8. Patient's glucose is normal at 96. TSH is normal. Pending the results of the urinalysis, the patient will be stable to return home. Suspect his cognition issues or dementia related. He will need follow-up with his primary care doctor for further testing and diagnosis and management. At this time I do not find a reason for admission or further evaluation emergently. Vital Signs: Vital signs: Vital Signs Temperature 98.7 F 06/25/22 20:44 Pulse Rate 90 06/26/22 00:46 Respiratory Rate 16 06/25/22 22:54 Blood Pressure 192/80 06/26/22 00:46 Pulse Oximetry 94 06/26/22 00:46 Oxygen Delivery Me thod 06/25/22 22:54 MDM - Altered Mental Status Medical Decision Making 76-year-old male who comes in with altered mental status. Patient is alert, oriented to self. There is no family at the bedside to give more history. From what is being described per EMS, it sound like the patient has progressive dementia. We will obtain a CT of his head, chest x-ray due to his history of lung cancer as well as laboratory studies. Lab Data 06/25/22 21:21 06/25/22 21:[address] 06/25/22 21:04 IMPRESSION: 1. No acute intracranial abnormality. 2. Moderate age-related changes. Overall, no significant change from about 5 weeks ago. Chest X-Ray 06/25/22 21:26 IMPRESSION: 1. Stable chest, no acute process. 2. No significant change from 05/20/2022. See that chest CT report for those details. Laboratory Results WBC 4.0 10^3/uL (4.0-10.0) 06/25/22 21:21 RBC 3.09 10^6/uL (4.1-5.3) L 06/25/22 21: Hgb 10.6 g/dL (11.7-16.6) L 06/25/22 21: Hct 32.9 % (42.0-52.0) L 06/25/22 21: MCV 106.5 fl (80-94) H 06/25/22 21: MCH 34.3 pg (28.0-34.0) H 06/25/22 21: MCHC 32.2 g/dL (30.0-36.0) 06/25/22 21: RDW 14.9 % (12.1-15.1) 06/25/22 21: Plt Count 83 10^3/cmm (130-400) L 06/25/22 21:21 MPV 10.6 fL (7.4-10.4) H 06/25/22 21: Neut % (Auto) 58.4 % 06/25/22 21: Lymph % (Auto) 20.1 % 06/25/22 21:21 [place] % (Auto) 13.4 % 06/25/22 21: Eos % (Auto) 7.9 % 06/25/22 21: Baso % (Auto) 0.2 % 06/25/22 21: Neut # (Auto) 2.35 10^3/uL (1.8-7.7) 06/25/22 21:21 Lymph # (Auto) 0.8 10^3/uL (0.8-4.8) 06/25/22 21:21 [place] # (Auto) 0.5 10^3/uL (0.2-0.9) 06/25/22 21:21 Eos # (Auto) 0.3 10^3/uL (0.0-0.8) 06/25/22 21:21 Baso # (Auto) 0.0 10^3/uL (0.0-0.1) 06/25/22 21:21 Nucleated RBC % (auto) 0 % 06/25/22 21:21 Nucleated RBCs # 0.0 /100WBC 06/25/22 21:21 Sodium 137 mmol/L (136-145) 06/25/22 21:21 Potassium 3.9 mmol/L (3.5-5.1) 06/25/22 21:21 Chloride 100 mmol/L (98-107) 06/25/22 21:21 Carbon Dioxide 30 mmol/L (22-29) H 06/25/22 21:21 Anion Gap 10.9 (5-19) 06/25/22 21:21 BUN 15 mg/dL (8-23) 06/25/22 21:21 Creatinine 0.8 mg/dL (0.7-1.2) 06/25/22 21:21 GFR Calculation Not Reportable 06/25/22 21:21 Glucose 96 mg/dL (65-115) 06/25/22 21:21 POC Glucose 102 mg/dL (70-110) 06/25/22 21:18 Calculated Osmolality 285 mOsm/kg (285-295) 06/25/22 21:21 Calcium 8.8 mg/dL (8.5-10.5) 06/25/22 21:21 Magnesium 1.9 mg/dL (1.7-2.3) 06/25/22 21:21 Total Bilirubin 0.2 mg/dL (0.15-1.2) 06/25/22 21:21 AST 13 U/L (0-40) 06/25/22 21:21 ALT < 5 U/L (0-41) 06/25/22 21:21 Alkaline Phosphatase 107 U/L (40-130) 06/25/22 21:21 Total Protein 6.8 g/dL (6.6-8.7) 06/25/22 21:21 Albumin 3.5 g/dL (3.5-5.2) 06/25/22 21:21 Globulin 3.3 g/dL (1.3-4.6) 06/25/22 21:21 TSH 1.72 uIU/mL (0.27-4.20) 06/25/22 21:21 Urine Color Yellow (Yellow) 06/25/22 22:59 Urine Appearance Clear (CLEAR) 06/25/22 22:59 Urine pH 5 (5-7) 06/25/22 22:59 Ur Specific [place] 1.020 (1.005-1.030) 06/25/22 22:59 Urine Protein Neg (Negative) 06/25/22 22:59 Urine Glucose (UA) Norm (Normal) 06/25/22 22:59 Urine Ketones Negative (Negative) 06/25/22 22:59 Urine Blood Neg (Negative) 06/25/22 22:59 Urine Nitrate Negative (Negative) 06/25/22 22:59 Urine Bilirubin Neg (Negative) 06/25/22 22:59 Urine Urobilinogen Norm mg/dL (Negative) 06/25/22 22:59 Ur Leukocyte Esterase Negative (Negative) 06/25/22 22:59 Salicylates < 0.3 mg/dL (3-10) L 06/25/22 21:21 Urine Opiates Screen Negative ng/mL (Negative) 06/25/22 22:59 Acetaminophen < 5.0 ug/mL (10-30) L 06/25/22 21:21 Ur Barbiturates Screen Negative ng/mL (Negative) 06/25/22 22:59 Ur Phencyclidine Scrn Negative ng/mL (Negative) 06/25/22 22:59 Ur Amphetamines Screen Negative ng/mL (Negative) 06/25/22 22:59 U Benzodiazepines Scrn Negative ng/mL (Negative) 06/25/22 22:59 Urine Cocaine Screen Negative ng/mL (Negative) 06/25/22 22:59 U Marijuana (THC) Screen Negative ng/mL (Negative) 06/25/22 22:59 Ethyl Alcohol < 10 mg/dL (0-10) 06/25/22 21:21 EKG Data EKG 1: I personally reviewed and interpreted this EKG as follows: EKG interpretation date: 06/25/22 EKG interpretation time: 21:46 Interpretation: Normal sinus rhythm, no acute ischemic ST elevation or depression or T wave changes. Discharge Plan Discharge Patient Disposition: Home Clinical Impression: Dementia, Hypertension Condition: Stable Prescriptions: New metoprolol succinate 25 mg tablet extended release 24 hr 25 mg PO DAILY Qty: 30 0RF No Action paroxetine HCl [Paxil] 40 mg tablet 40 mg PO DAILY (DME) nebulizer accessories Kit See Rx Instructions .Route Qty: 1 0RF Rx Instructions: As directed (DME) nebulizer and compressor Device See Rx Instructions .Route Qty: 1 0RF Rx Instructions: As directed ipratropium-albuterol 0.5 mg-3 mg(2.5 mg base)/3 mL solution for nebulization 3 ml inhalation QID PRN (Reason: wheezing) Qty: 180 0RF hydrocodone-acetaminophen 5-325 mg tablet 1 - 2 tab PO DAILY PRN (Reason: pain) 30 Days Qty: 60 0RF potassium chloride 10 mEq capsule, extended release 10 meq PO DAILY Qty: 30 2RF cyanocobalamin (vitamin B-12) 1,000 mcg/mL kit 1,000 mcg SUBCUT DAILY 7 Days Qty: 9 0RF Rx Instructions: 1000mg dailyx3, 1000mg weeklyx3, 1000mg monthly thereafter (DME) safety needles 25 gauge x 5/8 needle See Rx Instructions .Route Qty: 50 0RF Rx Instructions: As directed with B12 injections Discharge Orders: Discharge ED (Routine); Ordered 06/26/22 Ordered By: Colette Maurice Referrals: Kyle Thompson MD [Primary Care Provider] - Discharge Diet: Advance as tolerated Discharge Activity: Resume usual activity Patient Instructions: Dementia (ED), Hypertension (ED) Activity Restrictions/Additional Instructions: Follow-up with your primary care doctor for further testing and treatment Coding Level of Care Code 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 Documented by User: Colette Maurice MD 06/26/22 00:52 HPI - Altered Mental Status General: Chief Complaint: Altered Mental Status Stated Complaint: AMS Time Seen by Provider: 06/25/22 21:03 PFSH ED PFSH: Medical History Bradycardia Cognitive dysfunction COPD (chronic obstructive pulmonary disease) Degenerative arthritis Hypertension Sleep apnea Type 2 diabetes mellitus Surgical History History of ankle surgery Open reduction for right ankle fracture History of bronchoscopy (01/01/22) Bronchoscopy with EBUS and FNA biopsy of lymph nodes History of cholecystectomy 2020 [place], [place] Hx of total knee arthroplasty Right knee Port-A-Cath in place (01/24/22) Family History Mother Hypertension Myocardial infarction CAD (coronary artery disease) Cancer Son Diabetes Grandmother Diabetes Other Hyperlipidemia Lung disease Denies family history of Clotting disorder Dementia Psychiatric illness Chronic kidney disease (CKD) Suicide Anesthesia complication Bleeding disorder Stroke Social History Smoking and tobacco status: former smoker (Quit smoking 2004, smoked for 13 years) Quit status (tobacco): has quit using tobacco Year quit tobacco: 1972 Former quit date comment: 1.5 ppd X 10 years Alcohol intake: current Course Vital Signs: Vital signs: Vital Signs Temperature 98.7 F 06/25/22 20:44 Pulse Rate 90 06/26/22 00:46 Respiratory Rate 16 06/25/22 22:54 Blood Pressure 192/80 06/26/22 00:46 Pulse Oximetry 94 06/26/22 00:46 Oxygen Delivery Me thod 06/25/22 22:54 MDM - Altered Mental Status Medical Decision Making 76-year-old male who comes in with altered mental status. Patient is alert, devon ented to self. There is no family at the bedside to give more history. From what is being described per EMS, it sound like the patient has progressive dementia. We will obtain a CT of his head, chest x-ray due to his history of lung cancer as well as laboratory studies. Patient presents here with dementia along with hypertension he is at his baseline currently likely has ongoing dementia causing his confusion took patient over pending his urinalysis which was normal his blood pressure is impr feliciano we will start him on blood pressure meds have him follow-up with PCP and return if worsening. Lab Data 06/25/22 21:21 06/25/22 21:[address] 06/25/22 21:04 IMPRESSION: 1. No acute intracranial abnormality. 2. Moderate age-related changes. Overall, no significant change from about 5 weeks ago. Chest X-Ray 06/25/22 21:26 IMPRESSION: 1. Stable chest, no acute process. 2. No significant change from 05/20/2022. See that chest CT report for those details. Laboratory Results WBC 4.0 10^3/uL (4.0-10.0) 06/25/22 21:21 RBC 3.09 10^6/uL (4.1-5.3) L 06/25/22 21: Hgb 10.6 g/dL (11.7-16.6) L 06/25/22 21: Hct 32.9 % (42.0-52.0) L 06/25/22 21: MCV 106.5 fl (80-94) H 06/25/22 21: MCH 34.3 pg (28.0-34.0) H 06/25/22 21:21 MCHC 32.2 g/dL (30.0-36.0) 06/25/22 21: RDW 14.9 % (12.1-15.1) 06/25/22 21: Plt Count 83 10^3/cmm (130-400) L 06/25/22 21:21 MPV 10.6 fL (7.4-10.4) H 06/25/22 21: Neut % (Auto) 58.4 % 06/25/22 21: Lymph % (Auto) 20.1 % 06/25/22 21:21 [place] % (Auto) 13.4 % 06/25/22 21: Eos % (Auto) 7.9 % 06/25/22 21: Baso % (Auto) 0.2 % 06/25/22 21: Neut # (Auto) 2.35 10^3/uL (1.8-7.7) 06/25/22 21:21 Lymph # (Auto) 0.8 10^3/uL (0.8-4.8) 06/25/22 21: [place] # (Auto) 0.5 10^3/uL (0.2-0.9) 06/25/22 21:21 Eos # (Auto) 0.3 10^3/uL (0.0-0.8) 06/25/22 21:21 Baso # (Auto) 0.0 10^3/uL (0.0-0.1) 06/25/22 21:21 Nucleated RBC % (auto) 0 % 06/25/22 21:21 Nucleated RBCs # 0.0 /100WBC 06/25/22 21:21 Sodium 137 mmol/L (136-145) 06/25/22 21:21 Potassium 3.9 mmol/L (3.5-5.1) 06/25/22 21:21 Chloride 100 mmol/L (98-107) 06/25/22 21:21 Carbon Dioxide 30 mmol/L (22-29) H 06/25/22 21:21 Anion Gap 10.9 (5-19) 06/25/22 21:21 BUN 15 mg/dL (8-23) 06/25/22 21:21 Creatinine 0.8 mg/dL (0.7-1.2) 06/25/22 21:21 GFR Calculation Not Reportable 06/25/22 21:21 Glucose 96 mg/dL (65-115) 06/25/22 21:21 POC Glucose 102 mg/dL (70-110) 06/25/22 21:18 Calculated Osmolality 285 mOsm/kg (285-295) 06/25/22 21:21 Calcium 8.8 mg/dL (8.5-10.5) 06/25/22 21:21 Magnesium 1.9 mg/dL (1.7-2.3) 06/25/22 21:21 Total Bilirubin 0.2 mg/dL (0.15-1.2) 06/25/22 21:21 AST 13 U/L (0-40) 06/25/22 21:21 ALT < 5 U/L (0-41) 06/25/22 21:21 Alkaline Phosphatase 107 U/L (40-130) 06/25/22 21:21 Total Protein 6.8 g/dL (6.6-8.7) 06/25/22 21:21 Albumin 3.5 g/dL (3.5-5.2) 06/25/22 21:21 Globulin 3.3 g/dL (1.3-4.6) 06/25/22 21:21 TSH 1.72 uIU/mL (0.27-4.20) 06/25/22 21:21 Urine Color Yellow (Yellow) 06/25/22 22:59 Urine Appearance Clear (CLEAR) 06/25/22 22:59 Urine pH 5 (5-7) 06/25/22 22:59 Ur Specific [place] 1.020 (1.005-1.030) 06/25/22 22:59 Urine Protein Neg (Negative) 06/25/22 22:59 Urine Glucose (UA) Norm (Normal) 06/25/22 22:59 Urine Ketones Negative (Negative) 06/25/22 22:59 Urine Blood Neg (Negative) 06/25/22 22:59 Urine Nitrate Negative (Negative) 06/25/22 22:59 Urine Bilirubin Neg (Negative) 06/25/22 22:59 Urine Urobilinogen Norm mg/dL (Negative) 06/25/22 22:59 Ur Leukocyte Esterase Negative (Negative) 06/25/22 22:59 Salicylates < 0.3 mg/dL (3-10) L 06/25/22 21:21 Urine Opiates Screen Negative ng/mL (Negative) 06/25/22 22:59 Acetaminophen < 5.0 ug/mL (10-30) L 06/25/22 21:21 Ur Barbiturates Screen Negative ng/mL (Negative) 06/25/22 22:59 Ur Phencyclidine Scrn Negative ng/mL (Negative) 06/25/22 22:59 Ur Amphetamines Screen Negative ng/mL (Negative) 06/25/22 22:59 U Benzodiazepines Scrn Negative ng/mL (Negative) 06/25/22 22:59 Urine Cocaine Screen Negative ng/mL (Negative) 06/25/22 22:59 U Marijuana (THC) Screen Negative ng/mL (Negative) 06/25/22 22:59 Ethyl Alcohol < 10 mg/dL (0-10) 06/25/22 21:21 Discharge Plan Discharge Patient Disposition: Home Clinical Impression: Dementia, Hypertension Condition: Stable Prescriptions: New metoprolol succinate 25 mg tablet extended release 24 hr 25 mg PO DAILY Qty: 30 0RF No Action paroxetine HCl [Paxil] 40 mg tablet 40 mg PO DAILY (DME) nebulizer accessories Kit See Rx Instructions .Route Qty: 1 0RF Rx Instructions: As directed (DME) nebulizer and compressor Device See Rx Instructions .Route Qty: 1 0RF Rx Instructions: As directed ipratropium-albuterol 0.5 mg-3 mg(2.5 mg base)/3 mL solution for nebulization 3 ml inhalation QID PRN (Reason: wheezing) Qty: 180 0RF hydrocodone-acetaminophen 5-325 mg tablet 1 - 2 tab PO DAILY PRN (Reason: pain) 30 Days Qty: 60 0RF potassium chloride 10 mEq capsule, extended release 10 meq PO DAILY Qty: 30 2RF cyanocobalamin (vitamin B-12) 1,000 mcg/mL kit 1,000 mcg SUBCUT DAILY 7 Days Qty: 9 0RF Rx Instructions: 1000mg dailyx3, 1000mg weeklyx3, 1000mg monthly thereafter (DME) safety needles 25 gauge x 5/8 needle See Rx Instructions .Route Qty: 50 0RF Rx Instructions: As directed with B12 injections Discharge Orders: Discharge ED (Routine); Ordered 06/26/22 Ordered By: Colette Maurice Referrals: Kyle Thompson MD [Primary Care Provider] - Discharge Diet: Advance as tolerated Discharge Activity: Resume usual activity Patient Instructions: Dementia (ED), Hypertension (ED) Activity Restrictions/Additional Instructions: Follow-up with your primary care doctor for further testing and treatment Coding Level of Care Code 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
--- NOTE | 2022-06-25 21:04 | CTR_ITS ---
PROCEDURE INFORMATION: Exam: CT Head Without Contrast Exam date and time: 06/25/2022 9:22 PM Age: 76 years old Clinical indication: Altered mental status/memory loss; Patient HX: Per , increasing AMS over last few weeks. Currently on chemotherapy for lung cancer. History of dementia. TECHNIQUE: Imaging protocol: Computed tomography of the head without contrast. Radiation optimization: All CT scans at this facility use at least one of these dose optimization techniques: automated exposure control; mA and/or kV adjustment per patient size (includes targeted exams where dose is matched to clinical indication); or iterative reconstruction. COMPARISON: MR head wo/w con [id number] 05/22/2022 11:15 AM RADIATION DOSE METRICS: Total DLP (mGy-cm): 1212.78 FINDINGS: Brain: No focal hemorrhage or midline shift is identified. The ventricles and parenchyma show moderate atrophy and chronic bicerebral white matter ischemic change. Cerebral ventricles: No ventriculomegaly or evidence of hydrocephalus. Paranasal sinuses: No evidence of acute sinusitis. Mastoid air cells: Visualized mastoid air cells are well aerated. Bones/joints: No displaced skull fracture is noted. Soft tissues: Unremarkable. Vasculature: Advanced diffuse vascular calcification noted. CT/CT head wo con* [id number] IMPRESSION: 1. No acute intracranial abnormality. 2. Moderate age-related changes. Overall, no significant change from about 5 weeks ago.
--- NOTE | 2022-06-25 21:13 | ECG_ITS ---
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 Measurements Intervals [place] Rate: 85 P: 0 RI: 0 QRS: 43 QRSD: 90 T: 56 QT: 376 QTc: 447 Interpretive Statements Possibly normal sinus rhythm ABNORMAL RHYTHM ECG Compared to ECG 03/29/2022 18:38:52 Sinus tachycardia no longer present ST (T wave) deviation no longer present Electronically Signed On 06-27-2022 20:55:50 ORDER TAKER by Eugenio Olson M.D. [id number]
[2022-06-25 21:21] LABS: Glucose Point of Care 102 mg/dL (70-110)
--- NOTE | 2022-06-25 21:26 | XRR_ITS ---
PROCEDURE INFORMATION: Exam: XR Chest Exam date and time: 06/25/2022 9:31 PM Age: 76 years old Clinical indication: Prior surgery; Surgery type: Chest port; Patient HX: Per . having increasing AMS for last few weeks. Currently on chemotherapy for lung cancer. ; Additional info: Altered mental status TECHNIQUE: Imaging protocol: Radiologic exam of the chest. Views: 1 view. COMPARISON: CT chest abd pel w con* 05/20/2022 1:04 PM FINDINGS: Tubes, catheters and devices: Left subclavian port in place. Lungs: A few minute calcified lung nodules are seen incidentally. Advanced emphysema. No consolidation. Minor lung base atelectasis. Pleural spaces: Possible small right effusion. No pneumothorax. Heart/Mediastinum: Unremarkable. No cardiomegaly. Bones/joints: Unremarkable. XR/XR chest 1V portable [id number] IMPRESSION: 1. Stable chest, no acute process. 2. No significant change from 05/20/2022. See that chest CT report for those details.
[2022-06-25 21:27] LABS: Basophils % 0.2 %; Eosinophils # 0.3 10^3/uL (0.0-0.8); Eosinophils % 7.9 %; Hematocrit 32.9 % (42.0-52.0); Hemoglobin 10.6 g/dL (11.7-16.6); Lymphocytes # 0.8 10^3/uL (0.8-4.8); Lymphocytes % 20.1 %; Mean Corpuscular HGB Conc 32.2 g/dL (30.0-36.0); Mean Corpuscular Hemoglobin 34.3 pg (28.0-34.0); Mean Corpuscular Volume 106.5 fl (80-94); Mean Platelet Volume 10.6 fL (7.4-10.4); Monocytes # 0.5 10^3/uL (0.2-0.9); Monocytes % 13.4 %; Neutrophils # 2.35 10^3/uL (1.8-7.7); Neutrophils % 58.4 %; Nucleated Red Blood Cells % 0 %; Platelet Count 83 10^3/cmm (130-400); Red Blood Count 3.09 10^6/uL (4.1-5.3); Red Cell Distribution Width 14.9 % (12.1-15.1)
--- NOTE | 2022-06-25 21:44 | PC.NURSE ---
pt Shanon Merritt [phone]
[2022-06-25 21:58] LABS: Alanine Aminotransferase < 5 U/L (0-41); Albumin Level 3.5 g/dL (3.5-5.2); Alkaline Phosphatase 107 U/L (40-130); Anion Gap 10.9 (5-19); Aspartate Amino Transferase 13 U/L (0-40); Blood Urea Nitrogen 15 mg/dL (8-23); Calcium 8.8 mg/dL (8.5-10.5); Carbon Dioxide 30 mmol/L (22-29); Chloride 100 mmol/L (98-107); Globulin 3.3 g/dL (1.3-4.6); Glucose 96 mg/dL (65-115); Magnesium 1.9 mg/dL (1.7-2.3); Osmolality Calculated 285 mOsm/kg (285-295); Potassium 3.9 mmol/L (3.5-5.1); Sodium 137 mmol/L (136-145); Thyroid Stimulating Hormone 1.72 uIU/mL (0.27-4.20); Total Bilirubin 0.2 mg/dL (0.15-1.2); Total Protein 6.8 g/dL (6.6-8.7)
[2022-06-25 22:07] LABS: Acetaminophen < 5.0 ug/mL (10-30); Alcohol Level < 10 mg/dL (0-10); Salicylate < 0.3 mg/dL (3-10)
[2022-06-25 22:54] VITALS: BP 198/106; PULSE 93; RESP 16; O2SAT 97
[2022-06-25 23:06] LABS: Add Urine Microscopic? NO; Charge for UA Resulting for Rev
[2022-06-25 23:19] LABS: Amphetamines Screen Urine Negative (Negative); Barbiturates Screen Urine Negative (Negative); Benzodiazepines Screen Urine Negative (Negative); Cocaine Screen Urine Negative (Negative); Opiate Screen Urine Negative (Negative); PCP Screen Urine Negative (Negative); THC Screen Urine Negative (Negative)
[2022-06-25 23:24] LABS: Bilirubin Urine Neg (Negative); Blood Urine Neg (Negative); Glucose Urine UA Norm (Normal); Ketones Urine Negative (Negative); Leukocyte Esterase Urine Negative (Negative); Nitrate Urine Negative (Negative); Protein Urine Neg (Negative); Urine Appearance Clear (CLEAR); Urine Color Yellow (Yellow); Urobilinogen Urine Norm (Negative); pH Urine 5 (5-7)
[2022-06-25] MEDS: hyDRALAzine 20 mg/mL INJ 1 mL 10 MG IVP (23:40)
[2022-06-26 00:46] VITALS: BP 192/80; PULSE 90; O2SAT 94
== END 2022-06-26 00:48 | disposition home or self-care (01) ==
PROVIDERS: Emergency Medicine; Emergency Provider Emergency Medicine; PCP Family Medicine
DX: F03.90 Unspecified dementia, unspecified severity, without behavioral disturbance, psychotic disturbance, mood disturbance, and anxiety (principal); I10 Essential (primary) hypertension; Z87.891 Personal history of nicotine dependence; J44.9 Chronic obstructive pulmonary disease, unspecified; E11.9 Type 2 diabetes mellitus without complications
CPT/HCPCS: 36416; 70450; 71045; 80053; 80306; 80307; 81003; 82962; 83735; 84443; 85025; 93005; 96374; 99285; J0360

== ENCOUNTER 2022-08-16 17:53 | Inpatient (IN) | payer MEDICARE, SELFPAY ==
[2022-08-16 18:08] VITALS: BP 173/8; PULSE 96; RESP 16; TEMP 36.9; O2SAT 91; BMI 24.7
--- NOTE | 2022-08-16 18:17 | XRR_ITS ---
PROCEDURE INFORMATION: Exam: XR Chest Exam date and time: 08/16/2022 6:31 PM Age: 76 years old Clinical indication: Shortness of breath; Prior surgery; Surgery date: 6+ months; Surgery type: Port; Additional info: SOB TECHNIQUE: Imaging protocol: Radiologic exam of the chest. Views: 1 view. COMPARISON: CR (CHEST, ) 06/25/2022 9:31 PM FINDINGS: Limitations: Patient is rotated towards the right. Tubes, catheters and devices: Infusion port catheter is in place with its tip in the superior vena cava. Lungs: Visualized portions of the left lung are clear. Small calcified granulomas are present in both lungs. Pleural spaces: There is small right pleural effusion. There is some infiltrate or atelectasis at the right lung base new from the previous exam. Heart/Mediastinum: Heart is within normal limits of size. Bones/joints: Unremarkable. XR/XR chest 1V portable [id number] IMPRESSION: New right basilar infiltrate or atelectasis and small right pleural effusion.
[2022-08-16 18:34] LABS: Basophils % 0.4 %; Eosinophils # 0.3 10^3/uL (0.0-0.8); Hematocrit 34.5 % (42.0-52.0); Lymphocytes # 0.9 10^3/uL (0.8-4.8); Mean Corpuscular HGB Conc 31.9 g/dL (30.0-36.0); Mean Corpuscular Hemoglobin 33.5 pg (28.0-34.0); Mean Corpuscular Volume 105.2 fl (80-94); Mean Platelet Volume 10.9 fL (7.4-10.4); Monocytes # 1.2 10^3/uL (0.2-0.9); Neutrophils # 7.52 10^3/uL (1.8-7.7); Neutrophils % 75.3 %; Nucleated Red Blood Cells % 0 %; Platelet Count 161 10^3/cmm (130-400); Red Blood Count 3.28 10^6/uL (4.1-5.3); Red Cell Distribution Width 14.3 % (12.1-15.1)
[2022-08-16] MEDS: sodium chloride 0.9% 1,000 ML 999 ML IV (18:43)
[2022-08-16 18:48] LABS: Glucose Point of Care 122 mg/dL (70-110)
[2022-08-16 19:08] LABS: Troponin(5th) Baseline 50 ng/L (0-15)
[2022-08-16 19:10] LABS: INR 1.13 (0.8-1.2)
[2022-08-16 19:13] LABS: D Dimer 2.88 ug/mIFEU (0-0.59)
[2022-08-16 19:15] LABS: Alanine Aminotransferase < 5 U/L (0-41); Albumin Level 3.5 g/dL (3.5-5.2); Alkaline Phosphatase 105 U/L (40-130); Blood Urea Nitrogen 13 mg/dL (8-23); Calcium 8.8 mg/dL (8.5-10.5); Carbon Dioxide 28 mmol/L (22-29); Chloride 97 mmol/L (98-107); Creatinine Clr Calc Pharmacy 85.8827; Globulin 3.3 g/dL (1.3-4.6); Glucose 116 mg/dL (65-115); NT Pro B Type Natriuretic Pept 675 pg/mL (0-450); Osmolality Calculated 281 mOsm/kg (285-295); Sodium 135 mmol/L (136-145); Total Bilirubin 0.7 mg/dL (0.15-1.2); Total Protein 6.8 g/dL (6.6-8.7)
--- NOTE | 2022-08-16 19:16 | ECG_ITS ---
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 Measurements Intervals [place] Rate: 84 P: 243 NV: 137 QRS: 190 QRSD: 98 T: 133 QT: 394 QTc: 467 Interpretive Statements Possible sinus rhythm with supraventricular ectopics POSSIBLE RIGHT VENTRICULAR HYPERTROPHY [SOME/ALL OF: PROMINENT R IN V1, LATE TRANSITION, RAD, JOSE ALEJANDRO, SSS] NONSPECIFIC T-WAVE ABNORMALITY Compared to ECG 06/25/2022 21:13:29 Junctional rhythm now present Ventricular premature complex(es) now present T-wave abnormality now present Sinus rhythm no longer present Electronically Signed On 08-17-2022 19:29:54 SPECIALTY COOK by Eugenio Olson M.D. [id number]
[2022-08-16 19:21] LABS: Anion Gap 13.9 (5-19); Aspartate Amino Transferase 21 U/L (0-40); Potassium 3.9 mmol/L (3.5-5.1)
--- NOTE | 2022-08-16 19:21 | CTR_ITS ---
PROCEDURE INFORMATION: Exam: CTA Chest With Contrast Exam date and time: 08/16/2022 8:51 PM Age: 76 years old Clinical indication: Shortness of breath; Prior surgery; Surgery date: 1-6 months; Surgery type: Port; Additional info: SOB TECHNIQUE: Imaging protocol: Computed tomographic angiography of the chest with contrast. 3D rendering (Not supervised by radiologist): MIP and/or 3D reconstructed images were created by the technologist. Radiation optimization: All CT scans at this facility use at least one of these dose optimization techniques: automated exposure control; mA and/or kV adjustment per patient size (includes targeted exams where dose is matched to clinical indication); or iterative reconstruction. Contrast material: OMNI 350; Contrast volume: 100 ml; Contrast route: INTRAVENOUS (IV); Other protocol: This patient has received 7 known CTs and 0 known cardiac nuclear medicine studies in the 12 months prior to the current study. COMPARISON: CT angio chest PE protcl [id number] 03/29/2022 10:01 PM RADIATION DOSE METRICS: Total DLP (mGy-cm): 433.51 FINDINGS: Tubes, catheters and devices: Infusion port catheter is in place with its tip in the superior vena cava. Pulmonary arteries: There is no evidence of filling defects within the pulmonary arterial circulation to suggest pulmonary embolism. Aorta: There is atherosclerotic calcification of the aortic arch and descending thoracic aorta. There is no thoracic aortic aneurysm or dissection. Lungs: There are findings of pulmonary emphysema not significantly changed with peripheral blebs in the upper lobes. There are calcified granulomas in both lungs. There is some compressive atelectasis of the right lower lobe. Pleural spaces: There is a large right pleural effusion. Heart: There is mild pericardial thickening, mostly anteriorly and towards the right. Lymph nodes: There are multiple round and oval nodules in the right cardiophrenic fat pad measuring up to 19 mm, worrisome for cardiophrenic adenopathy. Bones/joints: There is degenerative change in the right shoulder. The thoracic spine demonstrates moderate degenerative changes at multiple levels. Soft tissues: Mild gynecomastia CT/CT angio chest PE protcl [id number] IMPRESSION: 1. No evidence of pulmonary embolism. 2. Large right pleural effusion. 3. New right cardiophrenic adenopathy 4. Right basilar atelectasis 5. Pulmonary emphysema not significantly changed 6. Old granulomatous disease. COMMENTS: In the absence of a history or active diagnosis of lung cancer, it is recommended that this patient with emphysema be evaluated for enrollment in a low dose CT lung cancer screening program.
--- NOTE | 2022-08-16 19:23 | W.ED.WEAKNES ---
HPI - Weakness General: Chief complaint: Weakness Stated complaint: WEAKNESS/ SOB Time Seen by Provider: 08/16/22 18:05 Source: patient Mode of arrival: ambulatory Limitations: no limitations History of Present Illness: 76-year-old male has a history of small cell lung cancer he had finished chemo and radiation roughly 2 months ago he states that over the last 2 to 3 days has been having some increasing shortness of breath along with weakness he states that today has been so weak he has not been able to get out of bed or ambulate and states he just feels short of breath with slight cough he denies any fever denies any chest pain denies any worsening proving factors. Associated symptoms: Denies chest pain, dysuria, easy bruising, headache(s), nausea or vomiting Review of Systems Const: Reports: fatigue and malaise Eyes: Denies: blurry vision or eye discomfort ENMT: Denies: throat pain or dental pain Card: Denies: chest pain Resp: Reports: dyspnea and non-productive cough GI: Denies: abdominal pain, nausea, vomiting or diarrhea : Denies: dysuria Musc: Denies: neck pain or back pain Skin/Breast: Denies: rash Neuro: Denies: headache(s) Psych: Denies: depression Andrew/Lymph: Denies: easy bruising All/Imm: Denies: urticaria PFSH ED PFSH: Medical History Bradycardia Cognitive dysfunction COPD (chronic obstructive pulmonary disease) Degenerative arthritis Hypertension Sleep apnea Type 2 diabetes mellitus Surgical History History of ankle surgery Open reduction for right ankle fracture History of bronchoscopy (01/01/22) Bronchoscopy with EBUS and FNA biopsy of lymph nodes History of cholecystectomy 2020 [place], [place] Hx of total knee arthroplasty Right knee Port-A-Cath in place (01/24/22) Family History Mother Hypertension Myocardial infarction CAD (coronary artery disease) Cancer Son Diabetes Grandmother Diabetes Other Hyperlipidemia Lung disease Denies family history of Clotting disorder Dementia Psychiatric illness Chronic kidney disease (CKD) Suicide Anesthesia complication Bleeding disorder Stroke Social History Smoking and tobacco status: former smoker (Quit smoking 2004, smoked for 13 years) Quit status (tobacco): has quit using tobacco Year quit tobacco: 1972 Former quit date comment: 1.5 ppd X 10 years Alcohol intake: current Physical Exam Const: COMMON NORMALS: patient oriented x3 GENERAL APPEARANCE: ill appearing HENMT: COMMON NORMALS: normocephalic and atraumatic HEAD & SCALP: normocephalic and atraumatic Eye: COMMON NORMALS: Equal, round and reactive pupils present and EOMs intact bilaterally PUPIL: Yes Equal, round and reactive pupils present Neck/C-Spine: COMMON NORMALS: full ROM and supple Chest: COMMONS NORMALS: normal inspection of the chest and normal palpation of entire chest wall Resp: COMMON NORMALS: normal respiratory effort, No retractions, No use of accessory muscles and clear to auscultation bilaterally AUSCULTATION: clear to auscultation bilaterally Cardio: COMMON NORMALS: regular rate, regular rhythm and No murmurs present (Cardio) RATE: regular rate RHYTHM: regular rhythm GI: COMMON NORMALS: Normal to inspection, nondistended, normoactive bowel sounds present, Soft to palpation, non-tender and no masses PALPATION: Yes Soft to palpation Extremity: COMMON NORMALS: normal to inspection and full ROM Neuro: COMMON NORMALS: patient oriented x3, moves all extremities and no focal motor deficits Psych: COMMON NORMALS: mental status grossly normal, Normal thought process present and cooperative THOUGHT PROCESS: Normal thought process present Skin: COMMON NORMALS: no rashes or lesions noted and no wounds GENERAL SKIN EXAM: no rashes or lesions noted Course Vital Signs: Vital signs: Vital Signs Temperature 98.4 F 08/16/22 18:08 Pulse Rate 96 08/16/22 18:08 Respiratory Rate 16 08/16/22 18:08 Blood Pressure 173/8 08/16/22 18:08 Pulse Oximetry 91 08/16/22 18:08 Oxygen Delivery Me thod 08/16/22 18:08 MDM - Weakness Medical Decision Making Patient presents here with dyspnea he does have a pleural effusion on his CT scan he also has weakness he is unable to ambulate here due to his severe weakness spoke to the hospitalist will admit at this time. Lab Data 08/16/22 17:15 08/16/22 17:15 Radiology Impressions Chest X-Ray 08/16/22 18:17 IMPRESSION: New right basilar infiltrate or atelectasis and small right pleural effusion. Chest CTA 08/16/22 19:21 IMPRESSION: 1. No evidence of pulmonary embolism. 2. Large right pleural effusion. 3. New right cardiophrenic adenopathy 4. Right basilar atelectasis 5. Pulmonary emphysema not significantly changed 6. Old granulomatous disease. COMMENTS: In the absence of a history or active diagnosis of lung cancer, it is recommended that this patient with emphysema be evaluated for enrollment in a low dose CT lung cancer screening program. Laboratory Results WBC 10.0 10^3/uL (4.0-10.0) 08/16/22 17:15 RBC 3.28 10^6/uL (4.1-5.3) L 08/16/22 17:15 Hgb 11.0 g/dL (11.7-16.6) L 08/16/22 17:15 Hct 34.5 % (42.0-52.0) L 08/16/22 17:15 MCV 105.2 fl (80-94) H 08/16/22 17:15 MCH 33.5 pg (28.0-34.0) 08/16/22 17:15 MCHC 31.9 g/dL (30.0-36.0) 08/16/22 17:15 RDW 14.3 % (12.1-15.1) 08/16/22 17:15 Plt Count 161 10^3/cmm (130-400) 08/16/22 17:15 MPV 10.9 fL (7.4-10.4) H 08/16/22 17:15 Neut % (Auto) 75.3 % 08/16/22 17:15 Lymph % (Auto) 9.0 % 08/16/22 17:15 [place] % (Auto) 12.0 % 08/16/22 17:15 Eos % (Auto) 3.0 % 08/16/22 17:15 Baso % (Auto) 0.4 % 08/16/22 17:15 Neut # (Auto) 7.52 10^3/uL (1.8-7.7) 08/16/22 17:15 Lymph # (Auto) 0.9 10^3/uL (0.8-4.8) 08/16/22 17:15 [place] # (Auto) 1.2 10^3/uL (0.2-0.9) H 08/16/22 17:15 Eos # (Auto) 0.3 10^3/uL (0.0-0.8) 08/16/22 17:15 Baso # (Auto) 0.0 10^3/uL (0.0-0.1) 08/16/22 17:15 Nucleated RBC % (auto) 0 % 08/16/22 17:15 Nucleated RBCs # 0.0 /100WBC 08/16/22 17:15 PT 14.90 SECONDS (12.1-14.9) 08/16/22 18:40 INR 1.13 (0.8-1.2) 08/16/22 18:40 D-Dimer 2.88 ug/mIFEU (0-0.59) H 08/16/22 18:40 Sodium 135 mmol/L (136-145) L 08/16/22 17:15 Potassium 3.9 mmol/L (3.5-5.1) 08/16/22 17:15 Chloride 97 mmol/L (98-107) L 08/16/22 17:15 Carbon Dioxide 28 mmol/L (22-29) 08/16/22 17:15 Anion Gap 13.9 (5-19) 08/16/22 17:15 BUN 13 mg/dL (8-23) 08/16/22 17:15 Creatinine 0.7 mg/dL (0.7-1.2) 08/16/22 17:15 GFR Calculation Not Reportable 08/16/22 17:15 Glucose 116 mg/dL (65-115) H 08/16/22 17:15 POC Glucose 122 mg/dL (70-110) H 08/16/22 18:41 Calculated Osmolality 281 mOsm/kg (285-295) L 08/16/22 17:15 Calcium 8.8 mg/dL (8.5-10.5) 08/16/22 17:15 Total Bilirubin 0.7 mg/dL (0.15-1.2) 08/16/22 17:15 AST 21 U/L (0-40) 08/16/22 17:15 ALT < 5 U/L (0-41) 08/16/22 17:15 Alkaline Phosphatase 105 U/L (40-130) 08/16/22 17:15 Troponin T Baseline 50 ng/L (0-15) H 08/16/22 17:15 Troponin T 120 Minute 41.81 ng/L (0-15) H 08/16/22 19:40 Delta Troponin T -8.19 ABS# (0-10) L 08/16/22 19:40 NT-Pro-B Natriuret Pep 675 pg/mL (0-450) H 08/16/22 17:15 Total Protein 6.8 g/dL (6.6-8.7) 08/16/22 17:15 Albumin 3.5 g/dL (3.5-5.2) 08/16/22 17:15 Globulin 3.3 g/dL (1.3-4.6) 08/16/22 17:15 Discharge Plan Discharge Patient Disposition: Admitted As Inpatient Clinical Impression: Pleural effusion, Weakness Condition: Stable Prescriptions: No Action paroxetine HCl [Paxil] 40 mg tablet 40 mg PO DAILY (DME) nebulizer accessories Kit See Rx Instructions .Route Qty: 1 0RF Rx Instructions: As directed (DME) nebulizer and compressor Device See Rx Instructions .Route Qty: 1 0RF Rx Instructions: As directed ipratropium-albuterol 0.5 mg-3 mg(2.5 mg base)/3 mL solution for nebulization 3 ml inhalation QID PRN (Reason: wheezing) Qty: 180 0RF hydrocodone-acetaminophen 5-325 mg tablet 1 - 2 tab PO DAILY PRN (Reason: pain) 30 Days Qty: 60 0RF potassium chloride 10 mEq capsule, extended release 10 meq PO DAILY Qty: 30 2RF (DME) safety needles 25 gauge x 5/8 needle See Rx Instructions .Route Qty: 50 0RF Rx Instructions: As directed with B12 injections cyanocobalamin (vitamin B-12) 1,000 mcg/mL solution 1,000 mcg SUBCUT Q30D Qty: 10 1RF metoprolol succinate 25 mg tablet extended release 24 hr 25 mg PO DAILY Qty: 30 0RF Referrals: Kyle Thompson MD [Primary Care Provider] - Coding Level of Care Code ED Supercalender Operator Helper for Chg Fwd
[2022-08-16] MEDS: hyDRALAzine 20 mg/mL INJ 1 mL 10 MG IVP (20:06)
--- NOTE | 2022-08-16 20:13 | ECG_ITS ---
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 Measurements Intervals [place] Rate: 84 P: 94 MO: 167 QRS: 52 QRSD: 97 T: 75 QT: 397 QTc: 469 Interpretive Statements SINUS RHYTHM NONSPECIFIC T-WAVE ABNORMALITY Compared to ECG 08/16/2022 19:16:58 Junctional rhythm no longer present Ventricular premature complex(es) no longer present T-wave abnormality still present Electronically Signed On 08-16-2022 23:18:58 CLOTH BLEACHING RANGE OPERATOR CHIEF by Josette Lee M.D. [id number]
[2022-08-16] MEDS: cefTRIAXone 1,000 MG in sodium chloride 0.9% (plus) 50 ML 100 MG IV (20:17)
[2022-08-16 20:21] LABS: Troponin 5 2HR 41.81 ng/L (0-15)
[2022-08-16] MEDS: azithromycin 500 MG in sodium chloride 0.9% 250 ML 250 MG IV (21:25)
[2022-08-16 22:00] VITALS: PULSE 91
--- NOTE | 2022-08-16 22:05 | P.HP_ITS ---
Providers/Chief Complaint Primary Care Provider: Kyle Thompson MD Chief Complaint: WEAKNESS/ SOB History of Present Illness Rohit Merritt is a 76 year old male past medical history of Ca rt lung completed chemotherapy,as well as radiation therapy 2/3 months back, COPD hypertension, was brought in from home with chief complaint of worsening shortness of breath as well as going on for the last 2 to 3 days, also reports 1 episode of fever with noted Tmax 100, about for 5 days back, is also complaining of chest pain with inspiration, denied any cough, sputum production. In the last couple of days he has also been experiencing significant generalized weakness, worsened to the point that he was having difficulty with ambulation today. CTA chest: Has shown large right-sided pleural effusion, no pulmonary embolism, New right cardiophrenic adenopathy,Right basilar atelectasis, Pulmonary emphysema. Pertinent labs: WBC 10, H&H 11 and 34, PLT : 161 , serum sodium 135 serum potassium 3.9, BUN 13, serum creatinine 0.7, Troponin trend: 50-41 , proBNP 675 Patient received one-time dose of ceftriaxone and azithromycin, as well as 1 L normal saline bolus and hydralazine 10 IV one-time dose in the ER. Review of Systems General: Reports: 10 or more systems reviewed and unremarkable except in HPI and below Const: Reports: fever(s); Denies: chills, body aches or diaphoresis Card: Reports: dyspnea on exertion; Denies: palpitations, edema, swelling of feet/ankles, orthopnea or leg pain with exertion Resp: Reports: dyspnea; Denies: productive cough, wheezing or pain on inspiration GI: Denies: abdominal pain, nausea, vomiting, diarrhea or constipation : Denies: flank pain or difficulty urinating Musc: Denies: back pain, extremity pain or extremity swelling Neuro: Reports: difficulty walking; Denies: headache(s) or confusion Medications/Allergies Home Medications Medication Instructions Recorded Confirmed Last Taken Type paroxetine HCl 40 mg tablet (Paxil) 40 mg PO DAILY 01/28/22 06/10/22 03/27/22 08:00 History hydrocodone 5 mg-acetaminophen 325 1 - 2 tab PO DAILY PRN pain 30 04/03/22 06/10/22 Unknown Rx mg tablet days #60 tabs ipratropium 0.5 mg-albuterol 3 mg 3 ml inhalation QID PRN wheezing 10/05/22 12/12/22 Unknown Rx (2.5 mg base)/3 mL nebulization #180 mL soln nebulizer accessories #1 ea 04/03/22 06/10/22 Unknown Rx nebulizer and compressor #1 ea 04/03/22 06/10/22 Unknown Rx potassium chloride 10 mEq 10 meq PO DAILY #30 caps 04/15/22 06/10/22 Unknown Rx capsule,extended release safety needles 25 gauge x 5/8 #50 ea 06/17/22 Unknown Rx metoprolol succinate 25 mg 25 mg PO DAILY #30 tabs 06/26/22 Unknown Rx tablet,extended release 24 hr cyanocobalamin (vitamin B-12) 1,000 mcg SUBCUT Q30D #10 mL 07/15/22 Unknown Rx 1,000 mcg/mL injection solution Allergies Allergy/AdvReac Type Severity Reaction Status Date / Time No Known Drug Allergies Allergy Unknown Verified 06/10/22 08:56 PFSH Acute PFSH: Medical History Bradycardia Cognitive dysfunction COPD (chronic obstructive pulmonary disease) Degenerative arthritis Hypertension Sleep apnea Type 2 diabetes mellitus Surgical History History of ankle surgery Open reduction for right ankle fracture History of bronchoscopy (01/01/22) Bronchoscopy with EBUS and FNA biopsy of lymph nodes History of cholecystectomy 2020 [place], [place] Hx of total knee arthroplasty Right knee Port-A-Cath in place (01/24/22) Family History Mother Hypertension Myocardial infarction CAD (coronary artery disease) Cancer Son Diabetes Grandmother Diabetes Other Hyperlipidemia Lung disease Denies family history of Clotting disorder Dementia Psychiatric illness Chronic kidney disease (CKD) Suicide Anesthesia complication Bleeding disorder Stroke Social History Smoking and tobacco status: former smoker (Quit smoking 2004, smoked for 13 years) Quit status (tobacco): has quit using tobacco Year quit tobacco: 1972 Former quit date comment: 1.5 ppd X 10 years Alcohol intake: current Vitals/I&O/Wt Last Vital Signs Temp 98.4 F 02/17/23 18:08 Pulse 96 08/16/22 18:08 Resp 16 08/16/22 18:08 BP 173/8 08/16/22 18:08 Pulse Ox 91 08/16/22 18:08 O2 Del Method 08/16/22 18:08 08/16/22 08/16/22 08/16/22 06:59 14:59 22:59 Intake Total 1050 / 1050 Balance 1050 / 1050 Weight last 48 hrs Weight 80.286 kg Physical Exam Const: COMMON NORMALS: patient oriented x3 HENMT: COMMON NORMALS: normocephalic and atraumatic HEAD & SCALP: normocep halic and atraumatic Resp: COMMON NORMALS: clear to auscultation bilaterally EFFORT & INSPECTION: Yes symmetric chest movement AUSCULTATION: clear to auscultation bilaterally Cardio: COMMON NORMALS: regular rate, regular rhythm, S1 normal heart sound present, S2 normal heart sound present, No gallops present (Cardio), No murmurs present (Cardio), No rub (Cardio) and Peripheral pulses 2+ throughout RATE: regular rate RHYTHM: regular rhythm HEART SOUNDS: S1 normal heart sound present and S2 normal heart sound present PERIPHERAL PULSES: Peripheral pulses 2+ throughout GI: COMMON NORMALS: Normal to inspection, nondistended, normoactive bowel sounds present, Soft to palpation, non-tender, No hepatosplenomegaly present and no masses AUSCULTATION: Yes normoactive bowel sounds PALPATION: Yes Soft to palpation and Yes No hepatosplenomegaly present RECTAL EXAM: Yes deferred Extremity: COMMON NORMALS: no clubbing, cyanosis or edema and no pedal edema Neuro: COMMON NORMALS: patient oriented x3 Data 08/16/22 17:15 08/16/22 17:15 Micro: Microbiology 08/16/22 20:12 Blood Culture - Preliminary Blood SPECIMEN COLLECTED 08/16/22 20:17 Blood Culture - Preliminary Blood SPECIMEN COLLECTED A&P Assessment and plan (1) Pleural effusion: (2) Weakness: (3) Small cell lung cancer: (4) COPD (chronic obstructive pulmonary disease): (5) Hypertension: Plan 76 year old male past medical history of Ca rt lung completed chemotherapy,as well as radiation therapy 2/3 months back, COPD hypertension, was brought in from home with chief complaint of worsening shortness of breath as well as going on for the last 2 to 3 days, also reports 1 episode of fever with noted Tmax 100, about for 5 days back, is also complaining of chest pain with inspiration, denied any cough, sputum production. In the last couple of days he has also been experiencing significant generalized weakness, worsened to the point that he was having difficulty with ambulation today. Assessment: Symptomatic large right-sided pleural effusion: Possible malignant pleural effusion. Rule out other causes. CTA chest: Has shown large right-sided pleural effusion, no pulmonary embolism, New right cardiophrenic adenopathy,Right basilar atelectasis, Pulmonary emphysema. We will plan for diagnostic as well as therapeutic right-sided thoracentesis. Pleural fluid analysis Currently he is empirically covered with ceftriaxone ,azithromycin, clinical suspicion for pneumonia is low. History of COPD: DuoNebs Supplemental oxygen as needed History of CA right lung: S/p chemoradiation History of hypertension: Continue metoprolol for now Antihypertensive titration for goal blood pressure Generalized weakness: Follow serum B12 level Folic acid level PT on board Monitor orthostatic vital signs CODE STATUS full code DVT prophylaxis on Lovenox Attestations Medical Necessity Statement*: Patient needs to be in hospital for management of symptomatic right-sided pleural effusion. Anticipated length of stay greater than 2 midnights Coding Level of Care Code 42757 Diagnoses Pleural effusion J90 Weakness R53.1 Small cell lung cancer C34.90 COPD (chronic obstructive pulmonary disease) J44.9 Hypertension I10
[2022-08-16 22:30] VITALS: BP 158/85; PULSE 93; O2SAT 100
[2022-08-16 22:32] LABS: Add Urine Microscopic? YES; Bilirubin Urine Neg (Negative); Blood Urine 2+ (Negative); Glucose Urine UA Norm (Normal); Ketones Urine 1+ (Negative); Leukocyte Esterase Urine Negative (Negative); Nitrate Urine Negative (Negative); Protein Urine Neg (Negative); Urine Appearance Clear (CLEAR); Urine Color Yellow (Yellow); Urobilinogen Urine 1 mg/dL (Negative); pH Urine 7 (5-7)
[2022-08-16 22:35] LABS: Add Urine Culture? Yes; Bacteria Urine TRACE /hpf; Mucus Urine TRACE /hpf; Squamous Epithelial Cell Urine 0-4 /hpf (0-5); WBC Urine 0-4 /hpf (0-5)
[2022-08-16 23:00] VITALS: BP 142/80; PULSE 87; O2SAT 100
[2022-08-16] MEDS: enoxaparin 40 mg/0.4 mL Syringe SUBCUT (23:13)
[2022-08-17] VITALS (15 sets, daily range): BP systolic 113–156; BP diastolic 65–77; PULSE 62–94; RESP 16–22; TEMP 36.7–37.1; O2SAT 93–98
--- NOTE | 2022-08-17 00:56 | ECG_ITS ---
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 Measurements Intervals [place] Rate: 86 P: 0 OR: 0 QRS: 58 QRSD: 98 T: 138 QT: 409 QTc: 492 Interpretive Statements ATRIAL FIBRILLATION MODERATE ST DEPRESSION [0.05+ mV ST DEPRESSION] ABNORMAL QRS-T ANGLE [QRS-T AXIS DIFFERENCE > 60] Compared to ECG 08/16/2022 20:13:09 ST (T wave) deviation now present Sinus rhythm no longer present T-wave abnormality no longer present Electronically Signed On 08-17-2022 19:37:05 TAPE KELLER OPERATOR by Eugenio Olson M.D. [email or web address]
[2022-08-17 01:20] LABS: Troponin 5 6HR 43.27 ng/L (0-15)
[2022-08-17 01:25] LABS: Troponin 5 6HR Delta -6.73 ng/L (0-12)
[2022-08-17 04:44] LABS: Basophils % 0.4 %; Eosinophils # 0.2 10^3/uL (0.0-0.8); Eosinophils % 2.5 %; Hemoglobin 9.6 g/dL (11.7-16.6); Lymphocytes # 0.8 10^3/uL (0.8-4.8); Lymphocytes % 10.4 %; Mean Corpuscular Hemoglobin 34.3 pg (28.0-34.0); Mean Corpuscular Volume 107.1 fl (80-94); Mean Platelet Volume 10.9 fL (7.4-10.4); Monocytes # 0.9 10^3/uL (0.2-0.9); Monocytes % 11.8 %; Neutrophils % 74.6 %; Nucleated Red Blood Cells % 0 %; Platelet Count 154 10^3/cmm (130-400); Red Cell Distribution Width 14.4 % (12.1-15.1); White Blood Count 7.2 10^3/uL (4.0-10.0)
[2022-08-17 05:07] LABS: NT Pro B Type Natriuretic Pept 580 pg/mL (0-450); Procalcitonin 0.13 ng/mL (0-0.5); Thyroid Stimulating Hormone 1.33 uIU/mL (0.27-4.20)
[2022-08-17 05:18] LABS: Anion Gap 10.7 (5-19); Blood Urea Nitrogen 10 mg/dL (8-23); Calcium 8.4 mg/dL (8.5-10.5); Carbon Dioxide 28 mmol/L (22-29); Chloride 97 mmol/L (98-107); Creatinine Clr Calc Pharmacy 85.8827; Glucose 98 mg/dL (65-115); Magnesium 1.9 mg/dL (1.7-2.3); Osmolality Calculated 273 mOsm/kg (285-295); Potassium 3.7 mmol/L (3.5-5.1); Sodium 132 mmol/L (136-145)
[2022-08-17 06:29] LABS: Glucose Point of Care 111 mg/dL (70-110)
[2022-08-17] MEDS: ipratropium-albuterol 3 mL Neb INHALATION ×4 (07:47→20:27)
[2022-08-17 07:57] LABS: Vitamin B12 1083 pg/mL (232-1245)
[2022-08-17] MEDS: PARoxetine 20 mg Tablet 40 MG PO (08:24)
[2022-08-17] MEDS: metoprolol succinate ER (24 HR) 25 mg Tablet PO (08:25)
--- NOTE | 2022-08-17 09:27 | PM.CONSULT ---
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 However, his disease was otherwise stage IIIA (T2a, N2, M0) and underwent chemotherapy concurrently with radiation in january- february 2022. On 03/28/2022 he was admitted to the hospital with severe pancytopenia.? He had recovery on Neupogen and broad-spectrum antibiotic coverage and with PRBC and platelet transfusions.? During follow-up he has continued to have very marginal performance status.? At this point it is uncertain to what extent lab may be treatment related, to the underlying malignancy, or to other factors.? His restaging CT scans in April 2022 a very good response to treatment, but with suspected residual involvement in a right pleural-based nodule.? Head MRI showed no evidence of metastatic disease.? He does have a low B12 level, which may be a contributing factor. Given his marginal performance status, he has not received any further chemotherapy.? Oncology were planning to review CT scans with radiation oncology to see whether or not he may be eligible for SBRT to the pleural-based lesion.? In the meantime, he was started on B12 replacement. He also has h/o of COPD, Diabetes, hypertension He was brought in from home yesterday 08/18/21 with chief complaint of shortness of breath, gradually worsening in last 2 to 3 days, also reports 1 episode of fever with noted Tmax 100, about for 5 days back, associated with pleuritic chest pain and worsening weakness over last few days. Denied any cough, sputum production. Admission CTA chest showed moderate to large right-sided pleural effusion, no pulmonary embolism, New right cardiophrenic adenopathy,Right basilar atelectasis, Pulmonary emphysema. Normal wbc count. started on IV antibiotics rocephin and azithromycin. Pulmonary consultation requested for right thoracentesis. Patient seen at bedside and daughter is at bedside as well -They both mentioned that he is extremely weak for the last few days and had multiple falls -Overall he is getting more deconditioned; currently on 1 L nasal cannula and saturating 98% -Previously was using Symbicort for his COPD but currently does not use any inhalers -He was able to walk to his bed and restroom but lately even that is getting worse -Other labs and imaging reviewed Review of Systems General: Reports: 10 or more systems reviewed and unremarkable except in HPI and below Medications/Allergies Home Medications Medication Instructions Recorded Confirmed Last Taken Type paroxetine HCl 40 mg tablet (Paxil) 40 mg PO DAILY 01/28/22 08/17/22 03/27/22 08:00 History hydrocodone 5 mg-acetaminophen 325 1 - 2 tab PO DAILY PRN pain 30 04/03/22 08/17/22 Unknown Rx mg tablet days #60 tabs metoprolol succinate 25 mg 25 mg PO DAILY #30 tabs 06/26/22 08/17/22 Unknown Rx tablet,extended release 24 hr quetiapine 25 mg tablet (Seroquel) 12.5 mg PO BEDTIME 08/17/22 08/17/22 08/16/22 History Allergies Allergy/AdvReac Type Severity Reaction Status Date / Time No Known Drug Allergies Allergy Unknown Verified 06/10/22 08:56 Current Medications Generic Name Dose Route Start Last Admin Trade Name Freq PRN Reason Stop Dose Admin Albuterol/Ipratropium 3 ml 08/17/22 08:00 08/17/22 07:47 Ipratropium-Albuterol 3 Ml Neb INHALATION 3 ml QID.RESPIRATORY GIULIANO Administration Enoxaparin Sodium 40 mg 08/16/22 22:00 08/16/22 23:13 Enoxaparin 40 Mg/0.4 Ml Syringe SUBCUT 40 mg Q24H GIULIANO Administration Metoprolol Succinate 25 mg 08/17/22 09:00 08/17/22 08:25 Metoprolol Succinate Er (24 Hr) 25 Mg Tablet PO 25 mg DAILY GIULIANO Administration Paroxetine HCl 40 mg 08/17/22 09:00 08/17/22 08:24 Paroxetine 20 Mg Tablet PO 40 mg DAILY GIULIANO Administration PFSH Acute PFSH: Medical History Bradycardia Cognitive dysfunction COPD (chronic obstructive pulmonary disease) Degenerative arthritis Hypertension Sleep apnea Type 2 diabetes mellitus Surgical History History of ankle surgery Open reduction for right ankle fracture History of bronchoscopy (01/01/22) Bronchoscopy with EBUS and FNA biopsy of lymph nodes History of cholecystectomy 2020 [place], [place] Hx of total knee arthroplasty Right knee Port-A-Cath in place (01/24/22) Family History Mother Hypertension Myocardial infarction CAD (coronary artery disease) Cancer Son Diabetes Grandmother Diabetes Other Hyperlipidemia Lung disease Denies family history of Clotting disorder Dementia Psychiatric illness Chronic kidney disease (CKD) Suicide Anesthesia complication Bleeding disorder Stroke Social History Smoking and tobacco status: former smoker (Quit smoking 2004, smoked for 13 years) Quit status (tobacco): has quit using tobacco Year quit tobacco: 1972 Former quit date comment: 1.5 ppd X 10 years Alcohol intake: current Vitals/I&O/Wt Last Vital Signs Temp 98.2 F 08/17/22 07:12 Pulse 87 08/17/22 07:54 Resp 18 08/17/22 07:47 BP 152/77 08/17/22 07:12 Pulse Ox 98 08/17/22 07:47 O2 Del Method 08/17/22 07:47 O2 Flow Rate 1 08/17/22 07:47 08/16/22 08/17/22 08/17/22 22:59 06:59 14:59 Intake Total 1050 / 1050 250 / 1300 Balance 1050 / 1050 250 / 1300 Weight last 48 hrs Weight 177 lb Physical Exam Narrative: General: alert, NAD HEENT: conj clear, EOMI, PERRL, mmm, Neck: supple, no meningismus Heme: no cervical LAP Respiratory: Inspection: No visible deformity of the chest wall Palpation: Trachea is mildly deviated to the right, bilateral symmetric expansion Percussion: Dull percussion on right lower lung zone Auscultation: Reduced breath sounds right lower lung zone Cardiovascular: rrr, nl s1s2, no mrg Abdomen: soft, nt, nd, no r/g, bs+ Extremities: pulses +, no edema, no c/c : no CVA tenderness Skin: intact, no rash MSK: no back or neck pain Neurologic: grossly intact Data 08/17/22 04:00 08/17/22 04:00 Other Labs: Radiology Impressions Chest X-Ray 08/16/22 18:17 IMPRESSION: New right basilar infiltrate or atelectasis and small right pleural effusion. Chest CTA 08/16/22 19:21 IMPRESSION: 1. No evidence of pulmonary embolism. 2. Large right pleural effusion. 3. New right cardiophrenic adenopathy 4. Right basilar atelectasis 5. Pulmonary emphysema not significantly changed 6. Old granulomatous disease. COMMENTS: In the absence of a history or active diagnosis of lung cancer, it is recommended that this patient with emphysema be evaluated for enrollment in a low dose CT lung cancer screening program. Laboratory Results WBC 7.2 10^3/uL (4.0-10.0) 08/17/22 04:00 RBC 2.80 10^6/uL (4.1-5.3) L 08/17/22 04:00 Hgb 9.6 g/dL (11.7-16.6) L 08/17/22 04:00 Hct 30.0 % (42.0-52.0) L 08/17/22 04:00 MCV 107.1 fl (80-94) H 08/17/22 04:00 MCH 34.3 pg (28.0-34.0) H 08/17/22 04:00 MCHC 32.0 g/dL (30.0-36.0) 08/17/22 04:00 RDW 14.4 % (12.1-15.1) 08/17/22 04:00 Plt Count 154 10^3/cmm (130-400) 08/17/22 04:00 MPV 10.9 fL (7.4-10.4) H 08/17/22 04:00 Neut % (Auto) 74.6 % 08/17/22 04:00 Lymph % (Auto) 10.4 % 08/17/22 04:00 [place] % (Auto) 11.8 % 08/17/22 04:00 Eos % (Auto) 2.5 % 08/17/22 04:00 Baso % (Auto) 0.4 % 08/17/22 04:00 Neut # (Auto) 5.40 10^3/uL (1.8-7.7) 08/17/22 04:00 Lymph # (Auto) 0.8 10^3/uL (0.8-4.8) 08/17/22 04:00 [place] # (Auto) 0.9 10^3/uL (0.2-0.9) 08/17/22 04:00 Eos # (Auto) 0.2 10^3/uL (0.0-0.8) 08/17/22 04:00 Baso # (Auto) 0.0 10^3/uL (0.0-0.1) 08/17/22 04:00 Nucleated RBC % (auto) 0 % 08/17/22 04:00 Nucleated RBCs # 0.0 /100WBC 08/17/22 04:00 PT 14.90 SECONDS (12.1-14.9) 08/16/22 18:40 INR 1.13 (0.8-1.2) 08/16/22 18:40 D-Dimer 2.88 ug/mIFEU (0-0.59) H 08/16/22 18:40 Sodium 132 mmol/L (136-145) L 08/17/22 04:00 Potassium 3.7 mmol/L (3.5-5.1) 08/17/22 04:00 Chloride 97 mmol/L (98-107) L 08/17/22 04:00 Carbon Dioxide 28 mmol/L (22-29) 08/17/22 04:00 Anion Gap 10.7 (5-19) 08/17/22 04:00 BUN 10 mg/dL (8-23) 08/17/22 04:00 Creatinine 0.7 mg/dL (0.7-1.2) 08/17/22 04:00 GFR Calculation Not Reportable 08/17/22 04:00 Glucose 98 mg/dL (65-115) 08/17/22 04:00 POC Glucose 163 mg/dL (70-110) H 08/17/22 12:11 Calculated Osmolality 273 mOsm/kg (285-295) L 08/17/22 04:00 Calcium 8.4 mg/dL (8.5-10.5) L 08/17/22 04:00 Magnesium 1.9 mg/dL (1.7-2.3) 08/17/22 04:00 Total Bilirubin 0.7 mg/dL (0.15-1.2) 08/16/22 17:15 AST 21 U/L (0-40) 08/16/22 17:15 ALT < 5 U/L (0-41) 08/16/22 17:15 Alkaline Phosphatase 105 U/L (40-130) 08/16/22 17:15 Troponin T Baseline 50 ng/L (0-15) H 08/16/22 17:15 Troponin T 120 Minute 41.81 ng/L (0-15) H 08/16/22 19:40 Delta Troponin T -8.19 ABS# (0-10) L 08/16/22 19:40 Troponin T Hi Sens 6Hr 43.27 ng/L (0-15) H 08/17/22 00:30 Troponin T Hi Sens 6Hr Delta -6.73 ng/L (0-12) L 08/17/22 00:30 NT-Pro-B Natriuret Pep 580 pg/mL (0-450) H 08/17/22 04:00 Total Protein 6.8 g/dL (6.6-8.7) 08/16/22 17:15 Albumin 3.5 g/dL (3.5-5.2) 08/16/22 17:15 Globulin 3.3 g/dL (1.3-4.6) 08/16/22 17:15 Vitamin B12 1083 pg/mL (232-1245) 08/17/22 04:00 Folate 8.0 ng/mL (4.5-32.2) 08/17/22 04:00 Procalcitonin 0.13 ng/mL (0-0.5) 08/17/22 04:00 TSH 1.33 uIU/mL (0.27-4.20) 08/17/22 04:00 TSH Cancelled 08/17/22 04:00 Urine Color Yellow (Yellow) 08/16/22 22:05 Urine Appearance Clear (CLEAR) 08/16/22 22:05 Urine pH 7 (5-7) 08/16/22 22:05 Ur Specific [place] 1.010 (1.005-1.030) 08/16/22 22:05 Urine Protein Neg (Negative) 08/16/22 22:05 Urine Glucose (UA) Norm (Normal) 08/16/22 22:05 Urine Ketones 1+ (Negative) H 08/16/22 22:05 Urine Blood 2+ (Negative) H 08/16/22 22:05 Urine Nitrate Negative (Negative) 08/16/22 22:05 Urine Bilirubin Neg (Negative) 08/16/22 22:05 Urine Urobilinogen 1 mg/dL (Negative) H 08/16/22 22:05 Ur Leukocyte Esterase Negative (Negative) 08/16/22 22:05 Urine RBC 10-15 /hpf (0-2) H 08/16/22 22:05 Urine WBC 0-4 /hpf (0-5) H 08/16/22 22:05 Ur Squamous Epith Cells 0-4 /hpf (0-5) H 08/16/22 22:05 Amorphous Sediment Not Reportable 08/16/22 22:05 Urine Bacteria Trace /hpf (NONE) 08/16/22 22:05 Urine Mucus Trace /hpf 08/16/22 22:05 Micro: Microbiology 08/16/22 20:12 Blood Culture - Preliminary Blood SPECIMEN COLLECTED 08/16/22 20:17 Blood Culture - Preliminary Blood SPECIMEN COLLECTED A&P Assessment and plan (1) Pleural effusion: -S/p thoracentesis-today 1500 cc of hemorrhagic fluid drained -Suspicious for malignant effusion -Fluid sent for analysis, cell count, cultures, cytology -We will follow-up -I have counseled patient and his daughter-if fluid is recurrent and need repeat thoracentesis-we may need Pleurx cath drain placement in future for palliative purposes (2) 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 Abdi oncology as outpatient (3) COPD (chronic obstructive pulmonary disease): Previously seen by Dr. Torres in clinic-ordered PFTs but he never went He was taking advair as outpatient few months ago-currently is not using any inhalers I will recommend to discharge with Trelegy 1 puff daily (4) Physical deconditioning: -Possibly secondary to severe emphysema as well as small cell cancer and B12 deficiency -Patient received infusions and B12 level is normal currently -He needs physical therapy and rehabilitation (5) Weakness: Plan Patient have normal temperatures, white count, procalcitonin-no other signs of infection-please follow-up pleural fluid cultures -He may need echocardiogram to rule out underlying CAD and Lasix depending on cardiac function -Otherwise patient's overall physical deconditioning needs aggressive physical therapy/rehab -I will follow-up as outpatient to check for recurrence of fluid as well as many COPD Consult Attestations Medical Necessity Statement: Deferred to hospitalist Time Spent in Patient Care: Greater than 35 minutes (>than 50% of time spent in counselling and/or direct pt care on unit). Coding Level of Care Code 85684 Diagnoses Pleural effusion J90 Small cell lung cancer C34.90 COPD (chronic obstructive pulmonary disease) J44.9 Physical deconditioning R53.81 Weakness R53.1 Time Spent (min) 61
[2022-08-17 12:15] LABS: Glucose Point of Care 163 mg/dL (70-110)
--- NOTE | 2022-08-17 12:17 | PC.NURSE ---
Bedside right ultrasound guided thoracentesis performed by Dr. Pepe. Sterile technique utilized. Samples obtained and sent to lab. 1750mL of sanguineous drainage came out into vacuum sealed containers.
--- NOTE | 2022-08-17 12:23 | XRR_ITS ---
PROCEDURE INFORMATION: Exam: XR Chest Exam date and time: 08/17/2022 1:04 PM Age: 76 years old Clinical indication: Other: Postthoracentesis TECHNIQUE: Imaging protocol: Radiologic exam of the chest. Views: 1 view. COMPARISON: CR (CHEST, ) 08/16/2022 6:31 PM FINDINGS: Tubes, catheters and devices: There is a left central line present extending into the SVC Lungs: Hyperexpanded lungs are present corresponding to COPD No consolidation. Small granuloma the right mid lung field and right perihilar region. Right lower lobe opacity was present on prior examination which has now resolved Pleural spaces: Unremarkable. No pleural effusion. No pneumothorax. Heart/Mediastinum: Unremarkable. No cardiomegaly. Bones/joints: Unremarkable. XR/XR chest 1V portable [id number] IMPRESSION: 1. No acute findings. 2. Stable COPD. 3. Left central line in the SVC 4. Right lower lobe opacity has now resolved . 5. Calcified granulomas right lung
--- NOTE | 2022-08-17 12:25 | PM.ACPR ---
Procedure/Consent Time out: Time Out Performed: Yes Consent: Consent for Procedure: Consent obtained from patient Procedure Narrative: Pulmonary & Critical Care Medicine Procedure - Ultrasound guided Thoracentesis Procedure: CPT code 10817 thoracentesis, needle or catheter, aspiration of the pleural space; with imaging guidance Indication: Worsening right pleural effusion. 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 CT chest showed moderate to large right pleural effusion. We will proceed with thoracentesis for diagnostic as well as therapeutic benefits. Technique: The study was performed in an ACR accredited facility. Medication reconciliation form reviewed and any changes related this procedure resolved. Report: The procedure for thoracentesis was explained to the patient including the risks, benefits and possible complications. The patient was given the opportunity to ask questions, wished to proceed, and signed the written informed consent form. Using ultrasound guidance, a safe route of access was identified into the right pleural space. The site was then prepped and draped using maximal sterile barrier technique. The 1% lidocaine was used for local anesthetic. With sonographic guidance, a 6 Indian thoracentesis catheter was placed with return of 5 cc hemorrhagic pleural fluid. The catheter was slipped into the pleural cavity and approximately 1.5 L of sanguinous pleural fluid was removed. The patient tolerated the procedure well without any immediate complications. Impression: 1. Successful ultrasound-guided right thoracentesis with removal of approximately 1.5 L of sanguinous pleural fluid. POST THORACENTESIS Acute Procedures Epistaxis Control: Time out performed: Yes
[2022-08-17 16:55] LABS: Glucose Point of Care 101 mg/dL (70-110)
[2022-08-17 18:14] LABS: Hematocrit Body Fluid 0.4 %
[2022-08-17 18:18] LABS: Body Fluid Polynuclear #Cells 2.302; Body Fluid WBC 3135 /uL; Monocytes # Body Fluid 0.833
[2022-08-17 18:39] LABS: Apprearance, Body Fluid BLOODY; Color, Body Fluid RED
[2022-08-17 18:42] LABS: Cyto Order Verification Order Verified
[2022-08-17 19:16] LABS: Albumin Body Fluid 2.1 g/dL; Creatinine Body Fluid 0.75 (0.7-1.2); Total Protein Pleural Fluid 3.5 g/dL; Triglycerides, Pleural Fluid 20 mg/dL
[2022-08-17 19:17] LABS: LDH Pleural Fluid 558 U/L
[2022-08-17] MEDS: cefTRIAXone 1,000 MG in sodium chloride 0.9% (plus) 50 ML 100 MG IV (19:55)
--- NOTE | 2022-08-17 20:14 | P.PN_ITS ---
Subjective Subjective: This morning he is doing about the same. Denies new symptoms. Vitals/I&O/Wt Last Vital Signs Temp 98.0 F 08/17/22 15:49 Pulse 77 08/17/22 15:49 Resp 16 08/17/22 15:49 BP 113/67 08/17/22 15:49 Pulse Ox 95 08/17/22 15:49 O2 Del Method 08/17/22 15:34 O2 Flow Rate 1 08/17/22 11:31 08/17/22 08/17/22 08/17/22 06:59 14:59 22:59 Intake Total 250 / 1300 360 / 360 Balance 250 / 1300 360 / 360 Weight last 48 hrs Weight 80.286 kg Physical Exam Const: COMMON NORMALS: patient oriented x3 and alert GENERAL APPEARANCE: cooperative and frail appearing ORIENTATION/CONSCIOUSNESS: Yes awake HENMT: COMMON NORMALS: oropharynx normal Neck/C-Spine: COMMON NORMALS: no JVD Resp: COMMON NORMALS: normal respiratory effort AUSCULTATION: diminished lung sounds on the right in the lower lung Cardio: COMMON NORMALS: no JVD, regular rhythm, S1 normal heart sound present, S2 normal heart sound present and No murmurs present (Cardio) RHYTHM: regular rhythm HEART SOUNDS: S1 normal heart sound present and S2 normal heart sound present GI: COMMON NORMALS: Normal to inspection, nondistended, normoactive bowel sounds present, Soft to palpation and non-tender PALPATION: Yes Soft to palpation Extremity: COMMON NORMALS: no joint enlargement and no pedal edema Neuro: COMMON NORMALS: patient oriented x3 and moves all extremities SENSORIUM/ORIENTATION: Yes alert Skin: COMMON NORMALS: no rashes or lesions noted GENERAL SKIN EXAM: no rashes or lesions noted Data 08/17/22 04:00 08/17/22 04:00 Micro: Microbiology 08/16/22 20:12 Blood Culture - Preliminary Blood SPECIMEN COLLECTED 08/16/22 20:17 Blood Culture - Preliminary Blood SPECIMEN COLLECTED A&P Assessment and plan (1) Pleural effusion: (2) Weakness: (3) Small cell lung cancer: (4) COPD (chronic obstructive pulmonary disease): (5) Hypertension: Plan 76 year old male past medical history of Ca rt lung completed chemotherapy,as well as radiation therapy 2/3 months back, COPD hypertension, was brought in f [facility] with chief complaint of worsening shortness of breath as well as going on for the last 2 to 3 days, also reports 1 episode of fever with noted Tmax 100, about for 5 days back, is also complaining of chest pain with inspiration, denied any cough, sputum production. In the last couple of days he has also been experiencing significant generalized weakness, worsened to the point that he was having difficulty with ambulation today. Assessment: Symptomatic large right-sided pleural effusion: Discussed with pulmonology, appreciate consultation. Underwent thoracentesis with removal of 1.5 L sanguinous fluid. Monitor vital signs afterward. Condition with sanguinous fluid, anemia, requested reassessment blood count. At risk of bleeding. Lovenox stopped. SCD. Pleural fluid analysis Continue empirically with ceftriaxone ,azithromycin, clinical suspicion for pneumonia is low. History of COPD: DuoNebs Supplemental oxygen as needed History of CA right lung: S/p chemoradiation. Concern for recurrence, minimal residual pleural-based nodule right lower thorax. Consideration for radiation therapy as per oncology documentation reviewed. History of hypertension: Continue metoprolol for now Antihypertensive titration for goal blood pressure Generalized weakness: Reviewed results and normal serum B12 level Folic acid level normal PT assessment. Discussed with case management. Discharge planning. CODE STATUS full code DVT prophylaxis on SCD Attestations Medical Necessity Statement*: Continue admission for assessment management of hemorrhagic right-sided pleural effusion, reassessment of anemia, risk of bleeding, with underlying lung cancer. Diagnoses Pleural effusion J90 Weakness R53.1 Small cell lung cancer C34.90 COPD (chronic obstructive pulmonary disease) J44.9 Hypertension I10
[2022-08-17] MEDS: azithromycin 500 MG in sodium chloride 0.9% 250 ML 250 MG IV (20:34)
[2022-08-17 21:40] LABS: Glucose Point of Care 105 mg/dL (70-110)
[2022-08-18] VITALS (12 sets, daily range): BP systolic 123–168; BP diastolic 53–76; PULSE 64–107; RESP 15–20; TEMP 36.4–36.8; O2SAT 92–99
[2022-08-18 04:17] LABS: Basophils % 0.3 %; Eosinophils # 0.5 10^3/uL (0.0-0.8); Hematocrit 29.6 % (42.0-52.0); Hemoglobin 9.3 g/dL (11.7-16.6); Lymphocytes # 0.8 10^3/uL (0.8-4.8); Lymphocytes % 13.8 %; Mean Corpuscular HGB Conc 31.4 g/dL (30.0-36.0); Mean Corpuscular Hemoglobin 34.1 pg (28.0-34.0); Mean Corpuscular Volume 108.4 fl (80-94); Mean Platelet Volume 10.8 fL (7.4-10.4); Monocytes # 0.6 10^3/uL (0.2-0.9); Neutrophils % 67.6 %; Nucleated Red Blood Cells % 0 %; Platelet Count 155 10^3/cmm (130-400); Red Blood Count 2.73 10^6/uL (4.1-5.3); Red Cell Distribution Width 14.5 % (12.1-15.1); White Blood Count 5.8 10^3/uL (4.0-10.0)
[2022-08-18 04:38] LABS: Anion Gap 11.7 (5-19); Blood Urea Nitrogen 11 mg/dL (8-23); Calcium 8.5 mg/dL (8.5-10.5); Carbon Dioxide 29 mmol/L (22-29); Chloride 100 mmol/L (98-107); Creatinine Clr Calc Pharmacy 85.8827; Glucose 99 mg/dL (65-115); Osmolality Calculated 283 mOsm/kg (285-295); Potassium 3.7 mmol/L (3.5-5.1); Sodium 137 mmol/L (136-145)
[2022-08-18 06:38] LABS: Glucose Point of Care 85 mg/dL (70-110)
[2022-08-18] MEDS: ipratropium-albuterol 3 mL Neb INHALATION ×4 (09:20→20:15)
[2022-08-18] MEDS: metoprolol succinate ER (24 HR) 25 mg Tablet PO (09:59)
[2022-08-18] MEDS: PARoxetine 20 mg Tablet 40 MG PO (09:59)
[2022-08-18 11:19] LABS: INR 1.03 (0.8-1.2)
[2022-08-18 11:30] LABS: Glucose Point of Care 161 mg/dL (70-110)
[2022-08-18] MEDS: cefTRIAXone 1,000 MG in sodium chloride 0.9% (plus) 50 ML 100 MG IV (20:02)
--- NOTE | 2022-08-18 20:38 | P.PN_ITS ---
Subjective Subjective: He reports breathing is feeling somewhat better. Discussed with him regarding worsened anemia hemoglobin down to 9.3. Vitals/I&O/Wt Last Vital Signs Temp 98.2 F 08/18/22 16:00 Pulse 75 08/18/22 20:15 Resp 16 08/18/22 20:15 BP 123/53 08/18/22 16:00 Pulse Ox 95 08/18/22 20:15 O2 Del Method 08/18/22 20:15 O2 Flow Rate 1 08/17/22 11:31 08/18/22 08/18/22 08/18/22 06:59 14:59 22:59 Intake Total 240 / 900 360 / 360 Balance 240 / 900 360 / 360 Physical Exam Const: COMMON NORMALS: patient oriented x3 and alert GENERAL APPEARANCE: cooperative and frail appearing ORIENTATION/CONSCIOUSNESS: Yes awake HENMT: COMMON NORMALS: oropharynx normal Neck/C-Spine: COMMON NORMALS: no JVD Resp: COMMON NORMALS: normal respiratory effort AUSCULTATION: other (Improved air entry) Cardio: COMMON NORMALS: no JVD, regular rhythm, S1 normal heart sound present, S2 normal heart sound present and No murmurs present (Cardio) RHYTHM: regular rhythm HEART SOUNDS: S1 normal heart sound present and S2 normal heart sound present GI: COMMON NORMALS: Normal to inspection, nondistended, normoactive bowel sounds present, Soft to palpation and non-tender PALPATION: Yes Soft to palpation Extremity: COMMON NORMALS: no joint enlargement and no pedal edema Neuro: COMMON NORMALS: patient oriented x3 and moves all extremities SENSORIUM/ORIENTATION: Yes alert Skin: COMMON NORMALS: no rashes or lesions noted GENERAL SKIN EXAM: no rashes or lesions noted Data 08/18/22 03:26 08/18/22 03:26 Micro: Microbiology 08/17/22 11:56 Gram Stain - Final Pleural Fluid Body Fluid Culture - Preliminary 08/16/22 22:05 Urine Culture - Preliminary Urine,Clean Catch 08/16/22 20:12 Blood Culture - Preliminary Blood NEGATIVE TO DATE 08/16/22 20:17 Blood Culture - Preliminary Blood NEGATIVE TO DATE A&P Assessment and plan (1) Pleural effusion: (2) Weakness: (3) Small cell lung cancer: (4) COPD (chronic obstructive pulmonary disease): (5) Hypertension: Plan 76 year old male past medical history of Ca rt lung completed chemotherapy,as well as radiation therapy 2/3 months back, COPD hypertension, was brought in from home with chief complaint of worsening shortness of breath as well as going on for the last 2 to 3 days, also reports 1 episode of fever with noted Tmax 100, about for 5 days back, is also complaining of chest pain with inspiration, denied any cough, sputum production. In the last couple of days he has also been experiencing significant generalized weakness, worsened to the point that he was having difficulty with ambulation today. Assessment: Acute anemia: Hemoglobin with noted downtrend to 9.6 from 11 yesterday, today further downtrend to 9.3. Recheck requested for tonight and in the morning. Requested also INR, results reviewed, appears normal. Lovenox had been withheld since yesterday. Follow-up hemoglobin due to risk of intrathoracic bleeding possibly from malignant site causing the blood-tinged effusion. Symptomatic large right-sided pleural effusion: Follow-up with pulmonology in 1 month. Discussed with pulmonology, appreciate consultation. Underwent thorace ntesis with removal of 1.5 L sanguinous fluid. Monitor vital signs afterward. Condition with sanguinous fluid, anemia, requested reassessment blood count. At risk of bleeding. Lovenox stopped. SCD. Pleural fluid analysis Continue empirically with ceftriaxone ,azithromycin, clinical suspicion for pneumonia is low. History of COPD: DuoNebs Supplemental oxygen as needed History of CA right lung: S/p chemoradiation. Concern for recurrence, minimal residual pleural-based nodule right lower thorax. Consideration for radiation therapy as per oncology documentation reviewed. History of hypertension: Continue metoprolol for now Antihypertensive titration for goal blood pressure Generalized weakness: Reviewed results and normal serum B12 level Folic acid level normal PT assessment. Discussed with case management. Discharge planning. Plans for SNF. He did work with therapy [facility] today, walked to the door, then back to the bed due to pain in his knees. Did better today compared to yesterday. Stumbled a few times. Required some assistance. CODE STATUS full code DVT prophylaxis on SCD Attestations Medical Necessity Statement*: Continue admission for assessment of acute anemia with blood in pleural effusion suspected malignancy related with risk of further intrathoracic bleeding and anemia with decreasing hemoglobin. Other Coding Information Focused coding review requested Diagnoses Pleural effusion J90 Weakness R53.1 Small cell lung cancer C34.90 COPD (chronic obstructive pulmonary disease) J44.9 Hypertension I10
[2022-08-18 20:59] LABS: Hemoglobin 9.1 g/dL (11.7-16.6)
[2022-08-18] MEDS: azithromycin 500 MG in sodium chloride 0.9% 250 ML 250 MG IV (21:10)
[2022-08-19] VITALS (13 sets, daily range): BP systolic 141–164; BP diastolic 58–91; PULSE 58–84; RESP 16–18; TEMP 36.4–36.8; O2SAT 94–99; BMI 24.5
[2022-08-19 03:00] LABS: Basophils % 0.4 %; Eosinophils # 0.4 10^3/uL (0.0-0.8); Eosinophils % 7.3 %; Hematocrit 30.3 % (42.0-52.0); Hemoglobin 9.3 g/dL (11.7-16.6); Lymphocytes # 0.6 10^3/uL (0.8-4.8); Lymphocytes % 11.6 %; Mean Corpuscular HGB Conc 30.7 g/dL (30.0-36.0); Mean Corpuscular Hemoglobin 32.7 pg (28.0-34.0); Mean Corpuscular Volume 106.7 fl (80-94); Mean Platelet Volume 10.4 fL (7.4-10.4); Monocytes # 0.5 10^3/uL (0.2-0.9); Monocytes % 8.9 %; Neutrophils # 3.94 10^3/uL (1.8-7.7); Neutrophils % 71.4 %; Nucleated Red Blood Cells % 0 %; Platelet Count 155 10^3/cmm (130-400); Red Blood Count 2.84 10^6/uL (4.1-5.3); Red Cell Distribution Width 14.1 % (12.1-15.1); White Blood Count 5.5 10^3/uL (4.0-10.0)
[2022-08-19 03:24] LABS: Anion Gap 10.8 (5-19); Blood Urea Nitrogen 14 mg/dL (8-23); Calcium 8.4 mg/dL (8.5-10.5); Carbon Dioxide 30 mmol/L (22-29); Chloride 106 mmol/L (98-107); Creatinine Clr Calc Pharmacy 85.8827; Glucose 123 mg/dL (65-115); Osmolality Calculated 298 mOsm/kg (285-295); Potassium 3.8 mmol/L (3.5-5.1); Sodium 143 mmol/L (136-145)
[2022-08-19] MEDS: albuterol 2.5 mg/3 mL Neb INHALATION ×2 (08:29→16:00)
[2022-08-19] MEDS: ipratropium 0.5 mg/2.5 mL Neb INHALATION ×2 (08:29→16:00)
[2022-08-19] MEDS: metoprolol succinate ER (24 HR) 25 mg Tablet PO (10:22)
[2022-08-19] MEDS: PARoxetine 20 mg Tablet 40 MG PO (10:22)
[2022-08-19 12:04] LABS: Glucose Point of Care 140 mg/dL (70-110)
--- NOTE | 2022-08-19 12:23 | PC.SOCIAL ---
IMM Update pg 2 of IMM updated and reviewed w/ patient and his . Copy provided and Copy dated, initialed and placed in chart.
--- NOTE | 2022-08-19 13:27 | SUR.EXTENDED ---
Pt was up roaming orr without assistants and confused, have a chair alarm set
--- NOTE | 2022-08-19 17:18 | P.PN_ITS ---
Subjective Subjective: no acute interim events, patient sleeping comfotably at time of assessment, he was previously intermittently confused and disoriented. Medications: Reviewed: Yes Vitals/I&O/Wt Last Vital Signs Temp 97.5 F L 08/19/22 16:00 Pulse 78 08/19/22 16:00 Resp 16 08/19/22 16:00 BP 147/91 08/19/22 16:00 Pulse Ox 98 08/19/22 16:00 O2 Del Method 08/19/22 16:00 O2 Flow Rate 1 08/19/22 16:00 08/19/22 08/19/22 08/19/22 06:59 14:59 22:59 Intake Total 480 / 480 Balance 480 / 480 Weight last 48 hrs Weight 79.889 kg Physical Exam Narrative: General: No acute distress, AO x2 HEENT: PERRLA, pupils bilaterally equal and reactive, pallors not present Chest: Normal vesicular breath sounds, no added sounds, equal good air entry bilaterally CVS: S1-S2 regular, no murmurs, no tachycardia, no gallops, no rubs Abdomen: Soft, nontender, no organomegaly, bowel sounds present Neuro: No focal deficits, no facial deformity, AO x1-2, power 5/5 in all limbs Data 08/19/22 02:17 08/19/22 02:17 Micro: Microbiology 08/17/22 11:56 Gram Stain - Final Pleural Fluid Body Fluid Culture - Preliminary 08/16/22 22:05 Urine Culture - Final Urine,Clean Catch A&P Assessment and plan (1) Pleural effusion: (2) Weakness: (3) Small cell lung cancer: (4) COPD (chronic obstructive pulmonary disease): (5) Hypertension: Plan 76 year old male past medical history of Ca rt lung completed chemotherapy,as well as radiation therapy 2/3 months back, COPD hypertension, was brought in from home with chief complaint of worsening shortness of breath as well as going on for the last 2 to 3 days, also reports 1 episode of fever with noted Tmax 100, about for 5 days back, is also complaining of chest pain with inspiration, denied any cough, sputum production. In the last couple of days he has also been experiencing significant generalized weakness, worsened to the point that he was having difficulty with ambulation today. Assessment: Acute anemia: Hemoglobin currently stable at 9.3. Requested also INR, results reviewed, appears normal. Lovenox had been withheld since yesterday. Follow-up hemoglobin due to risk of intrathoracic bleeding possibly from malignant site causing the blood-tinged effusion. Symptomatic large right-sided pleural effusion: Follow-up with pulmonology in 1 month. Discussed with pulmonology, appreciate consultation. Underwent thoracentesis with removal of 1.5 L sanguinous fluid. Condition with sanguinous fluid, anemia, requested reassessment blood count. At risk of bleeding. Lovenox stopped. SCD. Pleural fluid analysis c/w exudative lesion. Continue empirically with ceftriaxone ,d/c azithromycin, clinical suspicion for pneumonia is low. History of COPD: DuoNebs Supplemental oxygen as needed History of CA right lung: S/p chemoradiation. Concern for recurrence, minimal residual pleural-based nodule right lower thorax. Consideration for radiation therapy as per oncology documentation reviewed. History of hypertension: Continue metoprolol for now Antihypertensive titration for goal blood pressure Generalized weakness: Reviewed results and normal serum B12 level Folic acid level normal PT assessment. Discussed with case management. Discharge planning. Plans for SNF. He did work with [employer] today, walked to the door, then back to the bed due to pain in his knees. Did better today compared to yesterday. Stumbled a few times. Required some assistance. CODE STATUS full code DVT prophylaxis on SCD Attestations Medical Necessity Statement*: awaiting appropriate disposition planning Coding Level of Care Code Acute Code for Chg Fwd Diagnoses Pleural effusion J90 Weakness R53.1 Small cell lung cancer C34.90 COPD (chronic obstructive pulmonary disease) J44.9 Hypertension I10
[2022-08-19 17:28] LABS: Glucose Point of Care 148 mg/dL (70-110)
[2022-08-19] MEDS: cefTRIAXone 1,000 MG in sodium chloride 0.9% (plus) 50 ML 100 MG IV (19:56)
[2022-08-20] VITALS (8 sets, daily range): BP systolic 128–174; BP diastolic 61–75; PULSE 58–114; RESP 16–18; TEMP 36.4–36.6; O2SAT 94–100; BMI 25.1
[2022-08-20 06:08] LABS: Basophils % 0.5 %; Eosinophils # 0.7 10^3/uL (0.0-0.8); Eosinophils % 12.4 %; Hematocrit 31.2 % (42.0-52.0); Hemoglobin 9.7 g/dL (11.7-16.6); Lymphocytes # 0.7 10^3/uL (0.8-4.8); Lymphocytes % 12.4 %; Mean Corpuscular HGB Conc 31.1 g/dL (30.0-36.0); Mean Corpuscular Hemoglobin 33.7 pg (28.0-34.0); Mean Corpuscular Volume 108.3 fl (80-94); Mean Platelet Volume 10.3 fL (7.4-10.4); Monocytes # 0.6 10^3/uL (0.2-0.9); Monocytes % 9.8 %; Neutrophils # 3.68 10^3/uL (1.8-7.7); Neutrophils % 64.5 %; Nucleated Red Blood Cells % 0 %; Platelet Count 167 10^3/cmm (130-400); Red Blood Count 2.88 10^6/uL (4.1-5.3); Red Cell Distribution Width 14.2 % (12.1-15.1); White Blood Count 5.7 10^3/uL (4.0-10.0)
[2022-08-20 06:26] LABS: Alanine Aminotransferase < 5 U/L (0-41); Alkaline Phosphatase 83 U/L (40-130); Anion Gap 11.1 (5-19); Aspartate Amino Transferase 13 U/L (0-40); Blood Urea Nitrogen 13 mg/dL (8-23); Calcium 8.4 mg/dL (8.5-10.5); Carbon Dioxide 30 mmol/L (22-29); Chloride 104 mmol/L (98-107); Globulin 3.4 g/dL (1.3-4.6); Glucose 117 mg/dL (65-115); Osmolality Calculated 293 mOsm/kg (285-295); Potassium 4.1 mmol/L (3.5-5.1); Sodium 141 mmol/L (136-145); Total Bilirubin 0.3 mg/dL (0.15-1.2); Total Protein 6.4 g/dL (6.6-8.7)
[2022-08-20] MEDS: ipratropium 0.5 mg/2.5 mL Neb INHALATION ×2 (08:05→11:29)
[2022-08-20] MEDS: albuterol 2.5 mg/3 mL Neb INHALATION ×2 (08:05→11:29)
[2022-08-20] MEDS: metoprolol succinate ER (24 HR) 25 mg Tablet PO (08:43)
[2022-08-20] MEDS: PARoxetine 20 mg Tablet 40 MG PO (08:43)
[2022-08-20 11:42] LABS: Glucose Point of Care 120 mg/dL (70-110)
--- NOTE | 2022-08-20 12:51 | P.DS_ITS ---
Discharge Providers Date of Admission: 08/16/22 21:44 Date of Discharge: August 20, 2022 Attending Provider at Admission: Benjamin Willett MD Attending Provider at Discharge: Gabriella Adam MD Primary Care Provider: Kyle Thompson MD Diagnoses at Discharge Discharge Diagnosis (1) Pleural effusion: Status: Acute (2) Weakness: Status: Acute (3) Small cell lung cancer: Status: Acute (4) COPD (chronic obstructive pulmonary disease): Status: Acute (5) Hypertension: Status: Acute Reason for Visit Reason for Visit: WEAKNESS/ SOB Brief History: Rohit Merritt is a 76 year old male past medical history of Ca rt lung completed chemotherapy,as well as radiation therapy 2/3 months back,? COPD hypertension, was brought in from home with chief complaint of worsening shortness of breath as well as going on for the last 2 to 3 days, also reports 1 episode of fever with noted Tmax 100, about for 5 days back, is also complaining of chest pain with inspiration, denied any cough, sputum production.? In the last couple of days he has also been experiencing significant generalized weakness, worsened to the point that he was having difficulty with ambulation today. CTA chest: Has shown large right-sided pleural effusion, no pulmonary embolism, New right cardiophrenic adenopathy,Right basilar atelectasis, Pulmonary emphysema. Hospital Course Hospital Course (1) Pleural effusion: -S/p thoracentesis on 08/17 -1500 cc of hemorrhagic fluid drained -Pleural fluid analaysis s/o exudative effusion - no growth on cultures, cytology with acute and chronic inflammatory cells - patient currently needing 1lpm supplemental 02, may be weaned down as tolerated - Follow up with pulmonology clinic and oncology if fluid is recurrent and need repeat thoracentesis-we may need Pleurx cath drain placement in future for palliative purposes He received empiric CTX and azithromycin, abx not continued at discharge as normal temperatures, normal white count, negative pleural fluid cultures (2) 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 Abdi oncology as outpatient (3) COPD (chronic obstructive pulmonary disease): Previously seen by Dr. Torres in clinic-ordered PFTs but not completed He was taking advair as outpatient few months ago-currently is not using any inhalers Pulmonology recommend to discharge with Trelegy 1 puff daily (4) Physical deconditioning: -Possibly secondary to severe emphysema as well as small cell cancer and B12 deficiency -Patient received infusions and B12 level is normal currently -He needs physical therapy and rehabilitation, tarnsitioned to SNF for the same. (5) Acute anemia: Hemoglobin with noted downtrend to 9.1 from 11. Lovenox had been withheld since yesterday.?No other bleeding source apart from hemorrhagic pleural effusion noted. Hb remained stable between 08/17-08/20 with discharge hb at 9.7 Physical Exam Narrative: General: No acute distress, AO x3 HEENT: PERRLA, pupils bilaterally equal and reactive, pallors not present Chest: Normal vesicular breath sounds, no added sounds, equal good air entry bilaterally CVS: S1-S2 regular, no murmurs, no tachycardia, no gallops, no rubs Abdomen: Soft, nontender, no organomegaly, bowel sounds present Neuro: No focal deficits, no facial deformity, AO x3, power 5/5 in all limbs Discharge Data Studies Completed and Pending Completed Studies During Hospitalization Category Date Time Status CTA chest [CT angio chest PE protcl [id number]] Stat Cat Scan 08/16/22 19:21 Completed XR chest 1V portable [id number] Routine Exams 08/17/22 12:23 Completed XR chest 1V portable [id number] Stat Exams 08/16/22 18:17 Completed Pending at discharge Category Date Time Status Blood Culture Stat Lab 08/16/22 20:12 Results COVID [SARS Covid-2 Antigen] Routine Lab 08/20/22 12:11 Uncollected Mycobacteria, Culture w/Fluor Routine Lab 08/17/22 11:56 Received Cytology [PTH] Routine Pth 08/17/22 12:24 Received Radiology Impressions Chest CTA 08/16/22 19:21 IMPRESSION: 1. No evidence of pulmonary embolism. 2. Large right pleural effusion. 3. New right cardiophrenic adenopathy 4. Right basilar atelectasis 5. Pulmonary emphysema not significantly changed 6. Old granulomatous disease. COMMENTS: In the absence of a history or active diagnosis of lung cancer, it is recommended that this patient with emphysema be evaluated for enrollment in a low dose CT lung cancer screening program. Chest X-Ray 08/17/22 12:23 IMPRESSION: 1. No acute findings. 2. Stable COPD. 3. Left central line in the SVC 4. Right lower lobe opacity has now resolved . 5. Calcified granulomas right lung Laboratory Results WBC 5.7 10^3/uL (4.0-10.0) 08/20/22 06:01 RBC 2.88 10^6/uL (4.1-5.3) L 08/20/22 06:01 Hgb 9.7 g/dL (11.7-16.6) L 08/20/22 06:01 Hct 31.2 % (42.0-52.0) L 08/20/22 06:01 MCV 108.3 fl (80-94) H 08/20/22 06:01 MCH 33.7 pg (28.0-34.0) 08/20/22 06:01 MCHC 31.1 g/dL (30.0-36.0) 08/20/22 06:01 RDW 14.2 % (12.1-15.1) 08/20/22 06:01 Plt Count 167 10^3/cmm (130-400) 08/20/22 06:01 MPV 10.3 fL (7.4-10.4) 08/20/22 06:01 Neut % (Auto) 64.5 % 08/20/22 06:01 Lymph % (Auto) 12.4 % 08/20/22 06:01 [place] % (Auto) 9.8 % 08/20/22 06:01 Eos % (Auto) 12.4 % 08/20/22 06:01 Baso % (Auto) 0.5 % 08/20/22 06:01 Neut # (Auto) 3.68 10^3/uL (1.8-7.7) 08/20/22 06:01 Lymph # (Auto) 0.7 10^3/uL (0.8-4.8) L 08/20/22 06:01 [place] # (Auto) 0.6 10^3/uL (0.2-0.9) 08/20/22 06:01 Eos # (Auto) 0.7 10^3/uL (0.0-0.8) 08/20/22 06:01 Baso # (Auto) 0.0 10^3/uL (0.0-0.1) 08/20/22 06:01 Nucleated RBC % (auto) 0 % 08/20/22 06:01 Nucleated RBCs # 0.0 /100WBC 08/20/22 06:01 PT 13.80 SECONDS (12.1-14.9) 08/18/22 10:36 INR 1.03 (0.8-1.2) 08/18/22 10:36 D-Dimer 2.88 ug/mIFEU (0-0.59) H 08/16/22 18:40 Sodium 141 mmol/L (136-145) 08/20/22 06:01 Potassium 4.1 mmol/L (3.5-5.1) 08/20/22 06:01 Chloride 104 mmol/L (98-107) 08/20/22 06:01 Carbon Dioxide 30 mmol/L (22-29) H 08/20/22 06:01 Anion Gap 11.1 (5-19) 08/20/22 06:01 BUN 13 mg/dL (8-23) 08/20/22 06:01 Creatinine 0.7 mg/dL (0.7-1.2) 08/20/22 06:01 GFR Calculation Not Reportable 08/20/22 06:01 Glucose 117 mg/dL (65-115) H 08/20/22 06:01 POC Glucose 120 mg/dL (70-110) H 08/20/22 11:36 Calculated Osmolality 293 mOsm/kg (285-295) 08/20/22 06:01 Calcium 8.4 mg/dL (8.5-10.5) L 08/20/22 06:01 Magnesium 1.9 mg/dL (1.7-2.3) 08/17/22 04:00 Total Bilirubin 0.3 mg/dL (0.15-1.2) 08/20/22 06:01 AST 13 U/L (0-40) 08/20/22 06:01 ALT < 5 U/L (0-41) 08/20/22 06:01 Alkaline Phosphatase 83 U/L (40-130) 08/20/22 06:01 Troponin T Baseline 50 ng/L (0-15) H 08/16/22 17:15 Troponin T 120 Minute 41.81 ng/L (0-15) H 08/16/22 19:40 Delta Troponin T -8.19 ABS# (0-10) L 08/16/22 19:40 Troponin T Hi Sens 6Hr 43.27 ng/L (0-15) H 08/17/22 00:30 Troponin T Hi Sens 6Hr Delta -6.73 ng/L (0-12) L 08/17/22 00:30 NT-Pro-B Natriuret Pep 580 pg/mL (0-450) H 08/17/22 04:00 Total Protein 6.4 g/dL (6.6-8.7) L 08/20/22 06:01 Albumin 3.0 g/dL (3.5-5.2) L 08/20/22 06:01 Globulin 3.4 g/dL (1.3-4.6) 08/20/22 06:01 Vitamin B12 1083 pg/mL (232-1245) 08/17/22 04:00 Folate 8.0 ng/mL (4.5-32.2) 08/17/22 04:00 Procalcitonin 0.13 ng/mL (0-0.5) 08/17/22 04:00 TSH 1.33 uIU/mL (0.27-4.20) 08/17/22 04:00 TSH Cancelled 08/17/22 04:00 Urine Color Yellow (Yellow) 08/16/22 22:05 Urine Appearance Clear (CLEAR) 08/16/22 22:05 Urine pH 7 (5-7) 08/16/22 22:05 Ur Specific Wisdom 1.010 (1.005-1.030) 08/16/22 22:05 Urine Protein Neg (Negative) 08/16/22 22:05 Urine Glucose (UA) Norm (Normal) 08/16/22 22:05 Urine Ketones 1+ (Negative) H 08/16/22 22:05 Urine Blood 2+ (Negative) H 08/16/22 22:05 Urine Nitrate Negative (Negative) 08/16/22 22:05 Urine Bilirubin Neg (Negative) 08/16/22 22:05 Urine Urobilinogen 1 mg/dL (Negative) H 08/16/22 22:05 Ur Leukocyte Esterase Negative (Negative) 08/16/22 22:05 Urine RBC 10-15 /hpf (0-2) H 08/16/22 22:05 Urine WBC 0-4 /hpf (0-5) H 08/16/22 22:05 Ur Squamous Epith Cells 0-4 /hpf (0-5) H 08/16/22 22:05 Amorphous Sediment Not Reportable 08/16/22 22:05 Urine Bacteria Trace /hpf (NONE) 08/16/22 22:05 Urine Mucus Trace /hpf 08/16/22 22:05 Fluid Color Red 08/17/22 11:56 Fluid Appearance Bloody 08/17/22 11:56 Fluid WBC 3135 /uL 08/17/22 11:56 Fluid RBC 29.000 10^3/uL 08/17/22 11:56 Fluid Hematocrit 0.4 % 08/17/22 11:56 Fld Polynuclear WBCs # 2.302 08/17/22 11:56 Fld Polynuclear WBCs % 73.400 % 08/17/22 11:56 Fl Mononucl WBCs #(Auto) 0.833 08/17/22 11:56 Fl Mononuclear % Auto 26.600 % 08/17/22 11:56 Fluid Albumin 2.1 g/dL 08/17/22 11:56 Fluid Creatinine 0.75 (0.7-1.2) 08/17/22 11:56 Pleural pH 8.00 (6.5-7.5) H 08/17/22 11:56 Pleural Total Protein 3.5 g/dL 08/17/22 11:56 Pleural LDH 558 U/L 08/17/22 11:56 Pleural Glucose 117.0 mg/dL 08/17/22 11:56 Pleural Amylase 49.0 U/L 08/17/22 11:56 Pleural Triglycerides 20 mg/dL 08/17/22 11:56 Vitals Last Vital Signs Temp 97.6 F 08/20/22 12:00 Pulse 68 08/20/22 12:01 Resp 18 08/20/22 12:00 BP 128/61 08/20/22 12:00 Pulse Ox 100 08/20/22 12:00 O2 Del Method 08/20/22 11:56 O2 Flow Rate 2 08/20/22 11:56 Discharge Plan Discharge Patient Disposition: Xfer SNF Condition: Stable Prescriptions: New Trelegy Ellipta 100-62.5-25 mcg blister with device 1 inh inhalation DAILY 30 Days Qty: 60 3RF Continued paroxetine HCl [Paxil] 40 mg tablet 40 mg PO DAILY hydrocodone-acetaminophen 5-325 mg tablet 1 - 2 tab PO DAILY PRN (Reason: pain) 30 Days Qty: 60 0RF metoprolol succinate 25 mg tablet extended release 24 hr 25 mg PO DAILY Qty: 30 0RF Seroquel 25 mg Tablet 12.5 mg PO BEDTIME Discharge Orders: Discharge Order (Routine); Ordered 08/20/22 Ordered By: Gabriella Adam Referrals: [facility] [Other] Kyle Thompson MD [Primary Care Provider] - Datar,Doug Marcano MD [Physician] - 2 weeks Huseyin bAdi MD [Hospitalist] - 2 weeks Discharge Attestations Time Spent in Discharge Care*: greater than 30 min Quality Metrics Clinical Quality Measures [ No reported AMI, CVA or VTE this stay] Coding Level of Care Code Acute Code for Chg Fwd Diagnoses Pleural effusion J90 Weakness R53.1 Small cell lung cancer C34.90 COPD (chronic obstructive pulmonary disease) J44.9 Hypertension I10
[2022-08-20 15:03] LABS: SARS Covid-2 Antigen negative (Negative)
== END 2022-08-20 15:20 | disposition skilled nursing facility (03) | DRG 188 ==
LOC: ER 21:57 → MEDSURG 22:16
PROVIDERS: Internal Medicine; Internal Medicine Pulmonary Disease; Admitting Provider Internal Medicine; Emergency Provider Emergency Medicine; PCP Family Medicine; Visit Provider Student in an Organized Health Care Education/Training Program
DX: J90 Pleural effusion, not elsewhere classified (principal); Z85.118 Personal history of other malignant neoplasm of bronchus and lung; R59.0 Localized enlarged lymph nodes; J43.9 Emphysema, unspecified; I10 Essential (primary) hypertension; Z92.21 Personal history of antineoplastic chemotherapy; Z92.3 Personal history of irradiation; D64.9 Anemia, unspecified; Z79.891 Long term (current) use of opiate analgesic; G47.30 Sleep apnea, unspecified; Z96.651 Presence of right artificial knee joint; Z87.891 Personal history of nicotine dependence; R29.6 Repeated falls
CPT/HCPCS: 36415; 36416; 71045; 71275; 80048; 80053; 80503; 81001; 82042; 82150; 82570; 82607; 82746; 82945; 82962; 83615; 83735; 83880; 83986; 84145; 84157; 84443; 84478; 84484; 85014; 85018; 85025; 85378; 85610; 87015; 87040; 87070; 87075; 87086; 87116; 87205; 87206; 87426; 87801; 88112; 88305; 89050; 93005; 94640; 96365; 96367; 96372; 96375; 97116; 97161; 97530; 99285; J0360; J0456; J0696; J1650; J7030; J7050; J7613; J7644; Q9967